=== PATIENT | male | born 1940 | race Caucasian/White ===

== ENCOUNTER 2017-05-29 11:58 | Emergency (ER) | payer MEDICARE, MEDICAID ==
[~2017-05-29] VITALS: Ht 177.8 cm; Wt 50.0 kg
[~2017-05-29 11:58] MED LIST: ACET325T15 PO; CHOL5000 PO; DOCU1CAP39 PO; FAMO20TA2 PO; FLUO5CRE TOPICAL; HYDRO2.5%T TOP; METH2.5 PO; METO25 PO; METO25TA3 PO; MIRTA15 PO; NORC5TAB PO; NYSTT TOPICAL; ONDA4TAB7 PO; POTA-243 PO
[2017-05-29 12:04] VITALS: BP 135/75; PULSE 103; RESP 18; TEMP 98.7; O2SAT 97
[2017-05-29 12:05] VITALS: BP 121/63; PULSE 106; RESP 16; O2SAT 98
--- NOTE | 2017-05-29 12:22 | PD ---
HPI Chief Complaint: Chest Pain Time Seen by Provider: 12:07 Travel History International Travel<30 days: No Contact w/Intl Traveler<30days: No Traveled to known affect area: No History of Present Illness HPI This patient complains of chest pain. Duration 3 days. Severity is moderate. Pain is present only when he tries to sit up or moves his chest wall. No injury. Pain promptly resolves once he is stationary. Shortness of breath. No pleuritic component. Feels like an aching sensation. Location is anterior sternum. He denies history of cardiac disease. Symptoms exacerbated by movement. Relieved by being stationary PFSH Past Medical History Arthritis: Yes Asthma: Yes Heart Rhythm Problems: No Cancer: Yes (PT NOT SURE WHERE, DIAGNOSED BACK IN MARCH) Cardiovascular Problems: Yes High Cholesterol: No Chemotherapy: No Chest Pain: No Congestive Heart Failure: No COPD: No Cerebrovascular Accident: No Diabetes: Yes Patient Takes Glucophage: No Diminished Hearing: No Endocrine: No Gastrointestinal Disorders: Yes (CONSTIPATION) GERD: No Genitourinary: Yes Hiatal Hernia: No Hypertension: Yes Immune Disorder: No Kidney Stones: No Musculoskeletal: Yes (INGUINAL HERNIA) Neurologic: Yes Psychiatric: No Reproductive: No Respiratory: Yes Migraines: No Radiation Therapy: No Renal Failure: No Seizures: No Sleep Apnea: No Ulcer: No Influenza Vaccination: No Past Surgical History Abdominal Surgery: No Cardiac Surgery: No Ear Surgery: No Endocrine Surgery: No Eye Surgery: Yes (cataracts removed) Genitourinary Surgery: No Gynecologic Surgery: No Oral Surgery: No Thoracic Surgery: No Other Surgery: Yes (right leg to help him walk x3) Social History Alcohol Use: No Tobacco Use: No Substance Use: No Allergies-Medications (Allergen,Severity, Reaction): Coded Allergies: penicillin G (Unverified Allergy, Unknown, 10/15/16) Reported Meds & Prescriptions Reported Meds & Active Scripts Active Ondansetron Odt 4 Mg Tab 4 Mg PO Q6H PRN Mirtazapine 15 Mg Tab 7.5 Mg PO HS 30 Days Metoprolol Tartrate 25 Mg Tab 12.5 Mg PO BID 30 Days Famotidine 20 Mg Tab 20 Mg PO BID 30 Days Eq Acetaminophen (Acetaminophen) 325 Mg Tab 650 Mg PO Q4H PRN Vitamin D3 (Cholecalciferol) 5,000 Unit Cap 5,000 Units PO DAILY 30 Days [place] (Hydrocodone-Acetaminophen) 5-325 mg Tab 1 Tab PO Q4H PRN Review of Systems General / Constitutional: No: Fever Eyes: No: Visual changes HENT: No: Headaches Cardiovascular: Positive: Chest Pain or Discomfort Respiratory: No: Shortness of Breath Gastrointestinal: No: Abdominal Pain Genitourinary: No: Dysuria Musculoskeletal: No: Pain Skin: No Rash Neurologic: No: Weakness Psychiatric: No: Depression Endocrine: No: Polydipsia Hematologic/Lymphatic: No: Easy Bruising Physical Exam Narrative GENERAL: Thin elderly well-developed patient in no apparent distress. SKIN: Focused skin assessment reveals no rash and nodules. Skin is Warm and dry. HEAD: Atraumatic. Normocephalic. EYES: Pupils equal and round. No scleral icterus. No injection or drainage. ENT: No nasal bleeding or discharge. Mucous membranes pink and moist. NECK: Trachea midline. No JVD. CARDIOVASCULAR: Regular rate and rhythm. No murmur appreciated. RESPIRATORY: No accessory muscle use. Clear to auscultation. Breath sounds equal bilaterally. GASTROINTESTINAL: Abdomen soft, non-tender, nondistended. Hepatic and splenic margins not palpable. MUSCULOSKELETAL: Has deformity of right upper extremity which is a defect. Also has deformity at the right knee. No clubbing. No cyanosis. No edema. NEUROLOGICAL: Awake and alert. No obvious cranial nerve deficits. Motor grossly within normal limits. Normal speech. PSYCHIATRIC: Appropriate mood and affect; insight and judgment normal. Data Data Last Documented VS Vital Signs Date Time Temp Pulse Resp B/P (MAP) Pulse Ox O2 Delivery O2 Flow Rate FiO2 05/29/17 13:05 100 18 105/75 (85) 99 Room Air 05/29/17 12:04 98.7 Orders Orders Chest, Single Ap (05/29/17 ) Electrocardiogram (05/29/17 12:00) [facility] Medical Decision Making Medical Screen Exam Complete: Yes Emergency Medical Condition: Yes Medical Record Reviewed: Yes Differential Diagnosis ACS, cardiac arrhythmia, musculoskeletal chest pain Narrative Course I have reviewed the patient's electronic medical record. I reviewed his EKG which shows sinus rhythm and no acute ST elevation I reviewed his chest x-ray which shows no pneumothorax or consolidation. Scattered nodules noted Patient should follow-up with primary care He has clear-cut musculoskeletal readily reproducible chest pain and will not require inpatient evaluation of this Diagnosis Primary Impression: Musculoskeletal chest pain Additional Impression: Cerebral palsy, infantile hemiplegia Additional Instructions: The patient was advised to follow up with their physician and return if they worsen. Med/Other Pt SpecificInfo: Other Disposition: 01 DISCHARGE HOME Condition: Stable Jd Lewis MD May 29, 2017 12:22
[2017-05-29 12:25] VITALS: BP 119/68; PULSE 104; RESP 17; O2SAT 99
[2017-05-29 12:45] VITALS: BP 113/74; PULSE 102; RESP 17; O2SAT 99
--- NOTE | 2017-05-29 12:47 | RADRPT ---
EXAM DATE/TIME: 05/29/2017 12:32 [place] COMPARISON: CHEST SINGLE AP, October 08, 2014, 17:28. INDICATIONS : Short of breath MEDICAL HISTORY : Diabetes mellitus type 2. Scrotal hernia. SURGICAL HISTORY : None. ENCOUNTER: Initial ACUITY: 1 day PAIN SCORE: 0/10 LOCATION: Bilateral chest FINDINGS: A single view of the chest demonstrates no focal consolidation. Parenchymal scarring in the lungs. Ap ical pleural thickening. Tortuous aorta. CONCLUSION: 1. No acute findings. Scattered scarring in the lungs. Apical pleural thickening. Jonathan Zuniga MD on May 29, 2017 at 12:44 Board Certified Radiologist. This report was verified electronically.
[2017-05-29 13:05] VITALS: BP 105/75; PULSE 100; RESP 18; O2SAT 99
[2017-05-29 15:43] VITALS: BP 124/73; PULSE 68; RESP 18; O2SAT 98
--- NOTE | 2017-05-30 14:39 | EKG ---
Date Performed: 05/29/2017 Time Performed: 12:00:06 PTAGE: 76 years EKG: SINUS TACHYCARDIA NONSPECIFIC T-WAVE ABNORMALITY ABNORMAL RHYTHM ECG Since PREVIOUS TRACING , no significant change noted PREVIOUS TRACIN07/30/2016 20.05 DOCTOR: Jefe Grissom Interpretating Date/Time 05/30/2017 14:38:08
== END 2017-05-29 15:49 | disposition home or self-care (01) ==
LOC: PHED 11:58
DX: R07.89 Other chest pain (principal); R06.02 Shortness of breath; R00.0 Tachycardia, unspecified; R94.31 Abnormal electrocardiogram [ECG] [EKG]; G80.8 Other cerebral palsy; M19.90 Unspecified osteoarthritis, unspecified site; J45.909 Unspecified asthma, uncomplicated; E11.9 Type 2 diabetes mellitus without complications; I10 Essential (primary) hypertension
CPT/HCPCS: 71045; 93005; 99284

== ENCOUNTER 2017-07-24 10:26 | Emergency (ER) | payer MEDICARE, MEDICAID ==
[~2017-07-24] VITALS: Ht 177.8 cm; Wt 58.0 kg
[~2017-07-24 10:26] MED LIST changes: -DOCU1CAP39 PO; -FLUO5CRE TOPICAL; -HYDRO2.5%T TOP; -METH2.5 PO; -METO25 PO; -NYSTT TOPICAL; -POTA-243 PO
[2017-07-24 10:28] VITALS: BP 105/44; PULSE 86; RESP 18; TEMP 97.4; O2SAT 100
--- NOTE | 2017-07-24 10:50 | PD ---
HPI Chief Complaint: Abnormal Results Time Seen by Provider: 10:33 Travel History International Travel<30 days: No Contact w/Intl Traveler<30days: No Traveled to known affect area: No History of Present Illness HPI This 76-year-old male was [facility] because of a low blood count. The patient denies any knowledge of this or previous knowledge of this. He has not had any dark stools that he is aware of. There has not been any vomiting. He does not complain of feeling weak or dizzy. He has not been short of breath. 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 He has seen Dr. Arroyo in the past. He has been diagnosed with LGL T-cell leukemia. He has had pancytopenia in the past he apparently has rheumatoid arthritis also and has been on methotrexate which apparently also treats his leukemia. He does not recall blood transfusions though his knowledge of medical illness appears somewhat limited. PFSH Past Medical History Arthritis: Yes Asthma: Yes Heart Rhythm Problems: No Cancer: Yes (PT NOT SURE WHERE) Cardiovascular Problems: Yes High Cholesterol: No Chemotherapy: No Chest Pain: No Congestive Heart Failure: No COPD: No Cerebrovascular Accident: No Diabetes: Yes Patient Takes Glucophage: No Diminished Hearing: No Endocrine: No Gastrointestinal Disorders: Yes (CONSTIPATION) GERD: No Genitourinary: Yes Hiatal Hernia: No Hypertension: Yes Immune Disorder: No Kidney Stones: No Neurologic: Yes Psychiatric: No Reproductive: No Respiratory: Yes Migraines: No Radiation Therapy: No Renal Failure: No Seizures: No Sleep Apnea: No Ulcer: No Past Surgical History Abdominal Surgery: No Cardiac Surgery: No Ear Surgery: No Endocrine Surgery: No Eye Surgery: Yes (cataracts removed) Genitourinary Surgery: No Gynecologic Surgery: No Oral Surgery: No Thoracic Surgery: No Other Surgery: Yes (right leg to help him walk x3) Social History Alcohol Use: No Tobacco Use: No Substance Use: No Allergies-Medications (Allergen,Severity, Reaction): Coded Allergies: penicillin G (Unverified Allergy, Unknown, 10/15/16) Reported Meds & Prescriptions Reported Meds & Active Scripts Active Ondansetron Odt 4 Mg Tab 4 Mg PO Q6H PRN Mirtazapine 15 Mg Tab 7.5 Mg PO HS 30 Days Metoprolol Tartrate 25 Mg Tab 12.5 Mg PO BID 30 Days Famotidine 20 Mg Tab 20 Mg PO BID 30 Days Eq Acetaminophen (Acetaminophen) 325 Mg Tab 650 Mg PO Q4H PRN Vitamin D3 (Cholecalciferol) 5,000 Unit Cap 5,000 Units PO DAILY 30 Days [place] (Hydrocodone-Acetaminophen) 5-325 mg Tab 1 Tab PO Q4H PRN Review of Systems General / Constitutional: No: Fever, Chills Eyes: No: Diploplia, Blurred Vision HENT: No: Headaches, Vertigo Cardiovascular: No: Chest Pain or Discomfort, Palpitations Respiratory: No: Cough, Shortness of Breath Gastrointestinal: No: Nausea, Vomiting Musculoskeletal: No: Myalgias, Arthralgias Skin: No Rash, No Itching Neurologic: Positive: Weakness Endocrine: No: Heat Intolerance, Cold Intolerance Hematologic/Lymphatic: No: Easy Bruising Physical Exam Narrative GENERAL: Well-developed male SKIN: Focused skin assessment warm/dry. HEAD: Atraumatic. Normocephalic. EYES: Pupils equal and round. No scleral icterus. No injection or drainage. ENT: No nasal bleeding or discharge. Mucous membranes pink and moist. NECK: Trachea midline. No JVD. CARDIOVASCULAR: Regular rate and rhythm. No murmur appreciated. RESPIRATORY: No accessory muscle use. Clear to auscultation. Breath sounds equal bilaterally. GASTROINTESTINAL: Abdomen soft, non-tender, nondistended. Hepatic and splenic margins not palpable. Stool is brown and guaiac negative MUSCULOSKELETAL: No obvious deformities. No clubbing. No cyanosis. No edema. NEUROLOGICAL: Awake and alert. No obvious cranial nerve deficits. There is a right-sided hemiparesis. Normal speech. PSYCHIATRIC: Appropriate mood and affect; insight and judgment normal. Data Data Last Documented VS Vital Signs Date Time Temp Pulse Resp B/P (MAP) Pulse Ox O2 Delivery O2 Flow Rate FiO2 07/24/17 10:39 100 Room Air 07/24/17 10:28 97.4 86 18 105/44 (64) Orders Orders Electrocardiogram (07/24/17 10:37) Complete Blood Count With Diff (07/24/17 10:37) Comprehensive Metabolic Panel (07/24/17 10:37) Chest, Single Ap (07/24/17 10:37) Type And Screen (07/24/17 10:37) Vitamin B12 (07/24/17 10:37) Folate, Serum (07/24/17 10:37) Iron/Tibc Profile (07/24/17 10:37) Labs Laboratory Tests Test 07/24/17 11:45 White Blood Count 3.6 TH/MM3 Red Blood Count 2.76 MIL/MM3 Hemoglobin 8.0 GM/DL Hematocrit 25.1 % Mean Corpuscular Volume 90.9 FL Mean Corpuscular Hemoglobin 29.0 PG Mean Corpuscular Hemoglobin Concent 31.9 % Red Cell Distribution Width 18.0 % Platelet Count 151 TH/MM3 Mean Platelet Volume 6.7 FL Neutrophils (%) (Auto) 62.0 % Lymphocytes (%) (Auto) 28.7 % Monocytes (%) (Auto) 8.0 % Eosinophils (%) (Auto) 0.5 % Basophils (%) (Auto) 0.8 % Neutrophils # (Auto) 2.3 TH/MM3 Lymphocytes # (Auto) 1.0 TH/MM3 Monocytes # (Auto) 0.3 TH/MM3 Eosinophils # (Auto) 0.0 TH/MM3 Basophils # (Auto) 0.0 TH/MM3 CBC Comment DIFF FINAL Differential Comment Blood Urea Nitrogen 21 MG/DL Creatinine 0.88 MG/DL Random Glucose 84 MG/DL Total Protein 7.0 GM/DL Albumin 2.6 GM/DL Calcium Level 9.1 MG/DL Alkaline Phosphatase 83 U/L Aspartate Amino Transf (AST/SGOT) 29 U/L Alanine Aminotransferase (ALT/SGPT) 9 U/L Total Bilirubin 0.5 MG/DL Sodium Level 138 MEQ/L Potassium Level 4.3 MEQ/L Chloride Level 107 MEQ/L Carbon Dioxide Level 25.3 MEQ/L Anion Gap 6 MEQ/L Estimat Glomerular Filtration Rate 84 ML/MIN [facility] Medical Decision Making Medical Screen Exam Complete: Yes Emergency Medical Condition: Yes Medical Record Reviewed: Yes Differential Diagnosis Differential includes iron deficiency anemia, chronic anemia, Narrative Course Most recent hemoglobin levels have been around 10 or 11. The value today is 8. The patient is not ambulatory he has no complaint of dyspnea. His stool is guaiac positive he is not losing blood. He has had chronic anemia in the past and has seen Dr. Montoya. I have tried to call Dr. Montoya but he is not available. The patient is stable and is not in need of transfusion at this time. He will be returned to [facility] Diagnosis Primary Impression: Anemia Additional Instructions: Follow-up with Dr. Montoya and Dr. Early Disposition: 03 DISCHARGE TO SNF Condition: Stable Tone Dunbar MD July 24, 2017 10:50
--- NOTE | 2017-07-24 11:24 | RADRPT ---
EXAM DATE: 07/24/2017 11:17 AM EDT AGE/SEX: 76 years / Male INDICATIONS: Short of breath CLINICAL DATA: This is the patient's initial encounter. Patient reports that signs and symptoms have been present for 1 day and indicates a pain score of 0/10. MEDICAL/SURGICAL HISTORY: Hypertension. Asthma. Leukemia. None. COMPARISON: PO, CHEST SINGLE AP, 05/29/2017. . FINDINGS: Lungs are hyperinflated but focally clear. No pleural effusion is identified. Biapical pleural thicke douglas is noted. Cardiac contours are grossly stable accounting for differences in technique and projec tion. CONCLUSION: Stable chest. No acute disease. Electronically signed by: Les Hebert MD 07/24/2017 11:22 AM EDT
[2017-07-24 11:59] LABS: AUTOMATED NEUTROPHIL # 2.3 TH/MM3 (1.8-7.7); BASOPHIL % 0.8 % (0.0-2.0); EOSINOPHIL % 0.5 % (0.0-4.0); HEMATOCRIT 25.1 % (39.0-51.0); LYMPH % 28.7 % (9.0-44.0); MEAN CELL VOLUME 90.9 FL (80.0-100.0); MEAN CORPUSCULAR HGB CONC 31.9 % (32.0-36.0); MEAN PLATELET VOLUME 6.7 FL (7.0-11.0); MONOCYTE # 0.3 TH/MM3 (0-0.9); PLATELET COUNT 151 TH/MM3 (150-450); RED BLOOD COUNT 2.76 MIL/MM3 (4.50-5.90); WHITE BLOOD COUNT 3.6 TH/MM3 (4.0-11.0)
[2017-07-24 12:06] LABS: CHLORIDE 107 MEQ/L (98-107); SODIUM (NA) 138 MEQ/L (136-145)
[2017-07-24 12:09] LABS: ALBUMIN 2.6 GM/DL (3.4-5.0); BICARBONATE 25.3 MEQ/L (21.0-32.0); BLOOD UREA NITROGEN 21 MG/DL (7-18); CALCIUM 9.1 MG/DL (8.5-10.1); GLUCOSE,RANDOM 84 MG/DL (74-106)
[2017-07-24 12:12] LABS: ALT (GPT) 9 U/L (12-78)
[2017-07-24 12:13] LABS: AST (GOT) 29 U/L (15-37); CREATININE 0.88 MG/DL (0.60-1.30); GLOMERULAR FILTRATION RATE 84 ML/MIN (>89)
[2017-07-24 12:14] LABS: TOTAL BILIRUBIN ADULT 0.5 MG/DL (0.2-1.0)
[2017-07-24 12:15] LABS: ALKALINE PHOSPHATASE 83 U/L (45-117)
[2017-07-24 12:30] VITALS: BP 105/44; PULSE 76; RESP 16; O2SAT 98
[2017-07-24 13:31] VITALS: BP 119/51; PULSE 78; RESP 16; O2SAT 98
[2017-07-24 14:03] LABS: % SATURATION IRON PROFILE 65.9 % (20-50); IRON (FE) 155 MCG/DL (65-175); TOTAL IRON BINDING CAPACITY 235 MCG/DL (250-450)
[2017-07-24 14:28] LABS: FOLATE 4.2 NG/ML (3.1-17.5)
--- NOTE | 2017-07-24 19:39 | EKG ---
Date Performed: 07/24/2017 Time Performed: 10:52:45 PTAGE: 76 years EKG: Sinus rhythm NORMAL ECG Compared to PREVIOUS TRACING , the patient is no longer tachycardic. PREVIOUS TRACIN05/29/2017 12. 00 DOCTOR: Nae Torres Interpretating Date/Time 07/24/2017 19:38:22
== END 2017-07-24 15:09 | disposition home or self-care (01) ==
LOC: PHED 10:26
DX: D64.9 Anemia, unspecified (principal); G80.9 Cerebral palsy, unspecified; I10 Essential (primary) hypertension; E11.9 Type 2 diabetes mellitus without complications; J45.909 Unspecified asthma, uncomplicated; C91.Z0 Other lymphoid leukemia not having achieved remission; M06.9 Rheumatoid arthritis, unspecified
CPT/HCPCS: 71045; 80053; 82607; 82746; 83540; 83550; 85025; 86850; 86900; 86901; 93005

== ENCOUNTER 2018-01-13 12:40 | Inpatient (IN) ==
[2018-01-13] MEDS ORDERED: Pantoprazole Inj 40 MG Vial IV.PUSH ONE (13:36)
--- NOTE | 2018-01-13 13:36 | ED ---
HPI General Chief complaint: Weakness Stated complaint: Gen med Time Seen by Provider: 01/13/18 13:01 History of Present Illness HPI narrative: This is a 77-year-old male who presents from [facility] for evaluation. I spoke to a staff member at [facility] in order to obtain most of the patient's information. Over the past few months the patient has been having a decline in his health and his activities of daily living. Typically the patient ambulates in a wheelchair but he has been mostly spending time in bed, not eating, defecating in the bed. Today a physician made a house visit and decided to send the patient here for further evaluation. The patient reports that he has been feeling generally tired and weak for the past several weeks. He denies any chest pain, shortness of breath, headache, dizziness, nausea, vomiting, fevers. He reports that his primary care physician is Dr. Foster. He has no other complaints at this time. Related Data Home Medications Medication Instructions Recorded Confirmed Lactobacillus acidoph-pectin 2 tab PO DAILY 01/13/18 01/13/18 [Acidophilus-Pectin] diphenoxylate-atropine 2 tab PO Q6-8H PRN 01/13/18 01/13/18 hydroxyzine HCl 25 mg PO TID-QID 01/13/18 01/13/18 metoprolol tartrate 25 mg PO BID 01/13/18 01/13/18 Allergies Allergy/AdvReac Type Severity Reaction Status Date / Time penicillin G Allergy Unknown Hives Verified 01/13/18 13:16 Review of Systems ROS: all other systems reviewed are negative [facility] Social History Social History Substance History: No History of Abuse Smoking Status: Former smoker Tobacco Type: Cigarettes How Often Do You Have a Drink Containing Alcohol: Never Immunization History Tetanus Immunization: Unsure Exam Narrative Exam Narrative: GENERAL: This is a thin disheveled elderly male who appears chronically ill. SKIN: Warm and dry. There is some skin breakdown noted on the buttocks bilaterally. HEAD: Atraumatic. Normocephalic. EYES: Pupils equal and round. No scleral icterus. No injection or drainage. ENT: No nasal bleeding or discharge. Mucous membranes pink and moist. NECK: Trachea midline. No JVD. CARDIOVASCULAR: Regular rate and rhythm. No murmur appreciated. RESPIRATORY: No accessory muscle use. Clear to auscultation. Breath sounds equal bilaterally. GASTROINTESTINAL: Abdomen soft, non-tender, nondistended. Hepatic and splenic margins not palpable. The scrotum itself is enlarged and appears to have a right-sided inguinal hernia. Stool is dark brown, slightly maroon colored, Hemoccult positive. MUSCULOSKELETAL: No obvious deformities. No clubbing. No cyanosis. No edema. NEUROLOGICAL: Awake and alert. No obvious cranial nerve deficits. Motor grossly within normal limits. Normal speech. Procedures Hemaprompt Stool Procedural Steps Taken: specimen placed in appropriate test area, developer placed on specimen and control areas and controls appropriately positive and negative Hemaprompt Stool Result: positive Course Initial Documented Vital Signs Pulse Oximetry 100 01/13/18 13:15 Last Documented Vital Signs Temperature 97.8 F 01/13/18 13:17 Pulse Rate 95 H 01/13/18 15:20 Respiratory Rate 18 01/13/18 15:20 Blood Pressure 105/57 L 01/13/18 15:20 Pulse Oximetry 100 01/13/18 15:20 Medical Decision Making SHARON Attestation SHARON supervised visit: Yes Attestation: I, Dr. Klein, have reviewed the advance practice practitioner's documentation and am in agreement, met with the patient face to face, made the diagnosis, and the medical decision making was done by me. *My assessment and Findings: Patient is a 77 year old male who presents to the ER with complaints of generalized weakness. Patient with neutropenia with bandemia, he will be pancultured and will be given a dose of cefepime 2grams and will be admitted to the hospital. MDM Narrative Medical decision making narrative: The patient was placed on ECG monitoring pulse oximetry. Twelve-lead EKG obtained. Lab work, chest x-ray, urinalysis ordered. 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 Montoya. The patient is neutropenic as well as pandemic with 9% band neutrophils. IV cefepime, vancomycin initiated. Blood cultures are currently pending. UA is consistent with UTI. The patient will be admitted for further treatment. Medical Screen Exam Complete: Yes Emergency Medical Condition: Yes Lab Data Result diagrams: 01/13/18 13:36 01/13/18 13:36 Lab Results 01/13/18 01/13/18 01/13/18 Range/Units 13:25 13:25 13:36 WBC (4.0-11.0) th/mm3 RBC (4.50-5.90) mil/mm3 Hgb (13.0-17.0) gm/dL Hct (39.0-51.0) % MCV (80.0-100.0) fL MCH (27.0-34.0) pg MCHC (32.0-36.0) % RDW (11.6-17.2) % Plt Count (150-450) th/mm3 MPV (7.0-11.0) fL Prelim Diff (Auto) WBC Differential Seg Neuts % (Manual) (16-70) % Band Neuts % (Manual) (0-6) % Lymphocytes % (Manual) (9-44) % Monocytes % (Manual) (0-8) % Eosinophils % (Manual) (0-4) % Basophils % (Manual) (0-2) % Metamyelocytes % (Man) (0-1) % Abs Neuts (Manual) (1.8-7.7) th/mm3 Differential Comment Platelet Estimate (Normal) Platelet Morphology (Normal) PT 10.5 (9.8-11.6) sec INR 1.0 Ratio APTT 26.2 (23.4-31.7) sec Sodium (136-145) meq/L Potassium (3.5-5.1) meq/L Chloride (98-107) meq/L Carbon Dioxide (21.0-32.0) meq/L Anion Gap (5-15) meq/L BUN (7-18) mg/dL Creatinine (0.60-1.30) mg/dL Estimated GFR (>89) mL/min Random Glucose (74-106) mg/dL Lactic Acid 1.5 (0.4-2.0) mmol/L Calcium (8.5-10.1) mg/dL Magnesium (1.5-2.5) mg/dL Total Bilirubin (0.2-1.0) mg/dL AST (15-37) U/L ALT (12-78) U/L Alkaline Phosphatase (45-117) U/L Ammonia 27 (11-32) mcmol/L Total Creatine Kinase (39-308) U/L Troponin I (0.02-0.05) ng/mL Total Protein (6.4-8.2) g/dL Albumin (3.4-5.0) g/dL Urine Color (Yellw/Straw) Urine Clarity (Clear) Urine pH (5.0-8.5) Ur Specific Stafford (1.002-1.035) Urine Protein (Neg-Trace) mg/dL Urine Glucose (UA) (Negative) mg/dL Urine Ketones (Negative) mg/dL Urine Occult Blood (Negative) Urine Nitrate (Negative) Urine Bilirubin (Negative) Urine Urobilinogen (Less than 2) mg/dL Ur Leukocyte Esterase (Negative) Urine RBC (0-3) /hpf Urine WBC (0-5) /hpf Urine WBC Clumps (None) Urine Bacteria (None) /hpf Urine Mucus (Occasional) /lpf Micro UA Comment Ur Microscopic Review Urine Culture Comments Blood Type Antibody Screen 01/13/18 01/13/18 01/13/18 Range/Units 13:36 13:36 13:36 WBC 1.2 L (4.0-11.0) th/mm3 RBC 3.29 L (4.50-5.90) mil/mm3 Hgb 9.7 L (13.0-17.0) gm/dL Hct 29.6 L (39.0-51.0) % MCV 90.1 (80.0-100.0) fL MCH 29.6 (27.0-34.0) pg MCHC 32.8 (32.0-36.0) % RDW 16.9 (11.6-17.2) % Plt Count 125 L (150-450) th/mm3 MPV 7.4 (7.0-11.0) fL Prelim Diff (Auto) Manual diff required WBC Differential Manual diff final Seg Neuts % (Manual) 17 (16-70) % Band Neuts % (Manual) 9 H (0-6) % Lymphocytes % (Manual) 47 H (9-44) % Monocytes % (Manual) 21 H (0-8) % Eosinophils % (Manual) 2 (0-4) % Basophils % (Manual) 2 (0-2) % Metamyelocytes % (Man) 2 H (0-1) % Abs Neuts (Manual) 0.3 L* (1.8-7.7) th/mm3 Differential Comment . Platelet Estimate Low L (Normal) Platelet Morphology Normal (Normal) PT (9.8-11.6) sec INR Ratio APTT (23.4-31.7) sec Sodium 139 (136-145) meq/L Potassium 4.2 (3.5-5.1) meq/L Chloride 105 (98-107) meq/L Carbon Dioxide 25.1 (21.0-32.0) meq/L Anion Gap 9 (5-15) meq/L BUN 45 H (7-18) mg/dL Creatinine 1.05 (0.60-1.30) mg/dL Estimated GFR 68 L (>89) mL/min Random Glucose 86 (74-106) mg/dL Lactic Acid (0.4-2.0) mmol/L Calcium 8.5 (8.5-10.1) mg/dL Magnesium 2.4 (1.5-2.5) mg/dL Total Bilirubin 0.8 (0.2-1.0) mg/dL AST 17 (15-37) U/L ALT 13 (12-78) U/L Alkaline Phosphatase 73 (45-117) U/L Ammonia (11-32) mcmol/L Total Creatine Kinase 18 L (39-308) U/L Troponin I Less than 0.02 L (0.02-0.05) ng/mL Total Protein 7.1 (6.4-8.2) g/dL Albumin 2.3 L (3.4-5.0) g/dL Urine Color (Yellw/Straw) Urine Clarity (Clear) Urine pH (5.0-8.5) Ur Specific Stafford (1.002-1.035) Urine Protein (Neg-Trace) mg/dL Urine Glucose (UA) (Negative) mg/dL Urine Ketones (Negative) mg/dL Urine Occult Blood (Negative) Urine Nitrate (Negative) Urine Bilirubin (Negative) Urine Urobilinogen (Less than 2) mg/dL Ur Leukocyte Esterase (Negative) Urine RBC (0-3) /hpf Urine WBC (0-5) /hpf Urine WBC Clumps (None) Urine Bacteria (None) /hpf Urine Mucus (Occasional) /lpf Micro UA Comment Ur Microscopic Review Urine Culture Comments Blood Type A Positive Antibody Screen Negative 01/13/18 Range/Units 13:36 WBC (4.0-11.0) th/mm3 RBC (4.50-5.90) mil/mm3 Hgb (13.0-17.0) gm/dL Hct (39.0-51.0) % MCV (80.0-100.0) fL MCH (27.0-34.0) pg MCHC (32.0-36.0) % RDW (11.6-17.2) % Plt Count (150-450) th/mm3 MPV (7.0-11.0) fL Prelim Diff (Auto) WBC Differential Seg Neuts % (Manual) (16-70) % Band Neuts % (Manual) (0-6) % Lymphocytes % (Manual) (9-44) % Monocytes % (Manual) (0-8) % Eosinophils % (Manual) (0-4) % Basophils % (Manual) (0-2) % Metamyelocytes % (Man) (0-1) % Abs Neuts (Manual) (1.8-7.7) th/mm3 Differential Comment Platelet Estimate (Normal) Platelet Morphology (Normal) PT (9.8-11.6) sec INR Ratio APTT (23.4-31.7) sec Sodium (136-145) meq/L Potassium (3.5-5.1) meq/L Chloride (98-107) meq/L Carbon Dioxide (21.0-32.0) meq/L Anion Gap (5-15) meq/L BUN (7-18) mg/dL Creatinine (0.60-1.30) mg/dL Estimated GFR (>89) mL/min Random Glucose (74-106) mg/dL Lactic Acid (0.4-2.0) mmol/L Calcium (8.5-10.1) mg/dL Magnesium (1.5-2.5) mg/dL Total Bilirubin (0.2-1.0) mg/dL AST (15-37) U/L ALT (12-78) U/L Alkaline Phosphatase (45-117) U/L Ammonia (11-32) mcmol/L Total Creatine Kinase (39-308) U/L Troponin I (0.02-0.05) ng/mL Total Protein (6.4-8.2) g/dL Albumin (3.4-5.0) g/dL Urine Color Ariane (Yellw/Straw) Urine Clarity Turbid H (Clear) Urine pH 5.0 (5.0-8.5) Ur Specific Stafford 1.015 (1.002-1.035) Urine Protein 100 H (Neg-Trace) mg/dL Urine Glucose (UA) Negative (Negative) mg/dL Urine Ketones Trace H (Negative) mg/dL Urine Occult Blood Large H (Negative) Urine Nitrate Negative (Negative) Urine Bilirubin Negative (Negative) Urine Urobilinogen 4 or greater (Less than 2) mg/dL Ur Leukocyte Esterase Moderate H (Negative) Urine RBC (0-3) /hpf Urine WBC (0-5) /hpf Urine WBC Clumps Many H (None) Urine Bacteria Many H (None) /hpf Urine Mucus Many H (Occasional) /lpf Micro UA Comment Cath-culture ind Ur Microscopic Review Not Reportable Urine Culture Comments Cath-cult indicated Blood Type Antibody Screen Imaging Data Radiologist's impression: Chest X-Ray 01/13/18 13:14 CONCLUSION: No acute cardiopulmonary process. There is chronic change described above. Head CT 01/13/18 13:14 CONCLUSION: 1. No acute abnormality is seen. 2. Chronic cerebral atrophy. 3. Areas of encephalomalacia in the left periventricular region extending to the posterior left basal ganglia. . Scrotum Ultrasound 01/13/18 13:17 CONCLUSION: 1. Bilateral inguinal hernias. 2. The testicles appear normal. 3. Bilateral mild hydroceles. ECG Data EKG Prior to Arrival: No Attestation: I personally reviewed and interpreted this ECG as follows: Interpretation: EKG at 1447: NSR at 92bpm, qt/qtc: 351/401, no acute st or t wave changes Discharge Plan Discharge Disposition Patient Disposition: 30 Still Patient Discharge Condition Condition: Stable Discharge Details Diagnosis: Neutropenia, Acute UTI, GI bleed, Adult failure to thrive Physicians Team ED Provider: Liya Klein ED Midlevel Provider: Julien Pan Primary Care Provider: UNKNOWN, Rxs /Orders / Referrals /Forms Prescriptions: No Action diphenoxylate-atropine 2.5-0.025 mg Tablet 2 tab PO Q6-8H PRN (Reason: Diarrhea) RF: 0 hydroxyzine HCl 25 mg Tablet 25 mg PO TID-QID RF: 0 Lactobacillus acidoph-pectin [Acidophilus-Pectin] Tablet,Chewable 2 tab PO DAILY RF: 0 metoprolol tartrate 25 mg Tablet 25 mg PO BID RF: 0 Status ED Status: With Doctor
--- NOTE | 2018-01-13 13:40 | XR ---
EXAM DATE: 01/13/2018 1:35 PM EST AGE/SEX: 77 years / Male INDICATIONS: Weakness, short of breath. CLINICAL DATA: This is the patient's initial encounter. Patient reports that signs and symptoms have been present for 1 day and indicates a pain score of 0/10. MEDICAL/SURGICAL HISTORY: None. None. COMPARISON: [facility], CHEST SINGLE AP, 07/24/2017. . FINDINGS: The patient is rotated towards the left. The heart size appears normal. The lungs are grossly clear. There is some stable biapical pleural and parenchymal thickening. There is some compressive changes a t the mid thoracic spine. This was present previously. CONCLUSION: No acute cardiopulmonary process. There is chronic change described above. Electronically signed by: Les Velazquez MD 01/13/2018 1:38 PM EST
[2018-01-13 14:00] LABS: Hematocrit 29.6 % (39.0-51.0); Hemoglobin 9.7 gm/dL (13.0-17.0); Mean Corpuscular HGB Conc 32.8 % (32.0-36.0); Mean Corpuscular Hemoglobin 29.6 pg (27.0-34.0); Mean Corpuscular Volume 90.1 fL (80.0-100.0); Mean Platelet Volume 7.4 fL (7.0-11.0); Platelet Count 125 th/mm3 (150-450); Red Blood Count 3.29 mil/mm3 (4.50-5.90); Red Cell Distribution Width 16.9 % (11.6-17.2); White Blood Count 1.2 th/mm3 (4.0-11.0)
[2018-01-13 14:04] LABS: Bacteria,Urine Many /hpf; Bilirubin,Urine Negative (Negative); Clarity,Urine Turbid (Clear); Glucose,Urine (UA) Negative (Negative); Leukocyte Esterase,Urine Moderate (Negative); Mucus,Urine Many /lpf (Occasional); Nitrite,Urine Negative (Negative); Specific Gravity,Urine 1.015 (1.002-1.035); Urobilinogen,Urine 4 or Greater mg/dL (Less than 2)
[2018-01-13 14:05] LABS: Color,Urine Amber (Yellw/Straw)
[2018-01-13 14:07] LABS: Activated Partial Thrombo Time 26.2 sec (23.4-31.7); Prothrombin Time 10.5 sec (9.8-11.6)
[2018-01-13 14:24] LABS: Alanine Aminotransferase 13 U/L (12-78); Albumin 2.3 g/dL (3.4-5.0); Anion Gap 9 meq/L (5-15); Aspartate Aminotransferase 17 U/L (15-37); Blood Urea Nitrogen 45 mg/dL (7-18); Calcium 8.5 mg/dL (8.5-10.1); Carbon Dioxide 25.1 meq/L (21.0-32.0); Chloride 105 meq/L (98-107); Glomerular Filtration Rate 68 mL/min (>89); Glucose,Random 86 mg/dL (74-106); Magnesium 2.4 mg/dL (1.5-2.5); Potassium 4.2 meq/L (3.5-5.1); Sodium 139 meq/L (136-145)
[2018-01-13 14:27] LABS: Alkaline Phosphatase 73 U/L (45-117); Total Protein 7.1 g/dL (6.4-8.2)
[2018-01-13 14:40] LABS: Creatine Kinase 18 U/L (39-308)
[2018-01-13 14:44] LABS: Eosinophils 2 % (0-4); Lymphocytes 47 % (9-44); Metamyelocytes 2 % (0-1); Monocytes 21 % (0-8)
[2018-01-13 14:46] LABS: Platelet Morphology Normal (Normal)
--- NOTE | 2018-01-13 15:09 | US ---
EXAM DATE: 01/13/2018 2:56 PM EST AGE/SEX: 77 years / Male INDICATIONS: Right testicular enlargement. Possible inguinal hernia. CLINICAL DATA: This is the patient's initial encounter. Patient reports that signs and symptoms have been present for 1 day and indicates a pain score of 0/10. MEDICAL/SURGICAL HISTORY: . Diarrhea. Nausea. None. COMPARISON: . MEASUREMENTS: Right Testicle:__2.9 x 2.5 x 2.3 cm Left Testicle:__3.4 x 2.2 x 2.3 cm FINDINGS: Bowel seen within the inguinal regions bilaterally. RIGHT: Testicle: Homogeneous echotexture without intra or extratesticular mass. Blood flow is symmetric and within normal limits. Epididymis: Within normal limits. Hydrocele: Small hydrocele present. Varicocele: No evidence of varicocele. LEFT: Testicle: Homogeneous echotexture without intra or extratesticular mass. Blood flow is symmetric and within normal limits. Epididymis: Within normal limits. Hydrocele: Small hydrocele present. Varicocele: No evidence of varicocele. CONCLUSION: 1. Bilateral inguinal hernias. 2. The testicles appear normal. 3. Bilateral mild hydroceles. Electronically signed by: Les Velazquez MD 01/13/2018 3:07 PM EST
--- NOTE | 2018-01-13 15:25 | CT ---
EXAM DATE: 01/13/2018 3:17 PM EST AGE/SEX: 77 years / Male INDICATIONS: Altered mental status generalize weakness CLINICAL DATA: This is the patient's initial encounter. Patient reports that signs and symptoms have been present for 1 day and indicates a pain score of 0/10. MEDICAL/SURGICAL HISTORY: Arthritis. Leukemia. Myelodysplastic syndrome, inguinal hernia None. RADIATION DOSE: 56.35 CTDI (mGy) COMPARISON: [facility] [place], CT BRAIN W/O CONTRAST, 07/30/2016. . TECHNIQUE: CT of the head without contrast. Using automated exposure control and adjustment of the mA and/or kV according to patient size, radiation dose was kept as low as reasonably achievable to ob tain optimal diagnostic quality images. DICOM format image data is available electronically for revi ew and comparison. FINDINGS: Cerebrum: The ventricles and cortical sulci are widened. There is encephalomalacia seen in the left paraventricular region extending down towards the posterior aspect of the basal ganglia. No evidenc e of midline shift, mass lesion, hemorrhage or acute infarction. No extraaxial fluid collections are seen. Posterior Fossa: The cerebellum and brainstem are intact. The 4th ventricle is midline. The cerebe llopontine angle is unremarkable. There are some expansion of the extra-axial spaces over the left ce rebellar hemisphere. This appears chronic, it was present previously. This could be from a prior subd ural hemorrhage. No acute abnormality seen in the posterior fossa. Extracranial: The visualized portion of the orbits is intact. Skull: The calvaria is intact. No evidence of skull fracture. CONCLUSION: 1. No acute abnormality is seen. 2. Chronic cerebral atrophy. 3. Areas of encephalomalacia in the left periventricular region extending to the posterior left basa l ganglia. . Electronically signed by: Les Velazquez MD 01/13/2018 3:24 PM EST
[2018-01-13] MEDS ORDERED: Vancomycin Inj 1,000 MG in Sodium Chlor 0.9% Inj 250 ML IV.SIG ONE (15:55)
[2018-01-13] MEDS ORDERED: Acetaminophen 325 MG Tablet PO PRN (16:27)
[2018-01-13] MEDS: Sod Chloride 0.9% Inj 1,000 ML IV.CONT SCH (16:49)
--- NOTE | 2018-01-13 16:59 | P.HP ---
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 Patient is a resident at local nursing facility. Apparently over the past several days patient has had decreased appetite and has been defecating on himself. He was seen by a general administrator doctor today who suggested patient be sent to the ED for evaluation. Patient is alert and oriented x3 during my exam and report appropriately to all my questions. Abnormal lab include severe pancytopenia, neutropenia and abnormal UA. Patient had a normal head CT. Inpatient Certification: I certify that the inpatient services were ordered in accordance with Medicare regulations governing the order. This includes certification that hospital inpatient services are reasonable and necessary and in the case of services not specified as inpatient-only under 42 CFR 419.22(n), that they are appropriately provided as inpatient services in accordance to with the 2-midnight benchmark under 43 CFR 412.3(e) Estimated Total Length of Stay (Days): 2 Plans for Post Hospital Care: SNF Review of Systems All other systems reviewed negative except as stated in HPI PMFSH - Medical History Medical History: Medical History (Last Reviewed 01/13/18 @ 13:19 by Kamryn Ornelas) Diarrhea Hernia of abdominal wall Nausea - Family History Family History: Family History (Last Updated 01/13/18 @ 16:44 by Anthony Lui MD) Other Cancer - Tobacco History Smoking Status: Former smoker Tobacco Type: Cigarettes - Alcohol History How Often Do You Have a Drink Containing Alcohol: Never - Substance Use History Substance History: No History of Abuse - Immunization History Tetanus Immunization: Unsure Medications and Allergies Active Medications: Active Medications Acetaminophen (Tylenol) 650 mg PO Q4H PRN PRN Reason: Temp > 100.4 Al Hydroxide/Mg Hydroxide (Milk Of Magnesia Liq) 30 ml PO Q12H PRN PRN Reason: Mild Constipation Vancomycin HCl 1,000 mg/ (Sodium Chloride) 250 mls @ 250 mls/hr IV.SIG ONCE ONE Stop: 01/13/18 16:54 Cefepime HCl 2,000 mg/ Sodium (Chloride) 100 mls @ 200 mls/hr IV.SIG Q12H JOSÉ Sodium Chloride (Ns Inj) 1,000 mls @ 70 mls/hr IV.CONT .[id number] JOSÉ Vancomycin HCl 1,000 mg/ (Sodium Chloride) 250 mls @ 250 mls/hr IV.SIG Q24H JOSÉ Lactobacillus Acidophilus (Lactinex) 1 tab PO TID JOSÉ Metoprolol Tartrate (Lopressor) 25 mg PO BID JOSÉ Ondansetron HCl (Zofran Inj) 4 mg IV.PUSH Q6H PRN PRN Reason: NAUSEA OR VOMITING Sodium Chloride (Ns Flush) 2 ml IV.FLUSH PRN PRN PRN Reason: FLUSH AFTER USING IV ACCESS Allergies Allergy/AdvReac Type Severity Reaction Status Date / Time penicillin G Allergy Unknown Hives Verified 01/13/18 13:16 Home Medications Medication Instructions Recorded Confirmed Type Lactobacillus acidoph-pectin 2 tab PO DAILY 01/13/18 01/13/18 History [Acidophilus-Pectin] diphenoxylate-atropine 2 tab PO Q6-8H PRN 01/13/18 01/13/18 History hydroxyzine HCl 25 mg PO TID-QID 01/13/18 01/13/18 History metoprolol tartrate 25 mg PO BID 01/13/18 01/13/18 History Exam Vital signs: Vital Signs 01/13/18 13:15 01/13/18 13:17 01/13/18 15:20 Temperature 97.8 F Pulse Rate 99 H 95 H Respiratory Rate 20 18 Blood Pressure 117/64 105/57 L Pulse Oximetry 100 99 100 Intake & Output 01/12/18 01/13/18 01/13/18 18:59 06:59 18:59 Intake Total 100 / 100 Balance 100 / 100 Intake: IV 100 / 100 Rocephin Inj 1,000 MG In NS Inj 100 / 100 100 ML @ 200 mls/hr IV.SIG ONCE ONE Rx#:[id number] Narrative: GENERAL: NAD SKIN: Warm and dry. HEAD: Atraumatic. Normocephalic. EYES: Pupils equal and round. No scleral icterus. No injection or drainage. ENT: No nasal bleeding or discharge. Mucous membranes pink and moist. NECK: Trachea midline. No JVD. CARDIOVASCULAR: Regular rate and rhythm. RESPIRATORY: No accessory muscle use. Clear to auscultation. Breath sounds equal bilaterally. GASTROINTESTINAL: Abdomen soft, non-tender, nondistended. Hepatic and splenic margins not palpable. MUSCULOSKELETAL: Extremities without clubbing, cyanosis, or edema. deformity of both upper and lower right extremities : enlarged scrotum NEUROLOGICAL: Awake and alert. No obvious cranial nerve deficits. Motor grossly within normal limits. Five out of 5 muscle strength in the arms and legs. Normal speech. PSYCHIATRIC: Appropriate mood and affect; insight and judgment normal. Results - Labs CBC & Chem 7: 01/13/18 13:36 01/13/18 13:36 Labs: Laboratory Results - last 24 hr 01/13/18 01/13/18 01/13/18 13:25 13:25 13:36 WBC RBC Hgb Hct MCV MCH MCHC RDW Plt Count MPV Prelim Diff (Auto) WBC Differential Seg Neuts % (Manual) Band Neuts % (Manual) Lymphocytes % (Manual) Monocytes % (Manual) Eosinophils % (Manual) Basophils % (Manual) Metamyelocytes % (Man) Abs Neuts (Manual) Differential Comment Platelet Estimate Platelet Morphology PT 10.5 INR 1.0 APTT 26.2 Sodium Potassium Chloride Carbon Dioxide Anion Gap BUN Creatinine Estimated GFR Random Glucose Lactic Acid 1.5 Calcium Magnesium Total Bilirubin AST ALT Alkaline Phosphatase Ammonia 27 Total Creatine Kinase Troponin I Total Protein Albumin Urine Color Urine Clarity Urine pH Ur Specific [place] Urine Protein Urine Glucose (UA) Urine Ketones Urine Occult Blood Urine Nitrate Urine Bilirubin Urine Urobilinogen Ur Leukocyte Esterase Urine RBC Urine WBC Urine WBC Clumps Urine Bacteria Urine Mucus Micro UA Comment Ur Microscopic Review Urine Culture Comments Blood Type Antibody Screen 01/13/18 01/13/18 01/13/18 13:36 13:36 13:36 WBC 1.2 L RBC 3.29 L Hgb 9.7 L Hct 29.6 L MCV 90.1 MCH 29.6 MCHC 32.8 RDW 16.9 Plt Count 125 L MPV 7.4 Prelim Diff (Auto) Manual diff required WBC Differential Manual diff final Seg Neuts % (Manual) 17 Band Neuts % (Manual) 9 H Lymphocytes % (Manual) 47 H Monocytes % (Manual) 21 H Eosinophils % (Manual) 2 Basophils % (Manual) 2 Metamyelocytes % (Man) 2 H Abs Neuts (Manual) 0.3 L* Differential Comment . Platelet Estimate Low L Platelet Morphology Normal PT INR APTT Sodium 139 Potassium 4.2 Chloride 105 Carbon Dioxide 25.1 Anion Gap 9 BUN 45 H Creatinine 1.05 Estimated GFR 68 L Random Glucose 86 Lactic Acid Calcium 8.5 Magnesium 2.4 Total Bilirubin 0.8 AST 17 ALT 13 Alkaline Phosphatase 73 Ammonia Total Creatine Kinase 18 L Troponin I Less than 0.02 L Total Protein 7.1 Albumin 2.3 L Urine Color Urine Clarity Urine pH Ur Specific [place] Urine Protein Urine Glucose (UA) Urine Ketones Urine Occult Blood Urine Nitrate Urine Bilirubin Urine Urobilinogen Ur Leukocyte Esterase Urine RBC Urine WBC Urine WBC Clumps Urine Bacteria Urine Mucus Micro UA Comment Ur Microscopic Review Urine Culture Comments Blood Type A Positive Antibody Screen Negative 01/13/18 13:36 WBC RBC Hgb Hct MCV MCH MCHC RDW Plt Count MPV Prelim Diff (Auto) WBC Differential Seg Neuts % (Manual) Band Neuts % (Manual) Lymphocytes % (Manual) Monocytes % (Manual) Eosinophils % (Manual) Basophils % (Manual) Metamyelocytes % (Man) Abs Neuts (Manual) Differential Comment Platelet Estimate Platelet Morphology PT INR APTT Sodium Potassium Chloride Carbon Dioxide Anion Gap BUN Creatinine Estimated GFR Random Glucose Lactic Acid Calcium Magnesium Total Bilirubin AST ALT Alkaline Phosphatase Ammonia Total Creatine Kinase Troponin I Total Protein Albumin Urine Color Ariane Urine Clarity Turbid H Urine pH 5.0 Ur Specific [place] 1.015 Urine Protein 100 H Urine Glucose (UA) Negative Urine Ketones Trace H Urine Occult Blood Large H Urine Nitrate Negative Urine Bilirubin Negative Urine Urobilinogen 4 or greater Ur Leukocyte Esterase Moderate H Urine RBC Urine WBC Urine WBC Clumps Many H Urine Bacteria Many H Urine Mucus Many H Micro UA Comment Cath-culture ind Ur Microscopic Review Not Reportable Urine Culture Comments Cath-cult indicated Blood Type Antibody Screen - Imaging Impressions Chest X-Ray 01/13/18 13:14 CONCLUSION: No acute cardiopulmonary process. There is chronic change described above. Head CT 01/13/18 13:14 CONCLUSION: 1. No acute abnormality is seen. 2. Chronic cerebral atrophy. 3. Areas of encephalomalacia in the left periventricular region extending to the posterior left basal ganglia. . Scrotum Ultrasound 01/13/18 13:17 CONCLUSION: 1. Bilateral inguinal hernias. 2. The testicles appear normal. 3. Bilateral mild hydroceles. Caprini VTE Risk Assessment Caprini VTE Risk Assessment: Moderate/High Risk (score >= 2) VTE Pharmacological Exception Reason: Thrombocytopenia (<50) Caprini Risk Assessment Model: Point Value = 1 Point Value = 2 Point Value = 3 Point Value = 5 Age 41-60 Minor surgery BMI > 25 kg/m2 Swollen legs Varicose veins or History of unexplained or recurrent spontaneous Oral contraceptives or hormone replacement Sepsis (< 1 month) Serious lung disease, including pneumonia (< 1 month) Abnormal pulmonary function Acute myocardial infarction Congestive heart failure (< 1 month) History of inflammatory bowel disease Medical patient at bed rest Age 61-74 Arthroscopic surgery Major open surgery (> 45 min) Laparoscopic surgery (> 45 min) Malignancy Confined to bed (> 72 hours) Immobilizing plaster cast Central venous access Age >= 75 History of VTE Family history of VTE Factor V Leiden Prothrombin [id number] Lupus anticoagulant Anticardiolipin antibodies Elevated serum homocysteine Heparin-induced thrombocytopenia Other congenital or acquired thrombophilia Stroke (< 1 month) Elective arthroplasty Hip, pelvis, or leg fracture Acute spinal cord injury (< 1 month) Prophylaxis Regimen: Total Risk Factor Score Risk Level Prophylaxis Regimen 0-1 Low Early ambulation 2 Moderate Order ONE of the following: *Sequential Compression Device (SCD) *Heparin 5000 units SQ BID 3-4 Higher Order ONE of the following medications: *Heparin 5000 units SQ TID *Enoxaparin/Lovenox 40 mg SQ daily (WT < 150 kg, CrCl > 30 mL/min) *Enoxaparin/Lovenox 30 mg SQ daily (WT < 150 kg, CrCl > 10-29 mL/min) *Enoxaparin/Lovenox 30 mg SQ BID (WT < 150 kg, CrCl > 30 mL/min) AND/OR *Sequential Compression Device (SCD) 5 or more Highest Order ONE of the following medications: *Heparin 5000 units SQ TID (Preferred with Epidurals) *Enoxaparin/Lovenox 40 mg SQ daily (WT < 150 kg, CrCl > 30 mL/min) *Enoxaparin/Lovenox 30 mg SQ daily (WT < 150 kg, CrCl > 10-29 mL/min) *Enoxaparin/Lovenox 30 mg SQ BID (WT < 150 kg, CrCl > 30 mL/min) AND *Sequential Compression Device (SCD) Assessment and Plan - Plan 77-year-old man with Neutropenic sepsis: WBC <4000, HR>90; source UTI. 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
--- NOTE | 2018-01-13 17:36 | CT ---
EXAM DATE: 01/13/2018 5:19 PM EST AGE/SEX: 77 years / Male INDICATIONS: Weight loss. Weakness. CLINICAL DATA: This is the patient's initial encounter. Patient reports that signs and symptoms have been present for 1 month and indicates a pain score of 0/10. MEDICAL/SURGICAL HISTORY: Leukemia. Hernia. None. RADIATION DOSE: 9.52 CTDI (mGy) COMPARISON: [facility] [place]/O [place], 07/30/2016. . TECHNIQUE: Multiple contiguous axial images were obtained through the abdomen. Images were obtained using multiple row detector helical technique. Using automated exposure control and adjustment of the mA and/or kV according to patient size, radiation dose was kept as low as reasonably achievable to o btain optimal diagnostic quality images. DICOM format image data is available electronically for rev iew and comparison. FINDINGS: Lung bases demonstrate minimal dependent atelectasis. Mild elevation left hemidiaphragm. No acute findings in the liver, spleen, adrenals, kidneys or pancreas. There is no free fluid. No bowel obstruction. No adenopathy. There is a large right-sided bowel conta ining inguinal hernia without evidence for incarceration or obstruction. Hernia was present on prior CT from 2017. There is severe rectal constipation with rectum distended to almost 10 cm. Mild compression deformities of T12 and L1 which appear to be old. Previous screw fixation of proxima l right femur. CONCLUSION: 1. No acute findings within the abdomen and pelvis. Severe rectal constipation with distention to al most 10 cm. 2. Very large right-sided inguinal hernia containing bowel but without evidence for obstruction. 3. Mild compression deformities at the thoracolumbar junction which appear old. Electronically signed by: Jonathan Zuniga MD 01/13/2018 5:35 PM EST
[2018-01-13] MEDS: Lactobacillus Acidophilus/L. Spores Tablet PO SCH (18:41)
[2018-01-13] MEDS ORDERED: Filgrastim Inj 300 MCG/ML Vial SQ ONE (18:56)
--- NOTE | 2018-01-13 20:47 | MB ---
cc: Luis Vivar MD DATE: 01/13/2018 REQUESTING PHYSICIAN: Anthony Lui MD REASON FOR CONSULTATION: Pancytopenia and neutropenia. HISTORY OF PRESENT ILLNESS: A 77-year-old unfortunate gentleman with history of cerebral palsy and a resident of a [facility], was brought in when he was noted to have failure to thrive, decreased appetite, generalized weakness and has not been eating well, according to him and according to the admitting records. He was also defecating on himself while at the nursing facility. The patient was brought in and was found to have pancytopenia with granulocytes of 300 and hematology consultation was requested as he was reportedly diagnosed with LGL, but no documentation of that is available at this time. In addition, the patient and his daughter over at the bedside have never heard of this diagnosis according to them and has never been seen by group exercise manager and/or treated by any specialist for this problem. He also did not have bone marrow biopsy. It is unclear to me how the diagnosis of LGL was made plus I do not have a flow cytometry results on him at this time. Currently, he is quite weak and fatigued and complains that he has not eaten anything since he came to the emergency room. Other than that, he is relatively asymptomatic. REVIEW OF SYSTEMS: He denies any headaches, sore throat or dysphagia. No cough, chest pain or shortness of breath. No abdominal pain, distention, nausea or vomiting. He was noted to have black stools, which was positive for occult blood and was also noted to have urinary tract infection in the hospital. PAST MEDICAL HISTORY: As above. FAMILY HISTORY: Noncontributory. SOCIAL HISTORY: The patient is only 1 daughter who takes care of him in the nursing facility. Ex-smoker. Non-alcohol abuser. 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 MEDICATIONS: He is on 1. Tylenol. 2. Cefepime. 3. Lactinex 4. Lopressor. 5. Zofran. 6. Protonix. 7. Vancomycin 1 dose. PHYSICAL EXAMINATION: GENERAL: Elderly gentleman, chronically ill-appearing, appearing much older than stated age and appearing cachectic. Pleasantly confused. VITAL SIGNS: Stable. He is afebrile. Pallor present. No icterus. No palpable adenopathy in the neck or axilla. HEENT: With very poor oral dental hygiene. Partially edentulous. SKIN: Dry and wrinkled. Mucous membrane dry. NEUROLOGIC: Alert, oriented x2. Spastic hemiplegia noted. CARDIOVASCULAR: S1, S2, regular rate and rhythm. No murmurs or gallops. LUNGS: Clear, without crackles or wheeze. ABDOMEN: Scaphoid, soft and nontender without palpable splenomegaly. EXTREMITIES: Revealed right upper and lower extremity with no evidence of DVTs. LABORATORY DATA: Significant for white count of 1.2, hemoglobin 9.7, hematocrit 29.6, MCV 90.1, platelets 125,000 with ANC of 300 and lymphocytes of 47%. PT/INR is 1.0, PTT is 26.2. Chemistry is significant for BUN of 45, creatinine 1.05, GFR 68 and normal liver enzymes, except albumin of 2.3. Chest x-ray from this morning was negative except for chronic changes of pain. Biapical pleural and parenchymal thickening. Head CT was negative. Ultrasound of the scrotum showed bilateral inguinal hernias and normal-appearing testicles, bilateral mild hydroceles. Blood cultures pending. Urine culture pending. ASSESSMENT AND PLAN: A 77-year-old gentleman with cerebral palsy, resident of a nursing facility, admitted with failure to thrive. 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 He is not a candidate for any aggressive therapy and diagnostic evaluation including bone marrow, etc. at this time. I will order Neupogen for increasing his white count to prevent sepsis and order a flow cytometry to see if he has a diagnosis compatible with what was reported as large granular lymphocytic leukemia and the patient's daughter was very surprised that he had a diagnosis of leukemia/lymphoma and I advised her that we will confirm that and we will let her know. I will see him in followup in the hospital. MD GARRISON Payne/duy , 07:08 PM , 07:21 PM
[2018-01-13] MEDS: Metoprolol Tartrate 25 MG Tablet PO SCH (21:01)
[2018-01-13 21:05] LABS: Hematocrit 25.8 % (39.0-51.0); Hemoglobin 8.4 gm/dL (13.0-17.0); Mean Corpuscular HGB Conc 32.4 % (32.0-36.0); Mean Corpuscular Hemoglobin 28.7 pg (27.0-34.0); Mean Corpuscular Volume 88.4 fL (80.0-100.0); Mean Platelet Volume 7.4 fL (7.0-11.0); Platelet Count 114 th/mm3 (150-450); Red Blood Count 2.92 mil/mm3 (4.50-5.90); Red Cell Distribution Width 16.3 % (11.6-17.2); White Blood Count 1.4 th/mm3 (4.0-11.0)
[2018-01-14 01:23] LABS: Eosinophils 5 % (0-4); Lymphocytes 51 % (9-44); Monocytes 21 % (0-8)
[2018-01-14 01:29] LABS: Platelet Morphology Normal (Normal)
[2018-01-14 01:30] LABS: Dohle Bodies Present; Toxic Granulation 1+
[2018-01-14] MEDS: Sod Chloride 0.9% Inj 1,000 ML IV.CONT SCH ×3 (04:42→21:25)
[2018-01-14 06:11] LABS: Eos % (Auto) 2.6 % (0.0-4.0); Hematocrit 27.4 % (39.0-51.0); Hemoglobin 8.8 gm/dL (13.0-17.0); Lymph # (Auto) 0.4 th/mm3 (1.0-4.8); Lymph % (Auto) 25.1 % (9.0-44.0); Mean Corpuscular HGB Conc 32.1 % (32.0-36.0); Mean Corpuscular Hemoglobin 28.9 pg (27.0-34.0); Mean Corpuscular Volume 89.9 fL (80.0-100.0); Mean Platelet Volume 7.6 fL (7.0-11.0); Mono # (Auto) 0.4 th/mm3 (0.0-0.9); Mono % (Auto) 25.4 % (0.0-8.0); Neut # (Auto) 0.8 th/mm3 (1.8-7.7); Neut % (Auto) 45.9 % (16.0-70.0); Platelet Count 108 th/mm3 (150-450); Red Blood Count 3.05 mil/mm3 (4.50-5.90); Red Cell Distribution Width 16.6 % (11.6-17.2); White Blood Count 1.7 th/mm3 (4.0-11.0)
[2018-01-14 06:37] LABS: Alanine Aminotransferase 9 U/L (12-78); Anion Gap 9 meq/L (5-15); Aspartate Aminotransferase 19 U/L (15-37); Blood Urea Nitrogen 40 mg/dL (7-18); Calcium 8.3 mg/dL (8.5-10.1); Carbon Dioxide 22.7 meq/L (21.0-32.0); Chloride 105 meq/L (98-107); Glomerular Filtration Rate 84 mL/min (>89); Glucose,Random 77 mg/dL (74-106); Potassium 3.9 meq/L (3.5-5.1); Sodium 137 meq/L (136-145)
[2018-01-14 06:39] LABS: Alkaline Phosphatase 64 U/L (45-117); Total Protein 6.3 g/dL (6.4-8.2)
--- NOTE | 2018-01-14 08:58 | P.PN ---
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 Patient is a resident at local nursing facility. Apparently over the past several days patient has had decreased appetite and has been defecating on himself. He was seen by a freight manager doctor today who suggested patient be sent to the ED for evaluation. Patient is alert and oriented x3 during my exam and report appropriately to all my questions. Abnormal lab include severe pancytopenia, neutropenia and abnormal UA. Patient had a normal head CT. 01/14: Seen in his bedroom, stable asked for Nutrition evaluation, the patient has Cachexia, continue antibiotics for UTI, No nausea, vomit or diarrhea, discussed with nurse Miss Cruz. Physical Exam Vital signs: Vital Signs 01/13/18 13:15 01/13/18 13:17 01/13/18 15:20 Temperature 97.8 F Pulse Rate 99 H 95 H Respiratory Rate 20 18 Blood Pressure 117/64 105/57 L Pulse Oximetry 100 99 100 01/13/18 18:28 01/13/18 20:00 01/14/18 00:00 Temperature 97.4 F L 97.9 F Pulse Rate 92 H 98 H 87 Respiratory Rate 18 18 18 Blood Pressure 107/62 122/58 L 107/55 L Pulse Oximetry 100 99 01/14/18 08:00 Temperature 98 F Pulse Rate 97 H Respiratory Rate 18 Blood Pressure 92/54 L Pulse Oximetry 98 Intake & Output 01/13/18 01/14/18 01/14/18 18:59 06:59 18:59 Intake Total 450 / 450 1580 / 1580 Output Total 325 / 325 Balance 450 / 450 1255 / 1255 Weight 45 kg 45 kg Intake: IV 450 / 450 1100 / 1100 NS Inj 1,000 ML @ 70 mls/hr IV. 1000 / 1000 CONT .[id number] [facility] Rx#:[id number] Maxipime Inj 2,000 MG In NS Inj 100 / 100 100 / 100 100 ML @ 200 mls/hr IV.SIG Q12H [facility] Rx#:[id number] Vancomycin Inj 1,000 MG In NS 250 / 250 Inj 250 ML @ 250 mls/hr IV.SIG ONCE ONE Rx#:[id number] Rocephin Inj 1,000 MG In NS Inj 100 / 100 100 ML @ 200 mls/hr IV.SIG ONCE ONE Rx#:[id number] Oral 480 / 480 Output: Urine 325 / 325 Other: Date of Last Bowel Movement 01/13/18 Weight On Admission 45 kg Narrative: GENERAL: NAD SKIN: Warm and dry. HEAD: Atraumatic. Normocephalic. EYES: Pupils equal and round. No scleral icterus. No injection or drainage. ENT: No nasal bleeding or discharge. Mucous membranes pink and moist. NECK: Trachea midline. No JVD. CARDIOVASCULAR: Regular rate and rhythm. RESPIRATORY: No accessory muscle use. Clear to auscultation. Breath sounds equal bilaterally. GASTROINTESTINAL: Abdomen soft, non-tender, nondistended. Hepatic and splenic margins not palpable. MUSCULOSKELETAL: Extremities without clubbing, cyanosis, or edema. deformity of both upper and lower right extremities NEUROLOGICAL: Awake and alert. Right sided Hemiparesis. PSYCHIATRIC: Appropriate mood and affect; insight and judgment normal. Results - Labs CBC & Chem 7: 01/14/18 05:09 01/14/18 05:09 Laboratory Results - last 24 hr 01/13/18 01/13/18 01/13/18 13:25 13:25 13:36 WBC RBC Hgb Hct MCV MCH MCHC RDW Plt Count MPV Prelim Diff (Auto) Neut % (Auto) Lymph % (Auto) Reagan % (Auto) Eos % (Auto) Baso % (Auto) Neut # (Auto) Lymph # (Auto) Reagan # (Auto) Eos # (Auto) Baso # (Auto) WBC Differential Seg Neuts % (Manual) Band Neuts % (Manual) Lymphocytes % (Manual) Monocytes % (Manual) Eosinophils % (Manual) Basophils % (Manual) Metamyelocytes % (Man) Abs Neuts (Manual) Differential Comment Toxic Granulation Dohle Bodies Platelet Estimate Platelet Morphology Basophilic Stippling PT 10.5 INR 1.0 APTT 26.2 Sodium Potassium Chloride Carbon Dioxide Anion Gap BUN Creatinine Estimated GFR Random Glucose Lactic Acid 1.5 Calcium Magnesium Total Bilirubin AST ALT Alkaline Phosphatase Ammonia 27 Total Creatine Kinase Troponin I Total Protein Albumin Urine Color Urine Clarity Urine pH Ur Specific [place] Urine Protein Urine Glucose (UA) Urine Ketones Urine Occult Blood Urine Nitrate Urine Bilirubin Urine Urobilinogen Ur Leukocyte Esterase Urine RBC Urine WBC Urine WBC Clumps Urine Bacteria Urine Mucus Micro UA Comment Ur Microscopic Review Urine Culture Comments Blood Type Antibody Screen 01/13/18 01/13/18 01/13/18 13:36 13:36 13:36 WBC 1.2 L RBC 3.29 L Hgb 9.7 L Hct 29.6 L MCV 90.1 MCH 29.6 MCHC 32.8 RDW 16.9 Plt Count 125 L MPV 7.4 Prelim Diff (Auto) Manual diff required Neut % (Auto) Lymph % (Auto) Reagan % (Auto) Eos % (Auto) Baso % (Auto) Neut # (Auto) Lymph # (Auto) Reagan # (Auto) Eos # (Auto) Baso # (Auto) WBC Differential Manual diff final Seg Neuts % (Manual) 17 Band Neuts % (Manual) 9 H Lymphocytes % (Manual) 47 H Monocytes % (Manual) 21 H Eosinophils % (Manual) 2 Basophils % (Manual) 2 Metamyelocytes % (Man) 2 H Abs Neuts (Manual) 0.3 L* Differential Comment . Toxic Granulation Dohle Bodies Platelet Estimate Low L Platelet Morphology Normal Basophilic Stippling PT INR APTT Sodium 139 Potassium 4.2 Chloride 105 Carbon Dioxide 25.1 Anion Gap 9 BUN 45 H Creatinine 1.05 Estimated GFR 68 L Random Glucose 86 Lactic Acid Calcium 8.5 Magnesium 2.4 Total Bilirubin 0.8 AST 17 ALT 13 Alkaline Phosphatase 73 Ammonia Total Creatine Kinase 18 L Troponin I Less than 0.02 L Total Protein 7.1 Albumin 2.3 L Urine Color Urine Clarity Urine pH Ur Specific [place] Urine Protein Urine Glucose (UA) Urine Ketones Urine Occult Blood Urine Nitrate Urine Bilirubin Urine Urobilinogen Ur Leukocyte Esterase Urine RBC Urine WBC Urine WBC Clumps Urine Bacteria Urine Mucus Micro UA Comment Ur Microscopic Review Urine Culture Comments Blood Type A Positive Antibody Screen Negative 01/13/18 01/13/18 01/14/18 13:36 20:38 05:09 WBC 1.4 L 1.7 L RBC 2.92 L 3.05 L Hgb 8.4 L 8.8 L Hct 25.8 L 27.4 L MCV 88.4 89.9 MCH 28.7 28.9 MCHC 32.4 32.1 RDW 16.3 16.6 Plt Count 114 L 108 L MPV 7.4 7.6 Prelim Diff (Auto) Manual diff required Slide review pending Neut % (Auto) 45.9 Lymph % (Auto) 25.1 Reagan % (Auto) 25.4 H Eos % (Auto) 2.6 Baso % (Auto) 1.0 Neut # (Auto) 0.8 L Lymph # (Auto) 0.4 L Reagan # (Auto) 0.4 Eos # (Auto) 0.0 Baso # (Auto) 0.0 WBC Differential Manual diff final Seg Neuts % (Manual) 15 L Band Neuts % (Manual) 8 H Lymphocytes % (Manual) 51 H Monocytes % (Manual) 21 H Eosinophils % (Manual) 5 H Basophils % (Manual) Metamyelocytes % (Man) Abs Neuts (Manual) 0.3 L* Differential Comment . . Toxic Granulation 1+ H Dohle Bodies Present H Platelet Estimate Low L Platelet Morphology Normal Basophilic Stippling Faint H PT INR APTT Sodium Potassium Chloride Carbon Dioxide Anion Gap BUN Creatinine Estimated GFR Random Glucose Lactic Acid Calcium Magnesium Total Bilirubin AST ALT Alkaline Phosphatase Ammonia Total Creatine Kinase Troponin I Total Protein Albumin Urine Color Ariane Urine Clarity Turbid H Urine pH 5.0 Ur Specific [place] 1.015 Urine Protein 100 H Urine Glucose (UA) Negative Urine Ketones Trace H Urine Occult Blood Large H Urine Nitrate Negative Urine Bilirubin Negative Urine Urobilinogen 4 or greater Ur Leukocyte Esterase Moderate H Urine RBC Urine WBC Urine WBC Clumps Many H Urine Bacteria Many H Urine Mucus Many H Micro UA Comment Cath-culture ind Ur Microscopic Review Not Reportable Urine Culture Comments Cath-cult indicated Blood Type Antibody Screen 01/14/18 05:09 WBC RBC Hgb Hct MCV MCH MCHC RDW Plt Count MPV Prelim Diff (Auto) Neut % (Auto) Lymph % (Auto) Reagan % (Auto) Eos % (Auto) Baso % (Auto) Neut # (Auto) Lymph # (Auto) Reagan # (Auto) Eos # (Auto) Baso # (Auto) WBC Differential Seg Neuts % (Manual) Band Neuts % (Manual) Lymphocytes % (Manual) Monocytes % (Manual) Eosinophils % (Manual) Basophils % (Manual) Metamyelocytes % (Man) Abs Neuts (Manual) Differential Comment Toxic Granulation Dohle Bodies Platelet Estimate Platelet Morphology Basophilic Stippling PT INR APTT Sodium 137 Potassium 3.9 Chloride 105 Carbon Dioxide 22.7 Anion Gap 9 BUN 40 H Creatinine 0.88 Estimated GFR 84 L Random Glucose 77 Lactic Acid Calcium 8.3 L Magnesium Total Bilirubin 0.9 AST 19 ALT 9 L Alkaline Phosphatase 64 Ammonia Total Creatine Kinase Troponin I Total Protein 6.3 L D Albumin 2.0 L Urine Color Urine Clarity Urine pH Ur Specific [place] Urine Protein Urine Glucose (UA) Urine Ketones Urine Occult Blood Urine Nitrate Urine Bilirubin Urine Urobilinogen Ur Leukocyte Esterase Urine RBC Urine WBC Urine WBC Clumps Urine Bacteria Urine Mucus Micro UA Comment Ur Microscopic Review Urine Culture Comments Blood Type Antibody Screen - Imaging Impressions Abdomen/Pelvis CT 01/13/18 00:00 CONCLUSION: 1. No acute findings within the abdomen and pelvis. Severe rectal constipation with distention to almost 10 cm. 2. Very large right-sided inguinal hernia containing bowel but without evidence for obstruction. 3. Mild compression deformities at the thoracolumbar junction which appear old. Chest X-Ray 01/13/18 13:14 CONCLUSION: No acute cardiopulmonary process. There is chronic change described above. Head CT 01/13/18 13:14 CONCLUSION: 1. No acute abnormality is seen. 2. Chronic cerebral atrophy. 3. Areas of encephalomalacia in the left periventricular region extending to the posterior left basal ganglia. . Scrotum Ultrasound 01/13/18 13:17 CONCLUSION: 1. Bilateral inguinal hernias. 2. The testicles appear normal. 3. Bilateral mild hydroceles. - Procedures None Assessment and Plan - Plan 77-year-old man with Neutropenic sepsis: WBC <4000, HR>90; source UTI. Normal lactic acid Status post cefepime and vancomycin in ED, continue antibiotics pending culture report UTI Continue with above antibiotics including cefepime and vancomycin pending culture report Neutropenia Patient with a history of LGL leukemia Awaiting for Oncology evaluation. Check CT abdomen/pelvics and consider CT chest Neutropenic precaution History of pancytopenia Heme-Onc consultation pending Head CT negative CT abdomen/pelvis pending and consider Chest CT Monitor CBC History of large T-cell leukemia Oncology consultation pending Enlarged scrotum Testicular ultrasound noted and reviewed with finding of bilateral inguinal hernia Failure to thrive Speech therapist consult for swallow eval Dietitian substance abuse counselor Start gentle IV fluid hydration PT consult to treat and eval History of cerebral palsy History of congenital right lower extremity and right upper extremity deformity PT to treat and eval OT consultation Hypertension Resume oral antihypertensive medication with holding parameter DVT prophylaxis: Chemical anti-prophylaxis is contraindicated, bilateral SCDs Code Status: Full code. Discussed Condition With: Patient and Nurse Miss Cruz. Discharge Planning: Once cleared by paralegal specialist.
[2018-01-14 09:30] LABS: Eosinophils 1 % (0-4); Lymphocytes 25 % (9-44); Metamyelocytes 1 % (0-1); Monocytes 18 % (0-8)
[2018-01-14] MEDS: Vancomycin Inj 1,000 MG in Sodium Chlor 0.9% Inj 250 ML IV.SIG SCH (09:30)
[2018-01-14] MEDS: Lactobacillus Acidophilus/L. Spores Tablet PO SCH ×3 (09:30→17:37)
[2018-01-14 09:31] LABS: Toxic Granulation 2+; Toxic Vacuolation Present
[2018-01-14 09:32] LABS: Platelet Morphology Normal (Normal)
[2018-01-14] MEDS: Metoprolol Tartrate 25 MG Tablet PO SCH ×3 (09:32→21:32)
--- NOTE | 2018-01-14 13:59 | P.CONID ---
History of Present Illness Service: Infectious Disease Consult date: 01/14/18 Requesting Physician: Anthony Lui Reason for Consult: Evaluation and Mment of Neutropenic sepsis Chief Complaint: Failure to thrive, generalized weakness History of Present Illness: Mr. Avalos is a 77-year-old male with past medical history significant for LGL leukemia seen by Dr. Montoya in the past. Patient had a bone marrow biopsy in the past which confirmed this diagnosis. It was determined at that time the patient did not require treatment for the same. Pancytopenia has been chronic and unsure if he has been followed up as outpatient with hematology at this point. 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 For the last several years patient has been having generalized weakness and due to inability to take care of himself independently he was placed in an assisted living facility. Patient has a cousin who lives locally and checks on him. Patient also has a daughter who visits him off and on but does not seem to be very involved in the care of the patient. With this background patient was brought into the emergency room for evaluation of failure to thrive, decreased appetite and generalized weakness. Patient was also apparently defecating on himself because he was unable to get out of bed. He was seen by counselors who suggested patient be sent to the emergency department for evaluation. Due to severe pancytopenia, neutropenia patient was admitted to rule out sepsis. Due to abnormal behavior of defecating on himself a CT of the head was done which was normal. Infectious diseases consulted for evaluation and management of possible neutropenic sepsis. Review of Systems All other systems reviewed negative except as stated in HPI, other (Poor historian) PMFSH - History History Provided By: Patient - Medical History Medical History: Medical History (Last Reviewed 01/14/18 @ 08:07 by Arturo Parra) Diarrhea Hernia of abdominal wall Nausea - Family History Family History: Family History (Last Reviewed 01/14/18 @ 08:20 by Shama Oliveira) Other Cancer - Tobacco History Smoking Status: Former smoker Tobacco Type: Cigarettes - Alcohol History How Often Do You Have a Drink Containing Alcohol: Never - Substance Use History Substance History: No History of Abuse - Immunization History Tetanus Immunization: Unsure Hx Influenza Vaccine This Season: No Medications and Allergies Active Medications: Active Medications Acetaminophen (Tylenol) 650 mg PO Q4H PRN PRN Reason: Temp > 100.4 Al Hydroxide/Mg Hydroxide (Milk Of Mel Alvarez) 30 ml PO Q12H PRN PRN Reason: Mild Constipation Cefepime HCl 2,000 mg/ Sodium (Chloride) 100 mls @ 200 mls/hr IV.SIG Q12H [facility] [place] Last Infusion: 01/14/18 05:19 Dose: Infused Sodium Chloride (Ns Inj) 1,000 mls @ 70 mls/hr IV.CONT .[id number] [facility] [place] Last Admin: 01/14/18 04:42 Dose: 70 mls/hr Vancomycin HCl 1,000 mg/ (Sodium Chloride) 250 mls @ 250 mls/hr IV.SIG Q24H [facility] [place] Last Infusion: 01/14/18 11:32 Dose: Infused Lactobacillus Acidophilus (Lactinex) 1 tab PO TID [facility] [place] Last Admin: 01/14/18 12:51 Dose: 1 tab Metoprolol Tartrate (Lopressor) 25 mg PO BID [facility] [place] Last Admin: 01/14/18 09:32 Dose: Not Given Ondansetron HCl (Zofran Inj) 4 mg IV.PUSH Q6H PRN PRN Reason: NAUSEA OR VOMITING Sodium Chloride (Ns Flush) 2 ml IV.FLUSH PRN PRN PRN Reason: FLUSH AFTER USING IV ACCESS Allergies Allergy/AdvReac Type Severity Reaction Status Date / Time penicillin G Allergy Unknown Hives Verified 01/13/18 13:16 Home Medications Medication Instructions Recorded Confirmed Type Lactobacillus acidoph-pectin 2 tab PO DAILY 01/13/18 01/13/18 History [Acidophilus-Pectin] diphenoxylate-atropine 2 tab PO Q6-8H PRN 01/13/18 01/13/18 History hydroxyzine HCl 25 mg PO TID-QID 01/13/18 01/13/18 History metoprolol tartrate 25 mg PO BID 01/13/18 01/13/18 History Exam Vital signs: Vital Signs 01/13/18 15:20 01/13/18 18:28 01/13/18 20:00 Temperature 97.4 F L Pulse Rate 95 H 92 H 98 H Respiratory Rate 18 18 Blood Pressure 105/57 L 107/62 122/58 L Pulse Oximetry 100 100 01/14/18 00:00 01/14/18 08:00 01/14/18 12:00 Temperature 97.9 F 98 F Pulse Rate 87 97 H 100 H Respiratory Rate 18 18 20 Blood Pressure 107/55 L 92/54 L 100/51 L Pulse Oximetry 99 98 Intake & Output 01/13/18 01/14/18 01/14/18 18:59 06:59 18:59 Intake Total 450 / 450 1580 / 1580 250 / 250 Output Total 325 / 325 Balance 450 / 450 1255 / 1255 250 / 250 Weight 45 kg 45 kg Intake: IV 450 / 450 1100 / 1100 250 / 250 NS Inj 1,000 ML @ 70 mls/hr IV. 1000 / 1000 CONT .[id number] [facility] [place] Rx#:[id number] Maxipime Inj 2,000 MG In NS Inj 100 / 100 100 / 100 100 ML @ 200 mls/hr IV.SIG Q12H [facility] [place] Rx#:[id number] Vancomycin Inj 1,000 MG In NS 250 / 250 250 / 250 Inj 250 ML @ 250 mls/hr IV.SIG Q24H [facility] [place] Rx#:[id number] Rocephin Inj 1,000 MG In NS Inj 100 / 100 100 ML @ 200 mls/hr IV.SIG ONCE ONE Rx#:[id number] Oral 480 / 480 Output: Urine 325 / 325 Other: Date of Last Bowel Movement 01/13/18 Weight On Admission 45 kg Narrative: GENERAL: Poorly nourished, thin built, not in acute distress SKIN: Cool and dry, no generalized rash HEAD: Atraumatic. Normocephalic. No temporal or scalp tenderness. EYES: Pupils equal round and reactive. Scleral icterus. No injection or drainage. No petechia ENT: Nothing abnormal detected NECK: Trachea midline. Supple, nontender, no meningeal signs. CARDIOVASCULAR: HS audible. RESPIRATORY: Clear to auscultation bilaterally. GASTROINTESTINAL: Abdomen soft nontender. MUSCULOSKELETAL: Right upper extremity with bony deformities and atrophy of the muscles. NEUROLOGICAL: Alert oriented 3. Nonfocal. Psych cooperative IV line sites ok. Results - Labs CBC & Chem 7: 01/14/18 05:09 01/14/18 05:09 Labs: Laboratory Results - last 24 hr 01/13/18 01/13/18 01/13/18 13:25 13:25 13:36 WBC RBC Hgb Hct MCV MCH MCHC RDW Plt Count MPV Prelim Diff (Auto) Neut % (Auto) Lymph % (Auto) Brooks % (Auto) Eos % (Auto) Baso % (Auto) Neut # (Auto) Lymph # (Auto) Brooks # (Auto) Eos # (Auto) Baso # (Auto) WBC Differential Seg Neuts % (Manual) Band Neuts % (Manual) Lymphocytes % (Manual) Monocytes % (Manual) Eosinophils % (Manual) Basophils % (Manual) Metamyelocytes % (Man) Abs Neuts (Manual) Differential Comment Toxic Granulation Toxic Vacuolation Dohle Bodies Platelet Estimate Platelet Morphology Basophilic Stippling PT 10.5 INR 1.0 APTT 26.2 Sodium Potassium Chloride Carbon Dioxide Anion Gap BUN Creatinine Estimated GFR Random Glucose Lactic Acid 1.5 Calcium Magnesium Total Bilirubin AST ALT Alkaline Phosphatase Ammonia 27 Total Creatine Kinase Troponin I Total Protein Albumin Urine Color Urine Clarity Urine pH Ur Specific [place] Urine Protein Urine Glucose (UA) Urine Ketones Urine Occult Blood Urine Nitrate Urine Bilirubin Urine Urobilinogen Ur Leukocyte Esterase Urine RBC Urine WBC Urine WBC Clumps Urine Bacteria Urine Mucus Micro UA Comment Ur Microscopic Review Urine Culture Comments Blood Type Antibody Screen 01/13/18 01/13/18 01/13/18 13:36 13:36 13:36 WBC 1.2 L RBC 3.29 L Hgb 9.7 L Hct 29.6 L MCV 90.1 MCH 29.6 MCHC 32.8 RDW 16.9 Plt Count 125 L MPV 7.4 Prelim Diff (Auto) Manual diff required Neut % (Auto) Lymph % (Auto) Brooks % (Auto) Eos % (Auto) Baso % (Auto) Neut # (Auto) Lymph # (Auto) Brooks # (Auto) Eos # (Auto) Baso # (Auto) WBC Differential Manual diff final Seg Neuts % (Manual) 17 Band Neuts % (Manual) 9 H Lymphocytes % (Manual) 47 H Monocytes % (Manual) 21 H Eosinophils % (Manual) 2 Basophils % (Manual) 2 Metamyelocytes % (Man) 2 H Abs Neuts (Manual) 0.3 L* Differential Comment . Toxic Granulation Toxic Vacuolation Dohle Bodies Platelet Estimate Low L Platelet Morphology Normal Basophilic Stippling PT INR APTT Sodium 139 Potassium 4.2 Chloride 105 Carbon Dioxide 25.1 Anion Gap 9 BUN 45 H Creatinine 1.05 Estimated GFR 68 L Random Glucose 86 Lactic Acid Calcium 8.5 Magnesium 2.4 Total Bilirubin 0.8 AST 17 ALT 13 Alkaline Phosphatase 73 Ammonia Total Creatine Kinase 18 L Troponin I Less than 0.02 L Total Protein 7.1 Albumin 2.3 L Urine Color Urine Clarity Urine pH Ur Specific [place] Urine Protein Urine Glucose (UA) Urine Ketones Urine Occult Blood Urine Nitrate Urine Bilirubin Urine Urobilinogen Ur Leukocyte Esterase Urine RBC Urine WBC Urine WBC Clumps Urine Bacteria Urine Mucus Micro UA Comment Ur Microscopic Review Urine Culture Comments Blood Type A Positive Antibody Screen Negative 01/13/18 01/13/18 01/14/18 13:36 20:38 05:09 WBC 1.4 L 1.7 L RBC 2.92 L 3.05 L Hgb 8.4 L 8.8 L Hct 25.8 L 27.4 L MCV 88.4 89.9 MCH 28.7 28.9 MCHC 32.4 32.1 RDW 16.3 16.6 Plt Count 114 L 108 L MPV 7.4 7.6 Prelim Diff (Auto) Manual diff required Slide review pending Neut % (Auto) 45.9 Lymph % (Auto) 25.1 Brooks % (Auto) 25.4 H Eos % (Auto) 2.6 Baso % (Auto) 1.0 Neut # (Auto) 0.8 L Lymph # (Auto) 0.4 L Brooks # (Auto) 0.4 Eos # (Auto) 0.0 Baso # (Auto) 0.0 WBC Differential Manual diff final Manual diff final Seg Neuts % (Manual) 15 L 21 Band Neuts % (Manual) 8 H 34 H Lymphocytes % (Manual) 51 H 25 Monocytes % (Manual) 21 H 18 H Eosinophils % (Manual) 5 H 1 Basophils % (Manual) Metamyelocytes % (Man) 1 Abs Neuts (Manual) 0.3 L* 1.0 L Differential Comment . . Toxic Granulation 1+ H 2+ H Toxic Vacuolation Present H Dohle Bodies Present H Platelet Estimate Low L Low L Platelet Morphology Normal Normal Basophilic Stippling Faint H PT INR APTT Sodium Potassium Chloride Carbon Dioxide Anion Gap BUN Creatinine Estimated GFR Random Glucose Lactic Acid Calcium Magnesium Total Bilirubin AST ALT Alkaline Phosphatase Ammonia Total Creatine Kinase Troponin I Total Protein Albumin Urine Color Ariane Urine Clarity Turbid H Urine pH 5.0 Ur Specific [place] 1.015 Urine Protein 100 H Urine Glucose (UA) Negative Urine Ketones Trace H Urine Occult Blood Large H Urine Nitrate Negative Urine Bilirubin Negative Urine Urobilinogen 4 or greater Ur Leukocyte Esterase Moderate H Urine RBC Urine WBC Urine WBC Clumps Many H Urine Bacteria Many H Urine Mucus Many H Micro UA Comment Cath-culture ind Ur Microscopic Review Not Reportable Urine Culture Comments Cath-cult indicated Blood Type Antibody Screen 01/14/18 05:09 WBC RBC Hgb Hct MCV MCH MCHC RDW Plt Count MPV Prelim Diff (Auto) Neut % (Auto) Lymph % (Auto) Brooks % (Auto) Eos % (Auto) Baso % (Auto) Neut # (Auto) Lymph # (Auto) Brooks # (Auto) Eos # (Auto) Baso # (Auto) WBC Differential Seg Neuts % (Manual) Band Neuts % (Manual) Lymphocytes % (Manual) Monocytes % (Manual) Eosinophils % (Manual) Basophils % (Manual) Metamyelocytes % (Man) Abs Neuts (Manual) Differential Comment Toxic Granulation Toxic Vacuolation Dohle Bodies Platelet Estimate Platelet Morphology Basophilic Stippling PT INR APTT Sodium 137 Potassium 3.9 Chloride 105 Carbon Dioxide 22.7 Anion Gap 9 BUN 40 H Creatinine 0.88 Estimated GFR 84 L Random Glucose 77 Lactic Acid Calcium 8.3 L Magnesium Total Bilirubin 0.9 AST 19 ALT 9 L Alkaline Phosphatase 64 Ammonia Total Creatine Kinase Troponin I Total Protein 6.3 L D Albumin 2.0 L Urine Color Urine Clarity Urine pH Ur Specific [place] Urine Protein Urine Glucose (UA) Urine Ketones Urine Occult Blood Urine Nitrate Urine Bilirubin Urine Urobilinogen Ur Leukocyte Esterase Urine RBC Urine WBC Urine WBC Clumps Urine Bacteria Urine Mucus Micro UA Comment Ur Microscopic Review Urine Culture Comments Blood Type Antibody Screen - Imaging Impressions Abdomen/Pelvis CT 01/13/18 00:00 CONCLUSION: 1. No acute findings within the abdomen and pelvis. Severe rectal constipation with distention to almost 10 cm. 2. Very large right-sided inguinal hernia containing bowel but without evidence for obstruction. 3. Mild compression deformities at the thoracolumbar junction which appear old. Head CT 01/13/18 13:14 CONCLUSION: 1. No acute abnormality is seen. 2. Chronic cerebral atrophy. 3. Areas of encephalomalacia in the left periventricular region extending to the posterior left basal ganglia. . Scrotum Ultrasound 01/13/18 13:17 CONCLUSION: 1. Bilateral inguinal hernias. 2. The testicles appear normal. 3. Bilateral mild hydroceles. Assessment and Plan - Plan Neutropenic rule out sepsis Failure to thrive Hypotension: infection vs prerenal Leukemia not candidate for treatment Recs Continue Antibiotics. Recommend GI consult for severe constipation and rectal distention Recommend palliative care consult dw .
--- NOTE | 2018-01-14 14:55 | P.PNONC ---
Subjective Interval history: Afebrile. Patient awake, lying in bed, no acute distress. He is a poor historian and cannot contribute to his medical history. Review of medical record at this facility does show a history of T-cell LGL leukemia associated with RA, which at that time did not require any treatment. 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 Objective Vital Signs/Intake & Output: Vital Signs 01/13/18 15:20 01/13/18 18:28 01/13/18 20:00 Temperature 97.4 F L Pulse Rate 95 H 92 H 98 H Respiratory Rate 18 18 18 Blood Pressure 105/57 L 107/62 122/58 L Pulse Oximetry 100 100 01/14/18 00:00 01/14/18 08:00 01/14/18 12:00 Temperature 97.9 F 98 F Pulse Rate 87 97 H 100 H Respiratory Rate 18 18 20 Blood Pressure 107/55 L 92/54 L 100/51 L Pulse Oximetry 99 98 Intake & Output 01/13/18 01/14/18 01/14/18 18:59 06:59 18:59 Intake Total 450 / 450 1580 / 1580 250 / 250 Output Total 325 / 325 Balance 450 / 450 1255 / 1255 250 / 250 Weight 45 kg 45 kg Intake: IV 450 / 450 1100 / 1100 250 / 250 NS Inj 1,000 ML @ 70 mls/hr IV. 1000 / 1000 CONT .[id number] [facility] Rx#:[id number] Maxipime Inj 2,000 MG In NS Inj 100 / 100 100 / 100 100 ML @ 200 mls/hr IV.SIG Q12H [facility] Rx#:[id number] Vancomycin Inj 1,000 MG In NS 250 / 250 250 / 250 Inj 250 ML @ 250 mls/hr IV.SIG Q24H [facility] Rx#:[id number] Rocephin Inj 1,000 MG In NS Inj 100 / 100 100 ML @ 200 mls/hr IV.SIG ONCE ONE Rx#:[id number] Oral 480 / 480 Output: Urine 325 / 325 Other: Date of Last Bowel Movement 01/13/18 Weight On Admission 45 kg Result Diagrams: 01/14/18 05:09 01/14/18 05:09 Laboratory Results: Laboratory Results - last 24 hr 01/13/18 01/14/18 01/14/18 20:38 05:09 05:09 WBC 1.4 L 1.7 L RBC 2.92 L 3.05 L Hgb 8.4 L 8.8 L Hct 25.8 L 27.4 L MCV 88.4 89.9 MCH 28.7 28.9 MCHC 32.4 32.1 RDW 16.3 16.6 Plt Count 114 L 108 L MPV 7.4 7.6 Prelim Diff (Auto) Manual diff required Slide review pending Neut % (Auto) 45.9 Lymph % (Auto) 25.1 Hardin % (Auto) 25.4 H Eos % (Auto) 2.6 Baso % (Auto) 1.0 Neut # (Auto) 0.8 L Lymph # (Auto) 0.4 L Hardin # (Auto) 0.4 Eos # (Auto) 0.0 Baso # (Auto) 0.0 WBC Differential Manual diff final Manual diff final Seg Neuts % (Manual) 15 L 21 Band Neuts % (Manual) 8 H 34 H Lymphocytes % (Manual) 51 H 25 Monocytes % (Manual) 21 H 18 H Eosinophils % (Manual) 5 H 1 Metamyelocytes % (Man) 1 Abs Neuts (Manual) 0.3 L* 1.0 L Differential Comment . . Toxic Granulation 1+ H 2+ H Toxic Vacuolation Present H Dohle Bodies Present H Platelet Estimate Low L Low L Platelet Morphology Normal Normal Basophilic Stippling Faint H Sodium 137 Potassium 3.9 Chloride 105 Carbon Dioxide 22.7 Anion Gap 9 BUN 40 H Creatinine 0.88 Estimated GFR 84 L Random Glucose 77 Calcium 8.3 L Total Bilirubin 0.9 AST 19 ALT 9 L Alkaline Phosphatase 64 Total Protein 6.3 L D Albumin 2.0 L Culture Results: Microbiology 01/13/18 13:36 Urine Culture - Preliminary Catheterized Urine Immature growth - reincubate 01/13/18 13:36 Aerobic Blood Culture - Preliminary Blood - Peripheral No growth in 1 day Anaerobic Blood Culture - Preliminary No growth in 1 day Imaging Studies: Impressions Abdomen/Pelvis CT 01/13/18 00:00 CONCLUSION: 1. No acute findings within the abdomen and pelvis. Severe rectal constipation with distention to almost 10 cm. 2. Very large right-sided inguinal hernia containing bowel but without evidence for obstruction. 3. Mild compression deformities at the thoracolumbar junction which appear old. Head CT 01/13/18 13:14 CONCLUSION: 1. No acute abnormality is seen. 2. Chronic cerebral atrophy. 3. Areas of encephalomalacia in the left periventricular region extending to the posterior left basal ganglia. . Scrotum Ultrasound 01/13/18 13:17 CONCLUSION: 1. Bilateral inguinal hernias. 2. The testicles appear normal. 3. Bilateral mild hydroceles. Medications: Active Medications Generic Name Dose Route Start Last Admin Trade Name Freq PRN Reason Stop Dose Admin Cefepime HCl 2,000 mg/ Sodium 100 mls @ 200 mls/hr 01/14/18 04:00 01/14/18 05 :19 Chloride IV.SIG Infused Q12H [facility] Infusion Sodium Chloride 1,000 mls @ 70 mls/hr 01/13/18 16:30 01/14/18 04:42 Ns Inj IV.CONT 70 mls/hr .[id number] [facility]OS[facility] Administration Vancomycin HCl 1,000 mg/ 250 mls @ 250 mls/hr 01/14/18 09:00 01/14/18 11:32 Sodium Chloride IV.SIG Infused Q24H [facility] Infusion Lactobacillus Acidophilus 1 tab 01/13/18 18:00 01/14/18 12:51 Lactinex PO 1 tab TID JOS[facility] Administration Objective Remarks: GENERAL: Cachectic elderly appearing male patient, no acute distress. SKIN: Pale, warm and dry. HEAD: Normocephalic. EYES: No scleral icterus. No injection or drainage. NECK: Supple, trachea midline. CARDIOVASCULAR: Regular rate and rhythm without murmurs. RESPIRATORY: Breath sounds equal bilaterally. No accessory muscle use. GASTROINTESTINAL: Abdomen soft, non-tender, nondistended. EXTREMITIES: No cyanosis, or edema. MUSCULOSKELETAL: Adequate muscle tone. NEUROLOGICAL: No obvious focal deficit. Awake, alert. Poor historian. PSYCHIATRIC: Appropriate mood and affect. Assessment/Plan - Plan Mr. Deal is a 77-year-old gentleman with a history of cerebral palsy, who was currently admitted for pancytopenia and neutropenia. 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 Patient was seen on April 06, 2013 in regards to his LGL leukemia and at that time the T-cell LGL leukemia was on observation and he was on methotrexate for his rheumatoid arthritis. He was to continue observation every 3 months. I am unable to verify if he was lost to follow-up at this time. Plan: 1. Neutropenia, status post Neupogen injection yesterday. Will continue times 3 days. 2. LGL leukemia, patient is not a candidate for any aggressive therapy, therefore a repeat bone marrow biopsy is not warranted at this time. Flow cytometry is pending. 3. Antibiotics per infectious disease. 4. Continue supportive care. - Attending Statement Pt seen in morning rounds. Asymptomatic. Looks better. White count seems to be improving. Will obtain records of his prior hematologic eval, continue neupogen and supportive care for now and see him in follow up in the hospital. Case d/w BRIGID.
--- NOTE | 2018-01-14 16:25 | P.CONGI ---
History of Present Illness Consult date: 01/14/18 Consult reason: Obstipation Chief complaint: uti,neutropenia, failure to thrive, gi bleed History of Present Illness: Mr. 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 Patient is a poor historian and able to contribute very little to history of present illness. According to documentation. Patient was brought into the emergency room at [facility] for evaluation of failure to thrive, decreased appetite and generalized weakness. Patient is currently a resident at a local rehab facility. Upon consultation, patient denies abdominal pain nausea or vomiting. Patient denies ever having had endoscopy procedures. Patient denies ever being told of any rectal bleeding. States that his appetite has been fair. It is unclear as to how much weight loss the patient has sustained. Our service has been consulted to evaluate patient for obstipation. Bedside nurse Nancy PIERCE reports no noted bowel movements since admission. CT abdomen and pelvis reveals severe rectal constipation with distention-10 cm. <Swati Hamm - Last Filed: 01/14/18 16:33> Review of Systems All other systems reviewed negative except as stated in HPI <Swati Hamm - Last Filed: 01/14/18 16:33> PMFSH - History History Provided By: Patient - Medical History Medical History: Medical History (Last Reviewed 01/14/18 @ 08:07 by Arturo Parra) Diarrhea Hernia of abdominal wall Nausea - Family History Family History: Family History (Last Reviewed 01/14/18 @ 08:20 by Shama Oliveira) Other Cancer - Tobacco History Smoking Status: Former smoker Tobacco Type: Cigarettes - Alcohol History How Often Do You Have a Drink Containing Alcohol: Never - Substance Use History Substance History: No History of Abuse - Immunization History Tetanus Immunization: Unsure Hx Influenza Vaccine This Season: No <Swati Hamm - Last Filed: 01/14/18 16:33> - Medical History Medical History: Medical History (Last Reviewed 01/14/18 @ 08:07 by Arturo Parra) Diarrhea Hernia of abdominal wall Nausea - Family History Family History: Family History (Last Reviewed 01/14/18 @ 08:20 by Shama Oliveira) Other Cancer <Palmira Conde - Last Filed: 01/14/18 19:58> Medications and Allergies Active Medications: Active Medications Acetaminophen (Tylenol) 650 mg PO Q4H PRN PRN Reason: Temp > 100.4 Al Hydroxide/Mg Hydroxide (Milk Of Magnesia Liq) 30 ml PO Q12H PRN PRN Reason: Mild Constipation Filgrastim (Neupogen Inj) 300 mcg SQ DAILY@1400 [facility] Stop: 01/15/18 14:01 Cefepime HCl 2,000 mg/ Sodium (Chloride) 100 mls @ 200 mls/hr IV.SIG Q12H [facility] Last Infusion: 01/14/18 05:19 Dose: Infused Sodium Chloride (Ns Inj) 1,000 mls @ 70 mls/hr IV.CONT .[id number] [facility] Last Admin: 01/14/18 04:42 Dose: 70 mls/hr Vancomycin HCl 1,000 mg/ (Sodium Chloride) 250 mls @ 250 mls/hr IV.SIG Q24H [facility] Last Infusion: 01/14/18 11:32 Dose: Infused Lactobacillus Acidophilus (Lactinex) 1 tab PO TID [facility] Last Admin: 01/14/18 12:51 Dose: 1 tab Metoprolol Tartrate (Lopressor) 12.5 mg PO BID [facility] Miscellaneous (Pill Splitter) 1 each OTHER UNSCH [facility] Ondansetron HCl (Zofran Inj) 4 mg IV.PUSH Q6H PRN PRN Reason: NAUSEA OR VOMITING Sodium Chloride (Ns Flush) 2 ml IV.FLUSH PRN PRN PRN Reason: FLUSH AFTER USING IV ACCESS <Swati Hamm - Last Filed: 01/14/18 16:33> Active Medications: Active Medications Acetaminophen (Tylenol) 650 mg PO Q4H PRN PRN Reason: Temp > 100.4 Al Hydroxide/Mg Hydroxide (Milk Of Magnesia Liq) 30 ml PO Q12H PRN PRN Reason: Mild Constipation Filgrastim (Neupogen Inj) 300 mcg SQ DAILY@1400 [facility] Stop: 01/15/18 14:01 Cefepime HCl 2,000 mg/ Sodium (Chloride) 100 mls @ 200 mls/hr IV.SIG Q12H [facility] Last Infusion: 01/14/18 18:13 Dose: Infused Sodium Chloride (Ns Inj) 1,000 mls @ 70 mls/hr IV.CONT .[id number] [facility] Last Admin: 01/14/18 06:35 Dose: Not Given Vancomycin HCl 1,000 mg/ (Sodium Chloride) 250 mls @ 250 mls/hr IV.SIG Q24H [facility] Last Infusion: 01/14/18 11:32 Dose: Infused Lactobacillus Acidophilus (Lactinex) 1 tab PO TID [facility] Last Admin: 01/14/18 17:37 Dose: 1 tab Metoprolol Tartrate (Lopressor) 12.5 mg PO BID [facility] Last Admin: 01/14/18 16:30 Dose: Not Given Miscellaneous (Pill Splitter) 1 each OTHER UNSCH [facility] Ondansetron HCl (Zofran Inj) 4 mg IV.PUSH Q6H PRN PRN Reason: NAUSEA OR VOMITING Sodium Chloride (Ns Flush) 2 ml IV.FLUSH PRN PRN PRN Reason: FLUSH AFTER USING IV ACCESS <HemaidjetAmmar - Last Filed: 01/14/18 19:58> Allergies Allergy/AdvReac Type Severity Reaction Status Date / Time penicillin G Allergy Unknown Hives Verified 01/13/18 13:16 Home Medications Medication Instructions Recorded Confirmed Type Lactobacillus acidoph-pectin 2 tab PO DAILY 01/13/18 01/13/18 History [Acidophilus-Pectin] diphenoxylate-atropine 2 tab PO Q6-8H PRN 01/13/18 01/13/18 History hydroxyzine HCl 25 mg PO TID-QID 01/13/18 01/13/18 History metoprolol tartrate 25 mg PO BID 01/13/18 01/13/18 History Exam Vital signs: Vital Signs 01/13/18 18:28 01/13/18 20:00 01/14/18 00:00 Temperature 97.4 F L 97.9 F Pulse Rate 92 H 98 H 87 Respiratory Rate 18 18 18 Blood Pressure 107/62 122/58 L 107/55 L Pulse Oximetry 100 99 01/14/18 08:00 01/14/18 12:00 Temperature 98 F Pulse Rate 97 H 100 H Respiratory Rate 18 20 Blood Pressure 92/54 L 100/51 L Pulse Oximetry 98 Intake & Output 01/13/18 01/14/18 01/14/18 18:59 06:59 18:59 Intake Total 450 / 450 1580 / 1580 250 / 250 Output Total 325 / 325 Balance 450 / 450 1255 / 1255 250 / 250 Weight 45 kg 45 kg Intake: IV 450 / 450 1100 / 1100 250 / 250 NS Inj 1,000 ML @ 70 mls/hr IV. 1000 / 1000 CONT .[id number] [facility] Rx#:[id number] Maxipime Inj 2,000 MG In NS Inj 100 / 100 100 / 100 100 ML @ 200 mls/hr IV.SIG Q12H [facility] Rx#:[id number] Vancomycin Inj 1,000 MG In NS 250 / 250 250 / 250 Inj 250 ML @ 250 mls/hr IV.SIG Q24H [facility] Rx#:[id number] Rocephin Inj 1,000 MG In NS Inj 100 / 100 100 ML @ 200 mls/hr IV.SIG ONCE ONE Rx#:[id number] Oral 480 / 480 Output: Urine 325 / 325 Other: Date of Last Bowel Movement 01/13/18 Weight On Admission 45 kg - Constitutional no acute distress - Routine HEENT Exam Head: Present: normocephalic - Routine Respiratory Exam Present: CTA bilaterally. Absent: accessory muscle use - Routine Cardiovascular Exam Present: S1, S2 - Routine Abdominal Exam Present: soft, normoactive bowel sounds. Absent: tenderness, distended, guarding, firm - Routine Extremities Exam Present: pulses intact. Absent: edema - Routine Skin Exam Present: dry, warm - Routine Neurological Exam Present: alert, altered mental status - Routine Psychiatric Exam Present: cooperative <HammSwati - Last Filed: 01/14/18 16:33> Vital signs: Vital Signs 01/13/18 20:00 01/14/18 00:00 01/14/18 08:00 Temperature 97.4 F L 97.9 F 98 F Pulse Rate 98 H 87 97 H Respiratory Rate 18 18 18 Blood Pressure 122/58 L 107/55 L 92/54 L Pulse Oximetry 100 99 98 01/14/18 12:00 01/14/18 16:00 Temperature 97.6 F Pulse Rate 100 H 103 H Respiratory Rate 20 19 Blood Pressure 100/51 L 93/54 L Pulse Oximetry 99 Intake & Output 01/14/18 01/14/18 01/15/18 06:59 18:59 06:59 Intake Total 1580 / 1580 800 / 800 Output Total 325 / 325 Balance 1255 / 1255 800 / 800 Weight 45 kg Intake: IV 1100 / 1100 350 / 350 NS Inj 1,000 ML @ 70 mls/hr IV. 1000 / 1000 CONT .[id number] [facility] Rx#:[id number] Maxipime Inj 2,000 MG In NS Inj 100 / 100 100 / 100 100 ML @ 200 mls/hr IV.SIG Q12H [facility] Rx#:[id number] Vancomycin Inj 1,000 MG In NS 250 / 250 Inj 250 ML @ 250 mls/hr IV.SIG Q24H [facility] Rx#:[id number] Oral 480 / 480 450 / 450 Output: Urine 325 / 325 Other: # Urine Diapers 4 Date of Last Bowel Movement 01/13/18 01/14/18 # Bowel Movements 3 <Hemaidjet,Ammar - Last Filed: 01/14/18 19:58> Results - Labs CBC & Chem 7: 01/14/18 05:09 01/14/18 05:09 Labs: Laboratory Results - last 24 hr 01/13/18 01/14/18 01/14/18 20:38 05:09 05:09 WBC 1.4 L 1.7 L RBC 2.92 L 3.05 L Hgb 8.4 L 8.8 L Hct 25.8 L 27.4 L MCV 88.4 89.9 MCH 28.7 28.9 MCHC 32.4 32.1 RDW 16.3 16.6 Plt Count 114 L 108 L MPV 7.4 7.6 Prelim Diff (Auto) Manual diff required Slide review pending Neut % (Auto) 45.9 Lymph % (Auto) 25.1 Scurry % (Auto) 25.4 H Eos % (Auto) 2.6 Baso % (Auto) 1.0 Neut # (Auto) 0.8 L Lymph # (Auto) 0.4 L [place]urry # (Auto) 0.4 Eos # (Auto) 0.0 Baso # (Auto) 0.0 WBC Differential Manual diff final Manual diff final Seg Neuts % (Manual) 15 L 21 Band Neuts % (Manual) 8 H 34 H Lymphocytes % (Manual) 51 H 25 Monocytes % (Manual) 21 H 18 H Eosinophils % (Manual) 5 H 1 Metamyelocytes % (Man) 1 Abs Neuts (Manual) 0.3 L* 1.0 L Differential Comment . . Toxic Granulation 1+ H 2+ H Toxic Vacuolation Present H Dohle Bodies Present H Platelet Estimate Low L Low L Platelet Morphology Normal Normal Basophilic Stippling Faint H Sodium 137 Potassium 3.9 Chloride 105 Carbon Dioxide 22.7 Anion Gap 9 BUN 40 H Creatinine 0.88 Estimated GFR 84 L Random Glucose 77 Calcium 8.3 L Total Bilirubin 0.9 AST 19 ALT 9 L Alkaline Phosphatase 64 Total Protein 6.3 L D Albumin 2.0 L - Imaging Impressions Abdomen/Pelvis CT 01/13/18 00:00 CONCLUSION: 1. No acute findings within the abdomen and pelvis. Severe rectal constipation with distention to almost 10 cm. 2. Very large right-sided inguinal hernia containing bowel but without evidence for obstruction. 3. Mild compression deformities at the thoracolumbar junction which appear old. <Swati Hamm - Last Filed: 01/14/18 16:33> - Labs CBC & Chem 7: 01/14/18 05:09 01/14/18 05:09 Labs: Laboratory Results - last 24 hr 01/13/18 01/14/18 01/14/18 20:38 05:09 05:09 WBC 1.4 L 1.7 L RBC 2.92 L 3.05 L Hgb 8.4 L 8.8 L Hct 25.8 L 27.4 L MCV 88.4 89.9 MCH 28.7 28.9 MCHC 32.4 32.1 RDW 16.3 16.6 Plt Count 114 L 108 L MPV 7.4 7.6 Prelim Diff (Auto) Manual diff required Slide review pending Neut % (Auto) 45.9 Lymph % (Auto) 25.1 Scurry % (Auto) 25.4 H Eos % (Auto) 2.6 Baso % (Auto) 1.0 Neut # (Auto) 0.8 L Lymph # (Auto) 0.4 L [place]urry # (Auto) 0.4 Eos # (Auto) 0.0 Baso # (Auto) 0.0 WBC Differential Manual diff final Manual diff final Seg Neuts % (Manual) 15 L 21 Band Neuts % (Manual) 8 H 34 H Lymphocytes % (Manual) 51 H 25 Monocytes % (Manual) 21 H 18 H Eosinophils % (Manual) 5 H 1 Metamyelocytes % (Man) 1 Abs Neuts (Manual) 0.3 L* 1.0 L Differential Comment . . Toxic Granulation 1+ H 2+ H Toxic Vacuolation Present H Dohle Bodies Present H Platelet Estimate Low L Low L Platelet Morphology Normal Normal Basophilic Stippling Faint H Sodium 137 Potassium 3.9 Chloride 105 Carbon Dioxide 22.7 Anion Gap 9 BUN 40 H Creatinine 0.88 Estimated GFR 84 L Random Glucose 77 Calcium 8.3 L Total Bilirubin 0.9 AST 19 ALT 9 L Alkaline Phosphatase 64 Total Protein 6.3 L D Albumin 2.0 L <Palmira Conde - Last Filed: 01/14/18 19:58> Assessment and Plan (1) Obstipation Status: Acute Code(s): K59.00 - Constipation, unspecified - Plan Mr. 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 Patient is a poor historian and able to contribute very little to history of present illness. According to documentation. Patient was brought into the emergency room at [facility] for evaluation of failure to thrive, decreased appetite and generalized weakness. Patient is currently a resident at a local rehab facility. Upon consultation, patient denies abdominal pain nausea or vomiting. Patient denies ever having had endoscopy procedures. Patient denies ever being told of any rectal bleeding. States that his appetite has been fair. It is unclear as to how much weight loss the patient has sustained. Our service has been consulted to evaluate patient for obstipation. Bedside nurse Nancy RN reports no noted bowel movements since admission. CT abdomen and pelvis reveals severe rectal constipation with distention-10 cm. Obstipation Patient unable to contribute to history of present illness. Bedside RN reports no noted bowel movement since patient's admission. 01/13/2018 CT abdomen and pelvis revealed the following findings: . No acute findings within the abdomen and pelvis. Severe rectal constipation with distention to almost 10 cm. Very large right-sided inguinal hernia containing bowel but without evidence for obstruction. Mild compression deformities at the thoracolumbar junction which appear old. Patient denies abdominal pain nausea or vomiting. Pancytopenia noted WBC 1.7 hemoglobin 8.8 hematocrit 27.4 platelet count 108 total bilirubin 0.9 AST 19 ALT 9 alk phos 64 01/13/2018 ammonia 27. Plan -Clear liquids -IV hydration -Continue Lactinex -Zofran as needed -Noted lactulose ordered and administered today -Monitor for stool output -Bowel regimen -2 soap suds enemas -Supportive care -Further recommendations to follow based on patient status This patient has been seen by myself and Dr. Conde and this note is written on his behalf - Attending Attestation Dr. Conde <Swati Hamm - Last Filed: 01/14/18 16:33> (1) Obstipation Status: Acute Code(s): K59.00 - Constipation, unspecified - Plan Patient was seen and examined, agree with above note, patient is not interested in any procedure, not a candidate for any procedure anyway and this is most likely possible constipation related, we will give patient bowel regimen and enema, monitor hemoglobin is anemia most likely related to his leukemia, we will follow-up as needed <Palmira Conde - Last Filed: 01/14/18 19:58>
--- NOTE | 2018-01-14 16:44 | P.PNPAL ---
Palliative care consulted to assist with goals of medical treatment and assistance with communication and symptom management. Spoke with patient's cousin, Polly Urbano. 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 Deal recently had stays in rehab after a fall. He was also supported in his [facility] apartment by home health care. Reports he was doing good but just recently went down hill. States Mr. Deal told her [facility] [place] wasn't showing up. Also states Mr. Deal was becoming more confused. Reports she visited him today and feels his cognition is much improved. Reportedly has a will, however in discussion with Polly this sounds more like a last will and testament rather than a living will. She does not believe he has ever done a health care surrogate or put in writing whom he would wish to make medical decisions on his behalf should he be unable to do so. In absence of written advance directives, health care proxy decision making would fall to his only daughter, Tena Sebastian. * possible phone numbers for daughter: [phone], Mr. Deal has an old living will/health care surrogate appointing the daughter scanned into a past record however, it is signed and witnessed by the daughter making it invalid. Palliative care full consultation to follow tomorrow, Sunday 01/14. Will assess patient's ability to make his own medical decisions and health care surrogate/ living will if desired and able. Palliative care will continue to follow throughout hospitalization.
--- NOTE | 2018-01-14 16:59 | P.CONGI ---
History of Present Illness Consult date: 01/14/18 Consult reason: Mr. Medina is a 77 year old male who comes to the ED for general weakness and decline in health by his nursing facility, but Patient states that he came to the ED because he did not want to get out of bed. He came in and labs were drawn revealing pancytopenia, neutropenia, anemia, with a Hgb of 9.7 and Hemoccult positive stool with diarrhea. CT scan was done revealing cerebral atrophy, bilateral hydroceles, and bilateral inguinal hernias and a 10 cm dilated rectum. GI was then consulted. Patient states that he occasionally has diarrhea but denies hematochezia or melena, he denies any nausea or vomiting, he denies abdominal pain. He denies dysphagia or odynophagia. Does state poor appetite and fatigue, but improving since being admitted. He states he has no dysuria or urinary incontinence or frequency. He passed two bowel movements today and has eaten a majority of his breakfast and dinner. He does ambulate with the use of assistance. He states he has never had a colonoscopy or EGD. ROS: Patient denies headaches or changes in vision, denies palpitations, denies SOB, denies cough, denies numbness or tingling in the extremities, denies paresthesias. Patient no energy, decrease in appetite, anhedonia, psychomotor retardation, but denies insomia/hypersomina, changes in concentration or suicidal ideation. PMH: Cerebral palsy, Abdominal Wall hernia, RA, LGL leukemia Medications: diphenxoylate, hydroxyzine, acidophilus, metoprolol tartate, methotrexate Allergies: penicillin(rash) Social Hx: former smoker PE: Mr. Cabello is a thin, pale man laying in bed. Vitals: BMI: 14.2, Ht 177.8 cm, HR: 100bpm, BP:100/51 HEENT: head reveals temporal wasting, deep set eyes, eyes PERRLA, non-icteric, mouth is pink and moist, no oral ulceration, missing teeth Skin: several tattoos, ecchymosis on extremities, thin skin Heart: 1/6 holosystolic murmur loudest at pulmonic valve, tachycardic, regular rhythm, peripheral pulses palpable, no peripheral edema Lungs: clear to auscultation, no crackles Abdominal exam: flat abdomen with no ecchymosis or skin changes, bowel sounds present in all four quadrants, dullness to percussion in all quadrants, no abdominal bruits heard, no pain to palpation, no hepatomegaly, possibly splenomegaly, MSK: extremities have various tattoos, are thin, cachetic, swan neck deformity of right hand digits, volar deviation of right hand at metacarpophalangeal joint with hyperflexion of right wrist, Assessment: Mr. Cabello is a thin, pale, 77 year old man that comes to GI as a consult for diarrhea, anemia, Hemoccult positive stool ,and 10 cm dilation of the rectum. Differential includes: 1. LGL leukemia induced diarrhea, Hemoccult positive stool, weight loss, and hematologic abnormalities 2. Cerebral Palsy induced obstipation/ diarrhea 3. Large Bowel obstruction due to bilateral inguinal hernia causing obstipation and anemia 4. Depression due to psychomotor retardation, fatigue, decreased energy, decreased appetite, anhedonia 5. Anorexia nervosa due to low body weight and decreased appetite Diagnosis: 1. 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 Cerebral Palsy 3. Unintentional Weight loss 4. Depression 5. Tachycardia 6. Hypotension His obstipation, diarrhea, anemia and Hemoccult positive stool is most likely attributed to his cerebral palsy and new diagnosis of LGL leukemia. No GI intervention needed at this time. I do not suggest a colonoscopy or EGD due to his other comorbidities and medical conditions. I suggest documenting bowel movements to evaluate the diarrhea/ obstipation. Red-check stool for blood. Monitor weight, suggest high caloric meals and weight boosting beverage like Ensure/Boost. Stop Metoprolol due to patient being hypotensive and thin. Psychiatry consult to confirm depression. PT consult for cerebral palsy. Talk with patient about living will, and DNR status. Chief complaint: uti,neutropenia, failure to thrive, gi bleed PMFSH - History History Provided By: Patient - Medical History Medical History: Medical History (Last Reviewed 01/14/18 @ 08:07 by Arturo Parra) Diarrhea Hernia of abdominal wall Nausea - Family History Family History: Family History (Last Reviewed 01/14/18 @ 08:20 by Shama Oliveira) Other Cancer - Tobacco History Smoking Status: Former smoker Tobacco Type: Cigarettes - Alcohol History How Often Do You Have a Drink Containing Alcohol: Never - Substance Use History Substance History: No History of Abuse - Immunization History Tetanus Immunization: Unsure Hx Influenza Vaccine This Season: No Medications and Allergies Active Medications: Active Medications Acetaminophen (Tylenol) 650 mg PO Q4H PRN PRN Reason: Temp > 100.4 Al Hydroxide/Mg Hydroxide (Milk Of Mel Alvarez) 30 ml PO Q12H PRN PRN Reason: Mild Constipation Filgrastim (Neupogen Inj) 300 mcg SQ DAILY@1400 [facility] Stop: 01/15/18 14:01 Cefepime HCl 2,000 mg/ Sodium (Chloride) 100 mls @ 200 mls/hr IV.SIG Q12H [facility] Last Infusion: 01/14/18 05:19 Dose: Infused Sodium Chloride (Ns Inj) 1,000 mls @ 70 mls/hr IV.CONT .[id number] [facility] Last Admin: 01/14/18 06:35 Dose: Not Given Vancomycin HCl 1,000 mg/ (Sodium Chloride) 250 mls @ 250 mls/hr IV.SIG Q24H [facility] Last Infusion: 01/14/18 11:32 Dose: Infused Lactobacillus Acidophilus (Lactinex) 1 tab PO TID [facility] Last Admin: 01/14/18 12:51 Dose: 1 tab Metoprolol Tartrate (Lopressor) 12.5 mg PO BID [facility] Last Admin: 01/14/18 16:30 Dose: Not Given Miscellaneous (Pill Splitter) 1 each [facility] Ondansetron HCl (Zofran Inj) 4 mg IV.PUSH Q6H PRN PRN Reason: NAUSEA OR VOMITING Sodium Chloride (Ns Flush) 2 ml IV.FLUSH PRN PRN PRN Reason: FLUSH AFTER USING IV ACCESS Allergies Allergy/AdvReac Type Severity Reaction Status Date / Time penicillin G Allergy Unknown Hives Verified 01/13/18 13:16 Home Medications Medication Instructions Recorded Confirmed Type Lactobacillus acidoph-pectin 2 tab PO DAILY 01/13/18 01/13/18 History [Acidophilus-Pectin] diphenoxylate-atropine 2 tab PO Q6-8H PRN 01/13/18 01/13/18 History hydroxyzine HCl 25 mg PO TID-QID 01/13/18 01/13/18 History metoprolol tartrate 25 mg PO BID 01/13/18 01/13/18 History Exam Vital signs: Vital Signs 01/13/18 18:28 01/13/18 20:00 01/14/18 00:00 Temperature 97.4 F L 97.9 F Pulse Rate 92 H 98 H 87 Respiratory Rate 18 18 18 Blood Pressure 107/62 122/58 L 107/55 L Pulse Oximetry 100 99 01/14/18 08:00 01/14/18 12:00 Temperature 98 F Pulse Rate 97 H 100 H Respiratory Rate 18 20 Blood Pressure 92/54 L 100/51 L Pulse Oximetry 98 Intake & Output 01/13/18 01/14/18 01/14/18 18:59 06:59 18:59 Intake Total 450 / 450 1580 / 1580 250 / 250 Output Total 325 / 325 Balance 450 / 450 1255 / 1255 250 / 250 Weight 45 kg 45 kg Intake: IV 450 / 450 1100 / 1100 250 / 250 NS Inj 1,000 ML @ 70 mls/hr IV. 1000 / 1000 CONT .[id number] [facility] Rx#:[id number] Maxipime Inj 2,000 MG In NS Inj 100 / 100 100 / 100 100 ML @ 200 mls/hr IV.SIG Q12H [facility] Rx#:[id number] Vancomycin Inj 1,000 MG In NS 250 / 250 250 / 250 Inj 250 ML @ 250 mls/hr IV.SIG Q24H [facility] Rx#:[id number] Rocephin Inj 1,000 MG In NS Inj 100 / 100 100 ML @ 200 mls/hr IV.SIG ONCE ONE Rx#:[id number] Oral 480 / 480 Output: Urine 325 / 325 Other: Date of Last Bowel Movement 01/13/18 01/13/18 Weight On Admission 45 kg Results - Labs CBC & Chem 7: 01/14/18 05:09 01/14/18 05:09 Labs: Laboratory Results - last 24 hr 01/13/18 01/14/18 01/14/18 20:38 05:09 05:09 WBC 1.4 L 1.7 L RBC 2.92 L 3.05 L Hgb 8.4 L 8.8 L Hct 25.8 L 27.4 L MCV 88.4 89.9 MCH 28.7 28.9 MCHC 32.4 32.1 RDW 16.3 16.6 Plt Count 114 L 108 L MPV 7.4 7.6 Prelim Diff (Auto) Manual diff required Slide review pending Neut % (Auto) 45.9 Lymph % (Auto) 25.1 [place] % (Auto) 25.4 H Eos % (Auto) 2.6 Baso % (Auto) 1.0 Neut # (Auto) 0.8 L Lymph # (Auto) 0.4 L [place] # (Auto) 0.4 Eos # (Auto) 0.0 Baso # (Auto) 0.0 WBC Differential Manual diff final Manual diff final Seg Neuts % (Manual) 15 L 21 Band Neuts % (Manual) 8 H 34 H Lymphocytes % (Manual) 51 H 25 Monocytes % (Manual) 21 H 18 H Eosinophils % (Manual) 5 H 1 Metamyelocytes % (Man) 1 Abs Neuts (Manual) 0.3 L* 1.0 L Differential Comment . . Toxic Granulation 1+ H 2+ H Toxic Vacuolation Present H Dohle Bodies Present H Platelet Estimate Low L Low L Platelet Morphology Normal Normal Basophilic Stippling Faint H Sodium 137 Potassium 3.9 Chloride 105 Carbon Dioxide 22.7 Anion Gap 9 BUN 40 H Creatinine 0.88 Estimated GFR 84 L Random Glucose 77 Calcium 8.3 L Total Bilirubin 0.9 AST 19 ALT 9 L Alkaline Phosphatase 64 Total Protein 6.3 L D Albumin 2.0 L - Imaging Impressions Abdomen/Pelvis CT 01/13/18 00:00 CONCLUSION: 1. No acute findings within the abdomen and pelvis. Severe rectal constipation with distention to almost 10 cm. 2. Very large right-sided inguinal hernia containing bowel but without evidence for obstruction. 3. Mild compression deformities at the thoracolumbar junction which appear old.
--- NOTE | 2018-01-14 18:04 | ECG ---
Date Performed: 01/13/2018 Time Performed: 14:47:42 PTAGE: 77 years EKG: Sinus rhythm NORMAL ECG PREVIOUS TRACING : 07/24/2017 10.52 Since the previous tracing, no significant change noted DOCTOR: Devin Jackson Interpretating Date/Time 01/14/2018 18:03:15
[2018-01-14] MEDS: Filgrastim Inj 300 MCG/ML Vial SQ SCH (21:24)
[2018-01-15] MEDS: Sod Chloride 0.9% Inj 1,000 ML IV.CONT SCH ×2 (03:06→17:24)
[2018-01-15] MEDS: Lactobacillus Acidophilus/L. Spores Tablet PO SCH ×3 (08:57→17:18)
[2018-01-15] MEDS: Vancomycin Inj 1,000 MG in Sodium Chlor 0.9% Inj 250 ML IV.SIG SCH (08:57)
[2018-01-15] MEDS: Metoprolol Tartrate 25 MG Tablet PO SCH ×2 (08:57→20:12)
--- NOTE | 2018-01-15 12:11 | P.PNID ---
Subjective Remarks: Mr. Avalos is a 77-year-old male with past medical history significant for LGL leukemia seen by Dr. Montoya in the past. Patient had a bone marrow biopsy in the past which confirmed this diagnosis. It was determined at that time the patient did not require treatment for the same. Pancytopenia has been chronic and unsure if he has been followed up as outpatient with hematology at this point. 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 For the last several years patient has been having generalized weakness and due to inability to take care of himself independently he was placed in an assisted living facility. Patient has a cousin who lives locally and checks on him. Patient also has a daughter who visits him off and on but does not seem to be very involved in the care of the patient. With this background patient was brought into the emergency room for evaluation of failure to thrive, decreased appetite and generalized weakness. Patient was also apparently defecating on himself because he was unable to get out of bed. He was seen by counselors who suggested patient be sent to the emergency department for evaluation. Due to severe pancytopenia, neutropenia patient was admitted to rule out sepsis. Due to abnormal behavior of defecating on himself a CT of the head was done which was normal. Infectious diseases consulted for evaluation and management of possible neutropenic sepsis. Overnight events reviewed No fevers No rash No diarrhea Reports he eats a regular meal but is on liquid diet here. dw to address this. Antibiotics: Cefepime IV Vanco IV Lines: Lines ok Past Medical History: reviewed Allergies/Adverse Reactions: Allergies penicillin G Allergy (Unknown, Verified 01/13/18 13:16) Hives Objective Vital Signs 01/14/18 16:00 01/14/18 20:00 01/14/18 23:46 Temperature 97.6 F 98.0 F Pulse Rate 103 H 116 H Respiratory Rate 19 20 Blood Pressure 93/54 L 111/58 L 92/48 L Pulse Oximetry 99 99 01/15/18 00:00 01/15/18 04:00 01/15/18 04:25 Temperature 97.9 F 97.7 F Pulse Rate 97 H 93 H Respiratory Rate 15 13 Blood Pressure 92/50 L 98/54 L Pulse Oximetry 98 97 01/15/18 07:50 01/15/18 08:00 01/15/18 11:46 Temperature 98 F 98.2 F Pulse Rate 100 H 91 H Respiratory Rate 18 17 Blood Pressure 98/56 L 96/54 L Pulse Oximetry 99 99 100 Intake & Output 01/14/18 01/15/18 01/15/18 18:59 06:59 18:59 Intake Total 800 / 800 580 / 580 Balance 800 / 800 580 / 580 Weight 47.3 kg Intake: IV 350 / 350 100 / 100 Maxipime Inj 2,000 MG In NS Inj 100 / 100 100 / 100 100 ML @ 200 mls/hr IV.SIG Q12H [facility] Rx#:[id number] Vancomycin Inj 1,000 MG In NS 250 / 250 Inj 250 ML @ 250 mls/hr IV.SIG Q24H [facility] Rx#:[id number] Oral 450 / 450 480 / 480 Other: # Voids 2 # Urine Diapers 4 Date of Last Bowel Movement 01/14/18 01/15/18 # Bowel Movements 3 1 01/14/18 00:28 Blood - Peripheral Aerobic Blood Culture - Preliminary No growth in 1 day 01/14/18 00:28 Blood - Peripheral Anaerobic Blood Culture - Preliminary No growth in 1 day 01/13/18 13:36 Blood - Peripheral Aerobic Blood Culture - Preliminary No growth in 2 days 01/13/18 13:36 Blood - Peripheral Anaerobic Blood Culture - Preliminary No growth in 2 days 01/13/18 13:36 Catheterized Urine Urine Culture - Final No growth in 48 hours Lab - Hematology Results 01/13/18 01/13/18 01/14/18 13:36 20:38 05:09 WBC 1.2 L 1.4 L 1.7 L RBC 3.29 L 2.92 L 3.05 L Hgb 9.7 L 8.4 L 8.8 L Hct 29.6 L 25.8 L 27.4 L MCV 90.1 88.4 89.9 MCH 29.6 28.7 28.9 MCHC 32.8 32.4 32.1 RDW 16.9 16.3 16.6 Plt Count 125 L 114 L 108 L MPV 7.4 7.4 7.6 Prelim Diff (Auto) Manual diff required Manual diff required Slide review pending Neut % (Auto) 45.9 Lymph % (Auto) 25.1 [place] % (Auto) 25.4 H Eos % (Auto) 2.6 Baso % (Auto) 1.0 Neut # (Auto) 0.8 L Lymph # (Auto) 0.4 L [place] # (Auto) 0.4 Eos # (Auto) 0.0 Baso # (Auto) 0.0 WBC Differential Manual diff final Manual diff final Manual diff final Seg Neuts % (Manual) 17 15 L 21 Band Neuts % (Manual) 9 H 8 H 34 H Lymphocytes % (Manual) 47 H 51 H 25 Monocytes % (Manual) 21 H 21 H 18 H Eosinophils % (Manual) 2 5 H 1 Basophils % (Manual) 2 Metamyelocytes % (Man) 2 H 1 Abs Neuts (Manual) 0.3 L* 0.3 L* 1.0 L Differential Comment . . . Toxic Granulation 1+ H 2+ H Toxic Vacuolation Present H Dohle Bodies Present H Platelet Estimate Low L Low L Low L Platelet Morphology Normal Normal Normal Basophilic Stippling Faint H Lab - Chemistry Results 01/13/18 01/13/18 01/13/18 13:25 13:25 13:36 Sodium 139 Potassium 4.2 Chloride 105 Carbon Dioxide 25.1 Anion Gap 9 BUN 45 H Creatinine 1.05 Estimated GFR 68 L Random Glucose 86 Lactic Acid 1.5 Calcium 8.5 Magnesium 2.4 Total Bilirubin 0.8 AST 17 ALT 13 Alkaline Phosphatase 73 Ammonia 27 Total Creatine Kinase 18 L Troponin I Less than 0.02 L Total Protein 7.1 Albumin 2.3 L 01/14/18 05:09 Sodium 137 Potassium 3.9 Chloride 105 Carbon Dioxide 22.7 Anion Gap 9 BUN 40 H Creatinine 0.88 Estimated GFR 84 L Random Glucose 77 Lactic Acid Calcium 8.3 L Magnesium Total Bilirubin 0.9 AST 19 ALT 9 L Alkaline Phosphatase 64 Ammonia Total Creatine Kinase Troponin I Total Protein 6.3 L D Albumin 2.0 L Imaging: ITS Impressions Abdomen/Pelvis CT 01/13/18 00:00 CONCLUSION: 1. No acute findings within the abdomen and pelvis. Severe rectal constipation with distention to almost 10 cm. 2. Very large right-sided inguinal hernia containing bowel but without evidence for obstruction. 3. Mild compression deformities at the thoracolumbar junction which appear old. Chest X-Ray 01/13/18 13:14 CONCLUSION: No acute cardiopulmonary process. There is chronic change described above. Head CT 01/13/18 13:14 CONCLUSION: 1. No acute abnormality is seen. 2. Chronic cerebral atrophy. 3. Areas of encephalomalacia in the left periventricular region extending to the posterior left basal ganglia. . Scrotum Ultrasound 01/13/18 13:17 CONCLUSION: 1. Bilateral inguinal hernias. 2. The testicles appear normal. 3. Bilateral mild hydroceles. Physical Exam: GENERAL: Poorly nourished, thin built, not in acute distress SKIN: Cool and dry, no generalized rash HEAD: Atraumatic. Normocephalic. No temporal or scalp tenderness. EYES: Pupils equal round and reactive. Scleral icterus. No injection or drainage. No petechia ENT: Nothing abnormal detected NECK: Trachea midline. Supple, nontender, no meningeal signs. CARDIOVASCULAR: HS audible. RESPIRATORY: Clear to auscultation bilaterally. GASTROINTESTINAL: Abdomen soft nontender. MUSCULOSKELETAL: Right upper extremity with bony deformities and atrophy of the muscles. NEUROLOGICAL: Alert oriented 3. Nonfocal. Psych cooperative IV line sites ok. Assessment and Plan - Plan Neutropenic rule out sepsis Failure to thrive Hypotension: infection vs prerenal Leukemia not candidate for treatment Recs Continue Cefepime IV (once ANC improved ok to stop Cefepime IV) DC Vanco IV Pancytopenia is chronic. Failure to thrive appears to ? depression or other cause related. Please consider a psych consult. Recommend GI consult for severe constipation and rectal distention Recommend palliative care consult dw : will sign off please call back if any change in clinical condition or questions. discussed to discontinue Cefepime once ANC improved and clinically stable. Bowel regimen: enema or lactulose per GI for obstipation. covering for me this weekend and available prn if any change in condition or Qs.
--- NOTE | 2018-01-15 12:30 | P.PN ---
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 Patient is a resident at local nursing facility. Apparently over the past several days patient has had decreased appetite and has been defecating on himself. He was seen by a chief engineer drilling and recovery doctor today who suggested patient be sent to the ED for evaluation. Patient is alert and oriented x3 during my exam and report appropriately to all my questions. Abnormal lab include severe pancytopenia, neutropenia and abnormal UA. Patient had a normal head CT. 01/14: Seen in his bedroom, nathanael asked for Nutrition evaluation, the patient has Cachexia, continue antibiotics for UTI, discussed with nurse Miss Cruz. 01/15: As per ID specialist recommended to continue antibiotics, consult GI for Obstipation and rectal distention, Recommended Palliative Care consult, as per document specialist he has Neutropenia status post Neupogen injection, LGL Leukemia patient not candidate for any aggressive management, flow cytometry pending, GI specialist recommended Clear liquids, IV Hydration, Lactinex the patient was not interested in any procedure. discussed with ID specialist Doctor Ely Arevalo she wants the patient to be evaluated by Psychiatry specialist, removed Vancomycin and will continue Cefepime if by tomorrow stable recommended to discontinue Cefepime tomorrow and she signed off the case. also recommended to start Regular diet, Calorie count. Physical Exam Vital signs: Vital Signs 01/14/18 16:00 01/14/18 20:00 01/14/18 23:46 Temperature 97.6 F 98.0 F Pulse Rate 103 H 116 H Respiratory Rate 19 20 Blood Pressure 93/54 L 111/58 L 92/48 L Pulse Oximetry 99 99 01/15/18 00:00 01/15/18 04:00 01/15/18 04:25 Temperature 97.9 F 97.7 F Pulse Rate 97 H 93 H Respiratory Rate 15 13 Blood Pressure 92/50 L 98/54 L Pulse Oximetry 98 97 01/15/18 07:50 01/15/18 08:00 01/15/18 11:46 Temperature 98 F 98.2 F Pulse Rate 100 H 91 H Respiratory Rate 18 17 Blood Pressure 98/56 L 96/54 L Pulse Oximetry 99 99 100 Intake & Output 01/14/18 01/15/18 01/15/18 18:59 06:59 18:59 Intake Total 800 / 800 580 / 580 Balance 800 / 800 580 / 580 Weight 47.3 kg Intake: IV 350 / 350 100 / 100 Maxipime Inj 2,000 MG In NS Inj 100 / 100 100 / 100 100 ML @ 200 mls/hr IV.SIG Q12H [facility] Rx#:[id number] Vancomycin Inj 1,000 MG In NS 250 / 250 Inj 250 ML @ 250 mls/hr IV.SIG Q24H [facility] Rx#:[id number] Oral 450 / 450 480 / 480 Other: # Voids 2 # Urine Diapers 4 Date of Last Bowel Movement 01/14/18 01/15/18 # Bowel Movements 3 1 Narrative: GENERAL: Poorly nourished, thin built, not in acute distress SKIN: Cool and dry, no generalized rash HEAD: Atraumatic. Normocephalic. No temporal or scalp tenderness. EYES: Pupils equal round and reactive. Scleral icterus. No injection or drainage. No petechia ENT: Nothing abnormal detected NECK: Trachea midline. Supple, nontender, no meningeal signs. CARDIOVASCULAR: HS audible. RESPIRATORY: Clear to auscultation bilaterally. GASTROINTESTINAL: Abdomen soft nontender. MUSCULOSKELETAL: Right upper extremity with bony deformities and atrophy of the muscles. NEUROLOGICAL: Alert oriented 3. Nonfocal. Psych cooperative Results - Labs CBC & Chem 7: 01/16/18 04:10 01/14/18 05:09 Laboratory Results - last 24 hr 01/13/18 20:38 Immunophenotypic Anal Microbiology 01/14/18 00:28 Blood - Peripheral Aerobic Blood Culture - Preliminary No growth in 1 day 01/14/18 00:28 Blood - Peripheral Anaerobic Blood Culture - Preliminary No growth in 1 day 01/13/18 13:36 Blood - Peripheral Aerobic Blood Culture - Preliminary No growth in 2 days 01/13/18 13:36 Blood - Peripheral Anaerobic Blood Culture - Preliminary No growth in 2 days 01/13/18 13:36 Catheterized Urine Urine Culture - Final No growth in 48 hours - Imaging Abdomen/Pelvis CT 01/13/18 00:00 CONCLUSION: 1. No acute findings within the abdomen and pelvis. Severe rectal constipation with distention to almost 10 cm. 2. Very large right-sided inguinal hernia containing bowel but without evidence for obstruction. 3. Mild compression deformities at the thoracolumbar junction which appear old. Chest X-Ray 01/13/18 13:14 CONCLUSION: No acute cardiopulmonary process. There is chronic change described above. Head CT 01/13/18 13:14 CONCLUSION: 1. No acute abnormality is seen. 2. Chronic cerebral atrophy. 3. Areas of encephalomalacia in the left periventricular region extending to the posterior left basal ganglia. . Scrotum Ultrasound 01/13/18 13:17 CONCLUSION: 1. Bilateral inguinal hernias. 2. The testicles appear normal. 3. Bilateral mild hydroceles. - Procedures None Assessment and Plan - Plan 77-year-old man with Neutropenic sepsis: WBC <4000, HR>90; source UTI. Normal lactic acid Status post cefepime and vancomycin in ED, continue antibiotics pending culture report 01/15: As per ID specialist recommended to continue antibiotics, consult GI for Obstipation and rectal distention, Recommended Palliative Care consult, as per document specialist he has Neutropenia status post Neupogen injection, LGL Leukemia patient not candidate for any aggressive management, flow cytometry pending, GI specialist recommended Clear liquids, IV Hydration, Lactinex the patient was not interested in any procedure. discussed with ID specialist Doctor Ely Arevalo she wants the patient to be evaluated by Psychiatry specialist, removed Vancomycin and will continue Cefepime if by tomorrow stable and ANC improve to remove Cefepime, she signed off the case. Calorie count. UTI Continue with above antibiotics cefepime Neutropenia Patient with a history of LGL leukemia, No evidence of secondary infection due to Neutropenia, to continue Neupogen, Discussed with Doctor Luis Vivar. Check CT abdomen/pelvics and consider CT chest Neutropenic precaution History of pancytopenia Heme-Onc consultation pending Head CT negative CT abdomen/pelvis pending and consider Chest CT Monitor CBC Enlarged scrotum Testicular ultrasound noted and reviewed with finding of bilateral inguinal hernia Failure to thrive Speech therapist consult for swallow eval Dietitian group therapy counselor PT consult to treat and eval History of cerebral palsy History of congenital right lower extremity and right upper extremity deformity PT to treat and eval OT consultation Hypertension Resume oral antihypertensive medication with holding parameter DVT prophylaxis: Chemical anti-prophylaxis is contraindicated, bilateral SCDs Code Status: DNR Discussed Condition With: Patient and Nurse ID specialist Doctor Ely Arevalo document specialist Doctor Luis Vivar Discharge Planning: Once cleared by document specialist.
[2018-01-15] MEDS: Filgrastim Inj 300 MCG/ML Vial SQ SCH (13:32)
--- NOTE | 2018-01-15 16:06 | P.DIET ---
Nutritional Evaluation Type of nutrition evaluation: initial [place] [facility] [place]: [place] [facility] [place] Subjective Subjective Comments: Pt receiving nursing are when visit attempted Objective - Diagnosis UTI, Neutrapenia, FTT, GI Bleed - Objective % IBW: 60 Body Weight Used for Calculations: Actual (45 kg-admission wt) Energy Needs - Lower Range (kCal/kg): 40 Energy Needs - Upper Range (kCal/kg): 45 Lower Limit kCal/kg (kCals): 1,800 Upper Limit kCal/kg (kCals): 2,025 Lower Limit Protein Factor (Grams per Kg): 1.2 Upper Limit Protein Factor (Grams per Kg): 1.5 Lower Protein Needs (Protein): 54 Upper Protein Needs (Protein): 68 Dietitian Reviewed in Medical Record: Current diet, Curent medications, Intake & Output, Labs, Medical history Diet Order: Full Liquid Oral Diet Intake Amount: Fair 50-75% Speech Therapy Recommendations: Yes (01/14/18 [facility] soft thin Liquids) Objective Comments: H inlcudes: Cerebral Palsy, Hernia abdominal wall, Lymphocytic Leukemia, Rheumatoid Arthritis, pancytopenia Albumin 2.0 Meds include: Lactinex, Lopressor +BM Assessment Assessment: Pt is at nutritional risk r/t diagnosis, decreased appetite and very low BMI 15.0. Pt is tolerating Full Liquid diet w/75% po intake for meals. Send Ensure Enlive TID(= 350 kcal and 20g protein per serving). Monitor diet advancement. Monitor supplement acceptance. Labs reviewed-low albumin noted. Dietitian following. Recommendations: 1. Send Ensure Enlive TID 2. Monitor diet advancement 3. Monitor supplement acceptance 4. Dietitian following Dietitian to Monitor: Lab values, Supplement acceptance, Intake & Output, Weight change, PO Intake, Diet advancement, Swallow recommendations, Medical course
--- NOTE | 2018-01-15 16:23 | MH ---
cc: Luis Vivar MD DATE OF ADMISSION: 01/13/2018 REASON FOR VISIT: Followup of pancytopenia. HISTORY OF PRESENT ILLNESS: Mr. Deal is doing better. He feels better and wants to go back to his nursing place. He has no fevers or chills. He received Neupogen yesterday and the day before with stabilization of white blood cell count. He has no sore throat or dysphagia. No chills or rigors. VITAL SIGNS: Stable. He is afebrile. Pallor present. No icterus. NECK: No palpable adenopathy in the neck or axilla. HEENT: Without oropharyngeal mucositis or infection. Poor dental hygiene noted. Dry mucous membranes noted. Alert, oriented x3. HEART AND LUNGS: Clear to auscultation. ABDOMEN: Soft, without palpable splenomegaly. EXTREMITIES: No edema or evidence of DVTs. LABORATORY DATA: Reviewed in chart. 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 No evidence of secondary infection due to neutropenia. 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 At this point, the best option is to continue his Neupogen today and repeat his blood count tomorrow and if he is discharged after that, he could follow up with hematology as outpatient. The patient's daughter was not at the bedside today. Case discussed with the hospitalist. Luis Vivar MD MVA/ct , 04:06 PM , 04:12 PM
[2018-01-15] MEDS ORDERED: Sod Phosphate/Sod Biphosphate (Adult) Enema 133 ML Bottle RECTAL ONE (16:46)
--- NOTE | 2018-01-15 17:20 | P.CONPAL ---
Consult Service: Palliative Care Requesting Physician: Kehinde Lee Reason for Consult: a. To assist with evaluation and management of symptoms including: Debility, poor appetite. b. To assist medical decision maker(s) with: better understanding of current medical conditions; weighing benefits/burdens of medical treatment options; making medical treatment decisions. Primary Care Provider: Dr. Foster History of Present Illness History of Present Illness: Mr. 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 Patient presented to ED on 01/13/18 for evaluation of generalized weakness and poor appetite. ED workup revealing WBC of 1.2, platelet count of 125, neutrophils of 0.3. BUN/creatinine 45/1.05 and albumin of 2.3. UA negative for nitrates, moderate leukocytes. Abdomen/pelvis CT negative for acute process , however, severe rectal constipation with distention to almost 10 cm. It also show very large right-sided inguinal hernia containing bowel but without evidence for obstruction. Chest x-ray and head CT negative for acute process. Patient was admitted for further monitoring and management. Hematology oncology Dr. Vivar consulted for evaluation of pancytopenia and neutropenia. Patient not a candidate for any aggressive therapy or diagnostic evaluation at this time given his clinical condition. 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 Patient was seen on 04/06/2013 in regards to his LGL leukemia and at that time the T-cell LGL leukemia was on observation and he was on methotrexate for his rheumatoid arthritis. He was to continue observation every 3 months but it is unclear if he followed up. Patient was started on Neupogen with recommendations to follow- up with hematology as outpatient. Infectious disease, Dr. Brittney Arevalo consulted on 01/14 for evaluation and management of neutropenic sepsis. Patient was continue on antibiotic management. Gastroenterology, Dr. Conde consulted on 01/15 for evaluation of obstipation. Patient was placed on clear liquids with bowel regimen and enemas. Patient reported multiple bowel movements today. Palliative care has been consulted for further clarifications of goals of care in the setting of cerebral palsy, failure to thrive, leukemia progressive physical decline. Dual visit with palliative care social work associate Jyoti Tillman. Patient seen in his room. He was resting in bed in no acute distress. In this first visit, reviewed the role of palliative care and advance illness in regards to symptom management as well as support surrounding goals of care and advanced care planning. Patient receptive to palliative care visit. Patient alert and oriented times self, place and situation. Verbal and able to communicate his needs. Patient has no complaints besides generalized itchiness and dry skin. Denies pain, shortness of breath, nausea or vomiting. Reviewed patient's past medical history and psychosocial history. Patient tells me that he has been a resident of an assisted living facility since 1991. History of cerebral palsy with deformities to right upper and lower extremities. He was able to ambulate without assistive device until about a year ago. Patient with progressive physical decline, on a wheelchair prior to this hospitalization. Patient requiring assistance with ADLs, able to transfer from bed to wheelchair about a month ago. Patient reports that he has been having very poor appetite and generalized weakness for the past couple of months. Patient was able to verbalize why he was at the hospital, reviewed current plan of care. Patient tells me that he is aware of his leukemia diagnosis and that no treatment is being planned. He tells me that he is aware that he is requiring a higher level of care given his progressive physical decline. Patient in agreement with transitioning to [facility] facility. Patient was assisted with completion of advance directives, designated his cousin Polly as healthcare surrogate decision maker. Reviewed risks, benefits and limitations of CPR, intubation and mechanical ventilation given patient's current clinical condition to include profound physical deconditioning. Patient electing DNR/DNI, community DNR signed and placed in chart. Copy sent to EMR. Hospice philosophy and benefits introduced given overall poor prognosis and symptom burden. Patient electing to transition to comfort-directed care with hospice once that his long- term facility. Palliative care spoke with patient's cousin Polly who is in agreement with plan of care. Discussed case with case hardener, patient likely to be discharged to [facility] for rehab with transition to long-term. Hospice referral sent. Case discussed with bedside RN. Function/Cognitive Trajectory: Patient with history of cerebral palsy and congenital deformities to right upper and lower extremities. Resident of [facility] since 1991. Walking without assistive device up until a year ago. Wheelchair-bound prior to this hospitalization. Patient with progressive physical decline, on a wheelchair prior to this hospitalization. Patient requiring assistance with ADLs, able to transfer from bed to wheelchair about a month ago. Patient reports that he has been having very poor appetite and generalized weakness for the past couple of months. Review of Systems Constitutional: Reports fatigue, Reports lack of energy, Reports weakness, Reports weight loss, Denies excessive sweating Eyes: Denies discharge, Denies dry eyes Ears, Nose, Mouth, and Throat: Reports abnormal hearing, Denies hearing loss, Denies hoarseness, Denies nasal congestion, Denies nasal discharge Cardiovascular: Denies chest pain, Denies fast heart rate, Denies leg swelling, Denies shortness of breath Respiratory: Denies chest congestion, Denies cough, Denies coughing up blood Gastrointestinal: Reports change in bowel habits, Reports incontinent of stools , Reports loose stools, Denies abdominal pain, Denies difficulty swallowing Genitourinary: Reports scrotal swelling Musculoskeletal: Reports deformity, Denies back pain Skin/Breast: Reports dry skin Neurologic: Reports abnormal speech, Denies seizure-like activity Psychiatric: Reports change in appetite, Denies anxiety Allergic/Immunologic: Denies seasonal runny nose PMFSH - History History Provided By: Patient - Medical History Medical History: Medical History (Last Updated 01/15/18 @ 16:57 by Margie Serna APRN) Cerebral palsy Congenital deformity Diarrhea Failure to thrive Hernia of abdominal wall Hypertension Inguinal hernia Large granular lymphocytic leukemia Nausea Rheumatoid arthritis - Surgical History Surgical History: Surgical History (Last Updated 01/15/18 @ 16:57 by Margie Serna APRN) History of cataract surgery Status post closed reduction of dislocated total hip prosthesis - Family History Family History: Family History (Last Updated 01/15/18 @ 16:58 by Margie Serna APRN) Father Alzheimer's dementia Cancer - Tobacco History Tobacco Use In Past 30 Days: No Smoking Status: Former smoker Tobacco Type: Cigarettes - Alcohol History How Often Do You Have a Drink Containing Alcohol: Never - Substance Use History Substance History: No History of Abuse - Immunization History Tetanus Immunization: Unsure Hx Influenza Vaccine This Season: No Medications and Allergies Active Medications: Active Medications Acetaminophen (Tylenol) 650 mg PO Q4H PRN PRN Reason: Temp > 100.4 Al Hydroxide/Mg Hydroxide (Milk Of Magnesia Liq) 30 ml PO Q12H PRN PRN Reason: Mild Constipation Cefepime HCl 2,000 mg/ Sodium (Chloride) 100 mls @ 200 mls/hr IV.SIG Q12H PENDING SALE TO [facility] Last Infusion: 01/15/18 05:41 Dose: Infused Sodium Chloride (Ns Inj) 1,000 mls @ 70 mls/hr IV.CONT .[id number] PENDING SALE TO [facility] Last Admin: 01/15/18 03:06 Dose: 70 mls/hr Lactobacillus Acidophilus (Lactinex) 1 tab PO TID PENDING SALE TO [facility] Last Admin: 01/15/18 13:33 Dose: 1 tab Metoprolol Tartrate (Lopressor) 12.5 mg PO BID PENDING SALE TO [facility] Last Admin: 01/15/18 08:57 Dose: Not Given Miscellaneous (Pill Splitter) 1 each OTHER [facility] Ondansetron HCl (Zofran Inj) 4 mg IV.PUSH Q6H PRN PRN Reason: NAUSEA OR VOMITING Sodium Chloride (Ns Flush) 2 ml IV.FLUSH PRN PRN PRN Reason: FLUSH AFTER USING IV ACCESS Allergies Allergy/AdvReac Type Severity Reaction Status Date / Time penicillin G Allergy Unknown Hives Verified 01/13/18 13:16 Home Medications Medication Instructions Recorded Confirmed Type Lactobacillus acidoph-pectin 2 tab PO DAILY 01/13/18 01/13/18 History [Acidophilus-Pectin] diphenoxylate-atropine 2 tab PO Q6-8H PRN 01/13/18 01/13/18 History hydroxyzine HCl 25 mg PO TID-QID 01/13/18 01/13/18 History metoprolol tartrate 25 mg PO BID 01/13/18 01/13/18 History Advance Directives Living Will: No Healthcare Surrogate: Yes Power of Ball Sorter: No Physical Exam Vital Signs: Vital Signs - 24 hr 01/14/18 20:00 01/14/18 23:46 01/15/18 00:00 Temperature 98.0 F 97.9 F Pulse Rate 116 H 97 H Respiratory Rate 20 15 Blood Pressure 111/58 L 92/48 L Pulse Oximetry 99 98 01/15/18 04:00 01/15/18 04:25 01/15/18 07:50 Temperature 97.7 F 98 F Pulse Rate 93 H 100 H Respiratory Rate 13 18 Blood Pressure 92/50 L 98/54 L 98/56 L Pulse Oximetry 97 99 01/15/18 08:00 01/15/18 11:46 Temperature 98.2 F Pulse Rate 91 H Respiratory Rate 17 Blood Pressure 96/54 L Pulse Oximetry 99 100 I&O: Intake & Output 01/13/18 01/14/18 01/15/18 01/16/18 06:59 06:59 06:59 06:59 Intake Total 2029 / 2029 1380 / 1380 Output Total 325 / 325 Balance 1705 / 1705 1380 / 1380 Weight 45 kg 47.3 kg Physical Exam: CONSTITUTIONAL/GENERAL: This is a cachectic elderly male in bed in no acute distress. TUBES/LINES/DRAINS: PIV. SKIN: No jaundice, rashes, or lesions. Ecchymoses on upper extremities. No wounds seen anteriorly. Skin temperature appropriate. Not diaphoretic. Dry skin. HEAD: Atraumatic. Normocephalic. EYES: Pupils equal and round and reactive. Extraocular motions intact. No scleral icterus. No injection or drainage. Fundi not examined. ENT: Hearing grossly normal. Nose without bleeding or purulent drainage. Moist oral mucosa. NECK: Trachea midline. Supple, nontender. CARDIOVASCULAR: Regular rate and rhythm without murmurs, gallops, or rubs. Peripheral pulses symmetric. RESPIRATORY/CHEST: Symmetric, unlabored respirations. Clear to auscultation. Breath sounds equal bilaterally. No wheezes, rales, or rhonchi. GASTROINTESTINAL: Abdomen soft, non-tender, nondistended. No guarding. Bowel sounds present. GENITOURINARY: Without palpable bladder distension. MUSCULOSKELETAL: Extremities without clubbing, cyanosis, or edema. Severe deformity to right arm/hand. Muscle wasting to all 4 extremities. LYMPHATICS: No palpable cervical or supraclavicular adenopathy. NEUROLOGICAL: Awake and alert. Motor and sensory grossly within normal limits. Follows commands. PSYCHIATRIC: Calm, pleasant. Diagnostic Tests Laboratory: Laboratory Results - last 72 hr 01/13/18 01/13/18 01/13/18 13:25 13:25 13:36 WBC RBC Hgb Hct MCV MCH MCHC RDW Plt Count MPV Prelim Diff (Auto) Neut % (Auto) Lymph % (Auto) [place] % (Auto) Eos % (Auto) Baso % (Auto) Neut # (Auto) Lymph # (Auto) [place] # (Auto) Eos # (Auto) Baso # (Auto) WBC Differential Seg Neuts % (Manual) Band Neuts % (Manual) Lymphocytes % (Manual) Monocytes % (Manual) Eosinophils % (Manual) Basophils % (Manual) Metamyelocytes % (Man) Abs Neuts (Manual) Differential Comment Toxic Granulation Toxic Vacuolation Dohle Bodies Platelet Estimate Platelet Morphology Basophilic Stippling PT 10.5 INR 1.0 APTT 26.2 Sodium Potassium Chloride Carbon Dioxide Anion Gap BUN Creatinine Estimated GFR Random Glucose Lactic Acid 1.5 Calcium Magnesium Total Bilirubin AST ALT Alkaline Phosphatase Ammonia 27 Total Creatine Kinase Troponin I Total Protein Albumin Urine Color Urine Clarity Urine pH Ur Specific [place] Urine Protein Urine Glucose (UA) Urine Ketones Urine Occult Blood Urine Nitrate Urine Bilirubin Urine Urobilinogen Ur Leukocyte Esterase Urine RBC Urine WBC Urine WBC Clumps Urine Bacteria Urine Mucus Micro UA Comment Ur Microscopic Review Urine Culture Comments Immunophenotypic Anal Blood Type Antibody Screen 01/13/18 01/13/18 01/13/18 13:36 13:36 13:36 WBC 1.2 L RBC 3.29 L Hgb 9.7 L Hct 29.6 L MCV 90.1 MCH 29.6 MCHC 32.8 RDW 16.9 Plt Count 125 L MPV 7.4 Prelim Diff (Auto) Manual diff required Neut % (Auto) Lymph % (Auto) [place] % (Auto) Eos % (Auto) Baso % (Auto) Neut # (Auto) Lymph # (Auto) [place] # (Auto) Eos # (Auto) Baso # (Auto) WBC Differential Manual diff final Seg Neuts % (Manual) 17 Band Neuts % (Manual) 9 H Lymphocytes % (Manual) 47 H Monocytes % (Manual) 21 H Eosinophils % (Manual) 2 Basophils % (Manual) 2 Metamyelocytes % (Man) 2 H Abs Neuts (Manual) 0.3 L* Differential Comment . Toxic Granulation Toxic Vacuolation Dohle Bodies Platelet Estimate Low L Platelet Morphology Normal Basophilic Stippling PT INR APTT Sodium 139 Potassium 4.2 Chloride 105 Carbon Dioxide 25.1 Anion Gap 9 BUN 45 H Creatinine 1.05 Estimated GFR 68 L Random Glucose 86 Lactic Acid Calcium 8.5 Magnesium 2.4 Total Bilirubin 0.8 AST 17 ALT 13 Alkaline Phosphatase 73 Ammonia Total Creatine Kinase 18 L Troponin I Less than 0.02 L Total Protein 7.1 Albumin 2.3 L Urine Color Urine Clarity Urine pH Ur Specific [place] Urine Protein Urine Glucose (UA) Urine Ketones Urine Occult Blood Urine Nitrate Urine Bilirubin Urine Urobilinogen Ur Leukocyte Esterase Urine RBC Urine WBC Urine WBC Clumps Urine Bacteria Urine Mucus Micro UA Comment Ur Microscopic Review Urine Culture Comments Immunophenotypic Anal Blood Type A Positive Antibody Screen Negative 01/13/18 01/13/18 01/13/18 13:36 20:38 20:38 WBC 1.4 L RBC 2.92 L Hgb 8.4 L Hct 25.8 L MCV 88.4 MCH 28.7 MCHC 32.4 RDW 16.3 Plt Count 114 L MPV 7.4 Prelim Diff (Auto) Manual diff required Neut % (Auto) Lymph % (Auto) [place] % (Auto) Eos % (Auto) Baso % (Auto) Neut # (Auto) Lymph # (Auto) [place] # (Auto) Eos # (Auto) Baso # (Auto) WBC Differential Manual diff final Seg Neuts % (Manual) 15 L Band Neuts % (Manual) 8 H Lymphocytes % (Manual) 51 H Monocytes % (Manual) 21 H Eosinophils % (Manual) 5 H Basophils % (Manual) Metamyelocytes % (Man) Abs Neuts (Manual) 0.3 L* Differential Comment . Toxic Granulation 1+ H Toxic Vacuolation Dohle Bodies Present H Platelet Estimate Low L Platelet Morphology Normal Basophilic Stippling Faint H PT INR APTT Sodium Potassium Chloride Carbon Dioxide Anion Gap BUN Creatinine Estimated GFR Random Glucose Lactic Acid Calcium Magnesium Total Bilirubin AST ALT Alkaline Phosphatase Ammonia Total Creatine Kinase Troponin I Total Protein Albumin Urine Color Ariane Urine Clarity Turbid H Urine pH 5.0 Ur Specific [place] 1.015 Urine Protein 100 H Urine Glucose (UA) Negative Urine Ketones Trace H Urine Occult Blood Large H Urine Nitrate Negative Urine Bilirubin Negative Urine Urobilinogen 4 or greater Ur Leukocyte Esterase Moderate H Urine RBC Urine WBC Urine WBC Clumps Many H Urine Bacteria Many H Urine Mucus Many H Micro UA Comment Cath-culture ind Ur Microscopic Review Not Reportable Urine Culture Comments Cath-cult indicated Immunophenotypic Anal Blood Type Antibody Screen 01/14/18 01/14/18 05:09 05:09 WBC 1.7 L RBC 3.05 L Hgb 8.8 L Hct 27.4 L MCV 89.9 MCH 28.9 MCHC 32.1 RDW 16.6 Plt Count 108 L MPV 7.6 Prelim Diff (Auto) Slide review pending Neut % (Auto) 45.9 Lymph % (Auto) 25.1 [place] % (Auto) 25.4 H Eos % (Auto) 2.6 Baso % (Auto) 1.0 Neut # (Auto) 0.8 L Lymph # (Auto) 0.4 L [place] # (Auto) 0.4 Eos # (Auto) 0.0 Baso # (Auto) 0.0 WBC Differential Manual diff final Seg Neuts % (Manual) 21 Band Neuts % (Manual) 34 H Lymphocytes % (Manual) 25 Monocytes % (Manual) 18 H Eosinophils % (Manual) 1 Basophils % (Manual) Metamyelocytes % (Man) 1 Abs Neuts (Manual) 1.0 L Differential Comment . Toxic Granulation 2+ H Toxic Vacuolation Present H Dohle Bodies Platelet Estimate Low L Platelet Morphology Normal Basophilic Stippling PT INR APTT Sodium 137 Potassium 3.9 Chloride 105 Carbon Dioxide 22.7 Anion Gap 9 BUN 40 H Creatinine 0.88 Estimated GFR 84 L Random Glucose 77 Lactic Acid Calcium 8.3 L Magnesium Total Bilirubin 0.9 AST 19 ALT 9 L Alkaline Phosphatase 64 Ammonia Total Creatine Kinase Troponin I Total Protein 6.3 L D Albumin 2.0 L Urine Color Urine Clarity Urine pH Ur Specific [place] Urine Protein Urine Glucose (UA) Urine Ketones Urine Occult Blood Urine Nitrate Urine Bilirubin Urine Urobilinogen Ur Leukocyte Esterase Urine RBC Urine WBC Urine WBC Clumps Urine Bacteria Urine Mucus Micro UA Comment Ur Microscopic Review Urine Culture Comments Immunophenotypic Anal Blood Type Antibody Screen Result Diagrams: 01/14/18 05:09 01/14/18 05:09 Microbiology: Microbiology 01/14/18 00:28 Aerobic Blood Culture - Preliminary Blood - Peripheral No growth in 1 day Anaerobic Blood Culture - Preliminary No growth in 1 day 01/13/18 13:36 Aerobic Blood Culture - Preliminary Blood - Peripheral No growth in 2 days Anaerobic Blood Culture - Preliminary No growth in 2 days 01/13/18 13:36 Urine Culture - Final Catheterized Urine No growth in 48 hours Patient/Family Conference Present at Family Conference: Patient and cousin/[facility] Family Conference Time: 43 Family Conference Location: Bedside, Telephone Issues Discussed: * Palliative care role, purpose, approach * Additional medical, psychosocial, and spiritual history * Patients general health, functional status, and cognitive changes in the months leading up to the current hospitalization * Patient/family understanding of the current medical problems * Patient/family understanding of prognosis * Patients goals of care as best understood from advance directives and/or conversations and/or values * Current medical treatment options and benefits/burdens of those options * Likely scenarios comparing ongoing aggressive care with a transition to comfort measures only * Questions answered to the best of my ability * Palliative care contact information provided * Hospice philosophy and benefits * Risks, benefits and limitations of CPR, intubation and mechanical ventilation Assessment and Plan - Disease Oriented Problem List (1) Physical deconditioning (2) Cachexia (3) Neutropenia (4) Acute UTI (5) Adult failure to thrive (6) Large granular lymphocytic leukemia (7) Rheumatoid arthritis - Symptom Scale (1) Poor appetite 0-10 Scale: Unable to quantify (2) Debility 0-10 Scale: Unable to quantify Pertinent Non-Medical Issues: Psychosocial: Patient originally from [place]. In [place] since the . He is , one biological daughter. 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 No service. Spiritual: No voodoo affiliation. Legal: Designation of healthcare surrogate in file. Ethical issues impacting care: No ethical issues identified. Important Contacts: Cousin/[facility] Polly Prognosis: Mr. 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 Patient presented to ED on 01/13/18 for evaluation of generalized weakness and poor appetite. Patient was found neutropenic and pancytopenic. Patient with progressive physical and clinical decline. Resident of [facility] since 1991, currently no longer able to care for himself. Mainly bedbound and incontinent of bowel for the past month. Patient is not a candidate for systemic therapy for his leukemia given his clinical condition. Overall prognosis is poor at the setting of profound physical deconditioning, failure to thrive, cachexia and multiple comorbidities. Patient appears hospice appropriate should he elects comfort directed care. He is a very high risk of further decompensation , continued decline and . Code Status: No Code DNR Plan: * CODE STATUS: DNR/DNI. Community DNR has been signed by patient, copy sent to EMR. * HEALTHCARE DECISION-MAKING: Patient participated in medical decision making. He appears to retain the ability to weight benefits versus burden of treatment options. Patient was assisted with completion of advance directives. Patient has designated his cousin Polly Harmon as healthcare surrogate decision maker. * GOALS OF CARE: Patient electing conservative management short of no code. Plan to discharge to long-term facility with hospice given overall poor prognosis for prolonged survival. Patient with progressive physical decline. Baseline cerebral palsy, LGL leukemia for which he is not a candidate for systemic treatment, failure to thrive with cachexia and multiple other comorbidities. Hospice referral has been sent. Cousin/[facility] Polly supportive of patient's wishes. * SYMPTOMS: =Poor appetite: Patient reports that his appetite has improved since being at the hospital. Dilatation following, patient at nutritional risk secondary to diagnosis and very low BMI of 15. Patient currently on a full liquid diet eating about 75% of his meals. Ensure 3 times daily recommended by chicken hanger. Patient may benefit from trial of Remeron 15mg PO at HS. =Debility : Progressive. Patient with profound physical deconditioning, cachexia. No longer able to care for himself, plan to discharge to long-term facility. Unlikely to improve in the setting of multiple comorbidities and progressive decline. * Case discussed with bedside RN, case hardener and hospice mine analyst. * Palliative care to continue to follow-up for further clarifications of goals of care, family support as patient's clinical course continues to evolve. Time Spent Total Floor Time (mins): 71 (Total time to include review and summarization of available medical records to include prior hospitalizations, physical exam, goals of care conversation with patient and cousin, case discussion with bedside RN, case hardener and hospice admissions nurse.) >50% Time in Counseling or Coordination of Care: Yes (Total visit time = 38 minutes; > 50% spent counseling/coordinating care) Appreciation Thank you for the opportunity to participate in the care of Faustino Cabello. Attestation Attestation: To help prompt me to consider important information that might be impacting today's encounter and assessment, information from prior notes written by myself or my colleagues may have been "brought forward" into today's note. My signature on this note, however, is an attestation that I personally performed the exam, history, and/or decision-making noted today, and, unless otherwise indicated, the interactions with patient, family, and staff as well as the review of records all occurred today. I also attest that the listed assessment and stated plan reflect my best clinical judgment today based on the combination of historical information, prior notes, and today's exam/ interactions. When time spent is documented, it refers only to time spent today by the signer, or if indicated, combined time spent today by collaborating physician/nurse practitioner.
[2018-01-16] MEDS: Sod Chloride 0.9% Inj 1,000 ML IV.CONT SCH ×2 (01:35→16:07)
[2018-01-16 04:38] LABS: Hematocrit 22.8 % (39.0-51.0); Hemoglobin 7.7 gm/dL (13.0-17.0); Mean Corpuscular HGB Conc 33.8 % (32.0-36.0); Mean Corpuscular Hemoglobin 29.8 pg (27.0-34.0); Mean Platelet Volume 7.6 fL (7.0-11.0); Platelet Count 74 th/mm3 (150-450); Red Blood Count 2.59 mil/mm3 (4.50-5.90); Red Cell Distribution Width 16.6 % (11.6-17.2); White Blood Count 1.3 th/mm3 (4.0-11.0)
[2018-01-16 05:59] LABS: Eosinophils 2 % (0-4); Lymphocytes 39 % (9-44); Monocytes 23 % (0-8); Myelocytes 1 % (0-0)
[2018-01-16 06:00] LABS: Dohle Bodies Present; Platelet Morphology Normal (Normal); Toxic Granulation 1+
[2018-01-16] MEDS: Lactobacillus Acidophilus/L. Spores Tablet PO SCH ×3 (09:25→18:03)
[2018-01-16] MEDS: Metoprolol Tartrate 25 MG Tablet PO SCH ×2 (09:25→20:57)
--- NOTE | 2018-01-16 10:02 | P.PN ---
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 Patient is a resident at local nursing facility. Apparently over the past several days patient has had decreased appetite and has been defecating on himself. He was seen by a durability engineer doctor today who suggested patient be sent to the ED for evaluation. Patient is alert and oriented x3 during my exam and report appropriately to all my questions. Abnormal lab include severe pancytopenia, neutropenia and abnormal UA. Patient had a normal head CT. 01/14: Seen in his bedroom, nathanael asked for Nutrition evaluation, the patient has Cachexia, continue antibiotics for UTI, discussed with nurse Miss Cruz. 01/15: As per ID specialist recommended to continue antibiotics, consult GI for Obstipation and rectal distention, Recommended Palliative Care consult, as per airways control specialist he has Neutropenia status post Neupogen injection, LGL Leukemia patient not candidate for any aggressive management, flow cytometry pending, GI specialist recommended Clear liquids, IV Hydration, Lactinex the patient was not interested in any procedure. discussed with ID specialist Doctor Ely Arevalo she wants the patient to be evaluated by Psychiatry specialist, removed Vancomycin and will continue Cefepime if by tomorrow stable recommended to discontinue Cefepime tomorrow and she signed off the case. also recommended to start Regular diet, Calorie count. 01/16: Stable in his bedroom, no nausea, vomit or diarrhea, giving Fleet enema, had BM will repeat Fleet enema today. Physical Exam Vital signs: Vital Signs 01/15/18 11:46 01/15/18 16:00 01/15/18 20:00 Temperature 98.2 F 97.9 F 98.2 F Pulse Rate 91 H 95 H 88 Respiratory Rate 17 16 20 Blood Pressure 96/54 L 92/54 L 95/53 L Pulse Oximetry 100 99 98 01/16/18 00:00 01/16/18 04:00 01/16/18 08:00 Temperature 97.6 F 97.3 F L 97.3 F L Pulse Rate 96 H 94 H 93 H Respiratory Rate 20 20 18 Blood Pressure 98/52 L 98/53 L 101/58 L Pulse Oximetry 98 98 100 Intake & Output 01/15/18 01/16/18 01/16/18 18:59 06:59 18:59 Intake Total 1000 / 1000 220 / 220 Balance 1000 / 1000 220 / 220 Weight 44.5 kg Intake: IV 350 / 350 100 / 100 Maxipime Inj 2,000 MG In NS Inj 100 / 100 100 / 100 100 ML @ 200 mls/hr IV.SIG Q12H JOSÉ Rx#:[id number] Vancomycin Inj 1,000 MG In NS 250 / 250 Inj 250 ML @ 250 mls/hr IV.SIG Q24H JOSÉ Rx#:[id number] Oral 650 / 650 120 / 120 Other: # Incontinent Voids 1 # Urine Diapers 5 Date of Last Bowel Movement 01/15/18 # Bowel Movements 5 # Incontinent Bowel Movements 1 Narrative: GENERAL: Poorly nourished, thin built, not in acute distress SKIN: Cool and dry, no generalized rash HEAD: Atraumatic. Normocephalic. No temporal or scalp tenderness. EYES: Pupils equal round and reactive. Scleral icterus. No injection or drainage. No petechia ENT: Nothing abnormal detected NECK: Trachea midline. Supple, nontender, no meningeal signs. CARDIOVASCULAR: HS audible. RESPIRATORY: Clear to auscultation bilaterally. GASTROINTESTINAL: Abdomen soft nontender. MUSCULOSKELETAL: Right upper extremity with bony deformities and atrophy of the muscles. NEUROLOGICAL: Alert oriented 3. Nonfocal. Psych cooperative Results - Labs CBC & Chem 7: 01/16/18 04:10 01/14/18 05:09 Laboratory Results - last 24 hr 01/16/18 04:10 WBC 1.3 L RBC 2.59 L Hgb 7.7 L Hct 22.8 L MCV 88.0 MCH 29.8 MCHC 33.8 RDW 16.6 Plt Count 74 L D MPV 7.6 Prelim Diff (Auto) Manual diff required WBC Differential Manual diff final Seg Neuts % (Manual) 17 Band Neuts % (Manual) 17 H Lymphocytes % (Manual) 39 Monocytes % (Manual) 23 H Eosinophils % (Manual) 2 Basophils % (Manual) 1 Myelocytes % (Man) 1 H Abs Neuts (Manual) 0.5 L* Differential Comment . Toxic Granulation 1+ H Dohle Bodies Present H Platelet Estimate Low L Platelet Morphology Normal Basophilic Stippling Faint H Microbiology 01/14/18 00:28 Blood - Peripheral Aerobic Blood Culture - Preliminary No growth in 1 day 01/14/18 00:28 Blood - Peripheral Anaerobic Blood Culture - Preliminary No growth in 1 day 01/13/18 13:36 Blood - Peripheral Aerobic Blood Culture - Preliminary No growth in 2 days 01/13/18 13:36 Blood - Peripheral Anaerobic Blood Culture - Preliminary No growth in 2 days 01/13/18 13:36 Catheterized Urine Urine Culture - Final No growth in 48 hours - Imaging Abdomen/Pelvis CT 01/13/18 00:00 CONCLUSION: 1. No acute findings within the abdomen and pelvis. Severe rectal constipation with distention to almost 10 cm. 2. Very large right-sided inguinal hernia containing bowel but without evidence for obstruction. 3. Mild compression deformities at the thoracolumbar junction which appear old. Chest X-Ray 01/13/18 13:14 CONCLUSION: No acute cardiopulmonary process. There is chronic change described above. Head CT 01/13/18 13:14 CONCLUSION: 1. No acute abnormality is seen. 2. Chronic cerebral atrophy. 3. Areas of encephalomalacia in the left periventricular region extending to the posterior left basal ganglia. . Scrotum Ultrasound 01/13/18 13:17 CONCLUSION: 1. Bilateral inguinal hernias. 2. The testicles appear normal. 3. Bilateral mild hydroceles. - Procedures None Assessment and Plan - Plan 77-year-old man with Neutropenic sepsis: WBC <4000, HR>90; source UTI. Normal lactic acid Status post cefepime and vancomycin in ED, continue antibiotics pending culture report 01/15: As per ID specialist recommended to continue antibiotics, consult GI for Obstipation and rectal distention, Recommended Palliative Care consult, as per airways control specialist he has Neutropenia status post Neupogen injection, LGL Leukemia patient not candidate for any aggressive management, flow cytometry pending, GI specialist recommended Clear liquids, IV Hydration, Lactinex the patient was not interested in any procedure. discussed with ID specialist Doctor Ely Arevalo she wants the patient to be evaluated by Psychiatry specialist, removed Vancomycin and will continue Cefepime if by tomorrow stable and ANC improve to remove Cefepime, she signed off the case. Calorie count. UTI Continue with above antibiotics cefepime Neutropenia Patient with a history of LGL leukemia, No evidence of secondary infection due to Neutropenia, to continue Neupogen, Discussed with Doctor Luis V. Andavolu. Check CT abdomen/pelvics and consider CT chest Neutropenic precaution History of pancytopenia Heme-Onc consultation pending Head CT negative CT abdomen/pelvis pending and consider Chest CT Monitor CBC Enlarged scrotum Testicular ultrasound noted and reviewed with finding of bilateral inguinal hernia Failure to thrive Speech therapist consult for swallow eval Dietitian chromosomal disorders counselor PT consult to treat and eval History of cerebral palsy History of congenital right lower extremity and right upper extremity deformity PT to treat and eval OT consultation Obstipation patient seen by GI and Palliative care he elected conservative management no procedures, giving fleet enema and Lactulose. had one BM yesterday. Hypertension Resume oral antihypertensive medication with holding parameter DVT prophylaxis: Chemical anti-prophylaxis is contraindicated, bilateral SCDs Code Status: DNR Discussed Condition With: Patient and nurse Miss Ambrosio. Discharge Planning: Once cleared by airways control specialist.
--- NOTE | 2018-01-16 12:00 | P.PNONC ---
Subjective Interval history: Afebrile "I feel like a pin cushion" Patient reports he is overall feeling somewhat better since being admitted into the hospital Desperately requesting that he not have any further injections into the skin Objective Vital Signs/Intake & Output: Vital Signs 01/15/18 16:00 01/15/18 20:00 01/16/18 00:00 Temperature 97.9 F 98.2 F 97.6 F Pulse Rate 95 H 88 96 H Respiratory Rate 16 20 20 Blood Pressure 92/54 L 95/53 L 98/52 L Pulse Oximetry 99 98 98 01/16/18 04:00 01/16/18 08:00 Temperature 97.3 F L 97.3 F L Pulse Rate 94 H 93 H Respiratory Rate 20 18 Blood Pressure 98/53 L 101/58 L Pulse Oximetry 98 100 Intake & Output 01/15/18 01/16/18 01/16/18 18:59 06:59 18:59 Intake Total 1000 / 1000 220 / 220 Balance 1000 / 1000 220 / 220 Weight 98 lb 1.691 oz Intake: IV 350 / 350 100 / 100 Maxipime Inj 2,000 MG In NS Inj 100 / 100 100 / 100 100 ML @ 200 mls/hr IV.SIG Q12H JOSÉ Rx#:[id number] Vancomycin Inj 1,000 MG In NS 250 / 250 Inj 250 ML @ 250 mls/hr IV.SIG Q24H JOSÉ Rx#:[id number] Oral 650 / 650 120 / 120 Other: # Incontinent Voids 1 # Urine Diapers 5 Date of Last Bowel Movement 01/15/18 # Bowel Movements 5 # Incontinent Bowel Movements 1 Result Diagrams: 01/16/18 04:10 01/14/18 05:09 Laboratory Results: Laboratory Results - last 24 hr 01/16/18 04:10 WBC 1.3 L RBC 2.59 L Hgb 7.7 L Hct 22.8 L MCV 88.0 MCH 29.8 MCHC 33.8 RDW 16.6 Plt Count 74 L D MPV 7.6 Prelim Diff (Auto) Manual diff required WBC Differential Manual diff final Seg Neuts % (Manual) 17 Band Neuts % (Manual) 17 H Lymphocytes % (Manual) 39 Monocytes % (Manual) 23 H Eosinophils % (Manual) 2 Basophils % (Manual) 1 Myelocytes % (Man) 1 H Abs Neuts (Manual) 0.5 L* Differential Comment . Toxic Granulation 1+ H Dohle Bodies Present H Platelet Estimate Low L Platelet Morphology Normal Basophilic Stippling Faint H Culture Results: Microbiology 01/14/18 00:28 Aerobic Blood Culture - Preliminary Blood - Peripheral No growth in 2 days Anaerobic Blood Culture - Preliminary No growth in 2 days 01/13/18 13:36 Aerobic Blood Culture - Preliminary Blood - Peripheral No growth in 3 days Anaerobic Blood Culture - Preliminary No growth in 3 days 01/13/18 13:36 Urine Culture - Final Catheterized Urine No growth in 48 hours Medications: Active Medications Generic Name Dose Route Start Last Admin Trade Name Freq PRN Reason Stop Dose Admin Cefepime HCl 2,000 mg/ Sodium 100 mls @ 200 mls/hr 01/14/18 04:00 01/16/18 04 :55 Chloride IV.SIG Infused Q12H JOSÉ Infusion Sodium Chloride 1,000 mls @ 70 mls/hr 01/13/18 16:30 01/16/18 01:35 Ns Inj IV.CONT 70 mls/hr .[id number] JOSÉ Administration Lactobacillus Acidophilus 1 tab 01/13/18 18:00 01/16/18 09:25 Lactinex PO 1 tab TID JOSÉ Administration Metoprolol Tartrate 12.5 mg 01/14/18 15:00 01/16/18 09:25 Lopressor PO Not Given BID JOSÉ Objective Remarks: GENERAL: Chronically ill-appearing cachectic older male resting in bed talking on the phone on approach. He does not appear to be in any acute distress. SKIN: Warm and dry. HEAD: Normocephalic. EYES: No scleral icterus. No injection or drainage. NECK: Supple, trachea midline. No JVD or lymphadenopathy. CARDIOVASCULAR: + S1/S2. RESPIRATORY: Breath sounds equal bilaterally. No accessory muscle use. GASTROINTESTINAL: Abdomen soft, non-tender, nondistended. EXTREMITIES: No cyanosis, or edema. MUSCULOSKELETAL: Significant muscle wasting to bilateral lower extremities, more so on the right NEUROLOGICAL: Awake and alert. Normal speech. Right extremity flaccid Assessment/Plan - Plan Mr. Deal is a 77-year-old gentleman with a history of cerebral palsy, who was currently admitted for pancytopenia and neutropenia. 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 Patient was seen on April 06, 2013 in regards to his LGL leukemia and at that time the T-cell LGL leukemia was on observation and he was on methotrexate for his rheumatoid arthritis. He was to continue observation every 3 months. Plan: 1. 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 He is not having any fevers. He is currently on antimicrobial therapy with cefepime. 2. LGL leukemia, patient is not a candidate for any aggressive therapy, therefore a repeat bone marrow biopsy is not warranted at this time. 3. Continue supportive care. - Attending Statement The exam, history, and the medical decision-making described in the above note were completed with the assistance of the mid-level provider. I reviewed and agree with the findings presented. I attest that I had a [id number] encounter with the patient on the same day, and personally performed and documented my assessment and findings in the medical record. Resting comfortably in bed. 77 yoM with T cell LGL admitted with infection on neupogen. Continue to monitor counts. Not a candidate for aggressive treatment.
--- NOTE | 2018-01-16 21:53 | P.CONPSY ---
Provisional Diagnosis Admission Date: January 13, 2018 15:56 [place].: Adjustment Disorder History of Present Illness Service: Psychiatry Consult date: 01/16/18 Reason for Consult: r/o depression Primary Care Provider: UNKNOWN Chief Complaint: Failure to thrive, generalized weakness History of Present Illness: Pt is a 77 YOWM admitted for failure to thrive and generalized weakness. [facility] and prior to admission, reports that appetite went away and he stopped eating due to GI upset. Pt has leukemia and is being followed by pallative care. He states that he is feeling better and appetite is returning since being in the hospital. He denies depression and anxiety symptoms. He denies SI/HI. He is pleasant and calm. senior staff specialized employment state that pt has been eating much better and has not had any agitation or behavioral concerns. [facility] - History History Provided By: Patient - Medical History Medical History: Medical History (Last Reviewed 01/16/18 @ 21:51 by Milvia Griffin MD) Cerebral palsy Congenital deformity Diarrhea Failure to thrive Hernia of abdominal wall Hypertension Inguinal hernia Large granular lymphocytic leukemia Nausea Rheumatoid arthritis - Surgical History Surgical History: Surgical History (Last Reviewed 01/16/18 @ 21:51 by Milvia Griffin MD) History of cataract surgery Status post closed reduction of dislocated total hip prosthesis - Family History Family History: Family History (Last Reviewed 01/16/18 @ 21:51 by Milvia Griffin MD) Father Alzheimer's dementia Cancer - Social History I have reviewed the patient's Social History: Yes - Tobacco History Tobacco Use In Past 30 Days: No Smoking Status: Former smoker Tobacco Type: Cigarettes - Alcohol History How Often Do You Have a Drink Containing Alcohol: Never - Substance Use History Substance History: No History of Abuse - Immunization History Tetanus Immunization: Unsure Hx Influenza Vaccine This Season: No Medications and Allergies Active Medications: Active Medications Acetaminophen (Tylenol) 650 mg PO Q4H PRN PRN Reason: Temp > 100.4 Al Hydroxide/Mg Hydroxide (Milk Of Magnesia Liq) 30 ml PO Q12H PRN PRN Reason: Mild Constipation Cefepime HCl 2,000 mg/ Sodium (Chloride) 100 mls @ 200 mls/hr IV.SIG Q12H JOSÉ Last Infusion: 01/16/18 16:35 Dose: Infused Sodium Chloride (Ns Inj) 1,000 mls @ 70 mls/hr IV.CONT .[id number] [facility] Last Admin: 01/16/18 16:07 Dose: 70 mls/hr Filgrastim 300 mcg/ Dextrose 26 mls @ 50 mls/hr IV.SIG DAILY@1400 [facility] Stop: 01/17/18 13:59 Last Infusion: 01/16/18 14:05 Dose: Infused Lactobacillus Acidophilus (Lactinex) 1 tab PO TID [facility] Last Admin: 01/16/18 18:03 Dose: 1 tab Metoprolol Tartrate (Lopressor) 12.5 mg PO BID [facility] Last Admin: 01/16/18 20:57 Dose: 12.5 mg Miscellaneous (Pill Splitter) 1 each OTHER [facility] Ondansetron HCl (Zofran Inj) 4 mg IV.PUSH Q6H PRN PRN Reason: NAUSEA OR VOMITING Sodium Chloride (Ns Flush) 2 ml IV.FLUSH PRN PRN PRN Reason: FLUSH AFTER USING IV ACCESS Allergies Allergy/AdvReac Type Severity Reaction Status Date / Time penicillin G Allergy Unknown Hives Verified 01/13/18 13:16 Home Medications Medication Instructions Recorded Confirmed Type Lactobacillus acidoph-pectin 2 tab PO DAILY 01/13/18 01/13/18 History [Acidophilus-Pectin] diphenoxylate-atropine 2 tab PO Q6-8H PRN 01/13/18 01/13/18 History hydroxyzine HCl 25 mg PO TID-QID 01/13/18 01/13/18 History metoprolol tartrate 25 mg PO BID 01/13/18 01/13/18 History Exam Vital signs: Vital Signs 01/16/18 00:00 01/16/18 04:00 01/16/18 08:00 Temperature 97.6 F 97.3 F L 97.3 F L Pulse Rate 96 H 94 H 93 H Respiratory Rate 20 20 18 Blood Pressure 98/52 L 98/53 L 101/58 L Pulse Oximetry 98 98 100 01/16/18 12:00 01/16/18 16:00 01/16/18 20:00 Temperature 97.7 F 98.1 F 97.3 F L Pulse Rate 106 H 97 H 119 H Respiratory Rate 18 18 19 Blood Pressure 97/54 L 113/61 107/55 L Pulse Oximetry 99 100 98 Intake & Output 11/17/18 11/17/18 11/18/18 06:59 18:59 06:59 Intake Total 220 / 220 1126 / 1126 Balance 220 / 220 1126 / 1126 Weight 44.5 kg Intake: IV 100 / 100 1126 / 1126 NS Inj 1,000 ML @ 70 mls/hr IV. 1000 / 1000 CONT .[id number] JOSÉ Rx#:[id number] Maxipime Inj 2,000 MG In NS Inj 100 / 100 100 / 100 100 ML @ 200 mls/hr IV.SIG Q12H JOS[facility] Rx#:[id number] Neupogen Inj 300 MCG In D5W Inj 26 / 26 25 ML @ 50 mls/hr IV.SIG DAILY @1400 JOS[facility] Rx#:[id number] Oral 120 / 120 Other: # Voids 3 # Incontinent Voids 1 Date of Last Bowel Movement 01/15/18 # Bowel Movements 3 # Incontinent Bowel Movements 1 Mental Status Examination Appearance: Appropriate Consciousness: Alert Orientation: x4 Motor Activity: Other (lying in hospital bed) Speech: Other (soft) Language: Adequate Fund of Knowledge: Adequate Attention and Concentration: Adequate Memory: Unremarkable Mood: Appropriate Affect: Appropriate Thought Process & Associations: Intact Thought Content: Appropriate Hallucination Type: None Delusion Type: None Suicidal Ideation: No Suicidal Plan: No Suicidal Intention: No Homicidal Ideation: No Homicidal Plan: No Homicidal Intention: No Insight: Adequate Judgment: Adequate Assessment and Plan - Assessment (1) Adjustment disorder Code(s): F43.20 - Adjustment disorder, unspecified Status: Acute - Plan Plan: Estimated LOS: [] days Pt reports improved mood and appetite. No depression or anxiety symptoms elicited. No psychiatric medications are indicated at this time. Justification for Continued Inpatient Stay: medical complications
[2018-01-17] MEDS: Sod Chloride 0.9% Inj 1,000 ML IV.CONT SCH ×2 (06:25→20:56)
[2018-01-17] MEDS: Metoprolol Tartrate 25 MG Tablet PO SCH ×2 (08:00→20:55)
[2018-01-17] MEDS: Lactobacillus Acidophilus/L. Spores Tablet PO SCH ×3 (08:00→17:00)
--- NOTE | 2018-01-17 08:45 | P.PN ---
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 Patient is a resident at local nursing facility. Apparently over the past several days patient has had decreased appetite and has been defecating on himself. He was seen by a generation manager doctor today who suggested patient be sent to the ED for evaluation. Patient is alert and oriented x3 during my exam and report appropriately to all my questions. Abnormal lab include severe pancytopenia, neutropenia and abnormal UA. Patient had a normal head CT. 01/14: Seen in his bedroom, nathanael asked for Nutrition evaluation, the patient has Cachexia, continue antibiotics for UTI, discussed with nurse Miss Cruz. 01/15: As per ID specialist recommended to continue antibiotics, consult GI for Obstipation and rectal distention, Recommended Palliative Care consult, as per environmental safety specialist he has Neutropenia status post Neupogen injection, LGL Leukemia patient not candidate for any aggressive management, flow cytometry pending, GI specialist recommended Clear liquids, IV Hydration, Lactinex the patient was not interested in any procedure. discussed with ID specialist Doctor Ely Arevalo she wants the patient to be evaluated by Psychiatry specialist, removed Vancomycin and will continue Cefepime if by tomorrow stable recommended to discontinue Cefepime tomorrow and she signed off the case. also recommended to start Regular diet, Calorie count. 01/16: Stable in his bedroom, giving Fleet enema, had BM will repeat Fleet enema today. 01/17: Seen in his bedroom No nausea, vomit or diarrhea, okay to discharge from medicine standpoint to Rehab once cleared by assurance specialist who recommended supportive Care. Physical Exam Vital signs: Vital Signs 01/16/18 12:00 01/16/18 16:00 01/16/18 20:00 Temperature 97.7 F 98.1 F 97.3 F L Pulse Rate 106 H 97 H 119 H Respiratory Rate 18 18 19 Blood Pressure 97/54 L 113/61 107/55 L Pulse Oximetry 99 100 98 01/17/18 00:00 01/17/18 08:00 01/17/18 08:37 Temperature 97.8 F 97.6 F Pulse Rate 93 H 92 H Respiratory Rate 19 16 Blood Pressure 103/55 L 111/55 L Pulse Oximetry 98 98 98 Intake & Output 01/16/18 01/17/18 01/17/18 18:59 06:59 18:59 Intake Total 1126 / 1126 1580 / 1580 Balance 1126 / 1126 1580 / 1580 Weight 44.5 kg Intake: IV 1126 / 1126 1100 / 1100 NS Inj 1,000 ML @ 70 mls/hr IV. 1000 / 1000 1000 / 1000 CONT .[id number] [facility] Rx#:[id number] Maxipime Inj 2,000 MG In NS Inj 100 / 100 100 / 100 100 ML @ 200 mls/hr IV.SIG Q12H [facility] Rx#:[id number] Neupogen Inj 300 MCG In D5W Inj 26 / 26 25 ML @ 50 mls/hr IV.SIG DAILY @1400 [facility] Rx#:[id number] Oral 480 / 480 Other: # Voids 3 2 Date of Last Bowel Movement 01/16/18 # Bowel Movements 3 Narrative: GENERAL: Poorly nourished, No acute distress. SKIN: Cool and dry, no generalized rash HEAD: Atraumatic. Normocephalic. No temporal or scalp tenderness. EYES: Pupils equal round and reactive. Scleral icterus. No injection or drainage. No petechia ENT: Nothing abnormal detected NECK: Trachea midline. Supple, nontender, no meningeal signs. CARDIOVASCULAR: HS audible. RESPIRATORY: Clear to auscultation bilaterally. GASTROINTESTINAL: Abdomen soft nontender. MUSCULOSKELETAL: Right upper extremity with bony deformities and atrophy of the muscles. NEUROLOGICAL: Alert oriented 3. Nonfocal. Results - Labs CBC & Chem 7: 01/16/18 04:10 01/14/18 05:09 Microbiology 01/14/18 00:28 Blood - Peripheral Aerobic Blood Culture - Preliminary No growth in 2 days 01/14/18 00:28 Blood - Peripheral Anaerobic Blood Culture - Preliminary No growth in 2 days 01/13/18 13:36 Blood - Peripheral Aerobic Blood Culture - Preliminary No growth in 3 days 01/13/18 13:36 Blood - Peripheral Anaerobic Blood Culture - Preliminary No growth in 3 days - Imaging Abdomen/Pelvis CT 01/13/18 00:00 CONCLUSION: 1. No acute findings within the abdomen and pelvis. Severe rectal constipation with distention to almost 10 cm. 2. Very large right-sided inguinal hernia containing bowel but without evidence for obstruction. 3. Mild compression deformities at the thoracolumbar junction which appear old. Chest X-Ray 01/13/18 13:14 CONCLUSION: No acute cardiopulmonary process. There is chronic change described above. Head CT 01/13/18 13:14 CONCLUSION: 1. No acute abnormality is seen. 2. Chronic cerebral atrophy. 3. Areas of encephalomalacia in the left periventricular region extending to the posterior left basal ganglia. . Scrotum Ultrasound 01/13/18 13:17 CONCLUSION: 1. Bilateral inguinal hernias. 2. The testicles appear normal. 3. Bilateral mild hydroceles. - Procedures None Assessment and Plan - Plan 77-year-old man with Neutropenic sepsis: WBC <4000, HR>90; source UTI. Normal lactic acid Status post cefepime and vancomycin in ED, continue antibiotics pending culture report 01/15: As per ID specialist recommended to continue antibiotics, consult GI for Obstipation and rectal distention, Recommended Palliative Care consult, as per environmental safety specialist he has Neutropenia status post Neupogen injection, LGL Leukemia patient not candidate for any aggressive management, flow cytometry pending, GI specialist recommended Clear liquids, IV Hydration, Lactinex the patient was not interested in any procedure. discussed with ID specialist Doctor Ely Arevalo she wants the patient to be evaluated by Psychiatry specialist, removed Vancomycin and will continue Cefepime if by tomorrow stable and ANC improve to remove Cefepime, she signed off the case. Calorie count. UTI Continue with above antibiotics cefepime Neutropenia Patient with a history of LGL leukemia, No evidence of secondary infection due to Neutropenia, to continue Neupogen, Discussed with Doctor Luis Vivar. Check CT abdomen/pelvics and consider CT chest Neutropenic precaution, as per Hematology to continue Supportive cre. History of pancytopenia Heme-Onc consultation pending Head CT negative CT abdomen/pelvis pending and consider Chest CT Monitor CBC Enlarged scrotum Testicular ultrasound noted and reviewed with finding of bilateral inguinal hernia Failure to thrive Speech therapist consult for swallow eval Dietitian child welfare counselor PT consult to treat and eval History of cerebral palsy History of congenital right lower extremity and right upper extremity deformity PT to treat and eval OT consultation Obstipation patient seen by GI and Palliative care he elected conservative management no procedures, giving fleet enema and Lactulose. had one BM yesterday. Hypertension Resume oral antihypertensive medication with holding parameter DVT prophylaxis: Chemical anti-prophylaxis is contraindicated, bilateral SCDs Code Status: DNR Discussed Condition With: Patient and Nurse Miss Ambrosio Discharge Planning: Expected in am tomorrow.
--- NOTE | 2018-01-17 13:02 | P.PNONC ---
Subjective Interval history: Resting in bed, eating lunch. Objective Vital Signs/Intake & Output: Vital Signs 01/16/18 16:00 01/16/18 20:00 01/17/18 00:00 Temperature 98.1 F 97.3 F L 97.8 F Pulse Rate 97 H 119 H 93 H Respiratory Rate 18 19 19 Blood Pressure 113/61 107/55 L 103/55 L Pulse Oximetry 100 98 98 01/17/18 08:00 01/17/18 08:37 01/17/18 12:00 Temperature 97.6 F 97.3 F L Pulse Rate 92 H 86 Respiratory Rate 16 14 Blood Pressure 111/55 L 110/55 L Pulse Oximetry 98 98 100 Intake & Output 01/16/18 01/17/18 01/17/18 18:59 06:59 18:59 Intake Total 1126 / 1126 1580 / 1580 Balance 1126 / 1126 1580 / 1580 Weight 44.5 kg Intake: IV 1126 / 1126 1100 / 1100 NS Inj 1,000 ML @ 70 mls/hr IV. 1000 / 1000 1000 / 1000 CONT .[id number] [facility] Rx#:[id number] Maxipime Inj 2,000 MG In NS Inj 100 / 100 100 / 100 100 ML @ 200 mls/hr IV.SIG Q12H [facility] Rx#:[id number] Neupogen Inj 300 MCG In D5W Inj 26 / 26 25 ML @ 50 mls/hr IV.SIG DAILY @1400 [facility] Rx#:[id number] Oral 480 / 480 Other: # Voids 3 2 Date of Last Bowel Movement 01/16/18 # Bowel Movements 3 Result Diagrams: 01/16/18 04:10 01/14/18 05:09 Culture Results: Microbiology 01/14/18 00:28 Aerobic Blood Culture - Preliminary Blood - Peripheral No growth in 3 days Anaerobic Blood Culture - Preliminary No growth in 3 days 01/13/18 13:36 Aerobic Blood Culture - Preliminary Blood - Peripheral No growth in 4 days Anaerobic Blood Culture - Preliminary No growth in 4 days 01/13/18 13:36 Urine Culture - Final Catheterized Urine No growth in 48 hours Medications: Active Medications Generic Name Dose Route Start Last Admin Trade Name Freq PRN Reason Stop Dose Admin Cefepime HCl 2,000 mg/ Sodium 100 mls @ 200 mls/hr 01/14/18 04:00 01/17/18 04 :50 Chloride IV.SIG Infused Q12H [facility] Infusion Sodium Chloride 1,000 mls @ 70 mls/hr 01/13/18 16:30 01/17/18 06:25 Ns Inj IV.CONT 70 mls/hr .[id number] [facility] Administration Filgrastim 300 mcg/ Dextrose 26 mls @ 50 mls/hr 01/16/18 14:00 01/16/18 14:05 IV.SIG 01/17/18 13:59 Infused DAILY@1400 [facility] Lactobacillus Acidophilus 1 tab 01/13/18 18:00 01/17/18 08:00 Lactinex PO 1 tab TID [facility] Administration Metoprolol Tartrate 12.5 mg 01/14/18 15:00 01/17/18 08:00 Lopressor PO 12.5 mg BID [facility] Administration Objective Remarks: GENERAL: thin, chronically ill appearing SKIN: Warm and dry. HEAD: Normocephalic. EYES: No scleral icterus. No injection or drainage. RESPIRATORY: No accessory muscle use. EXTREMITIES: No cyanosis, or edema. MUSCULOSKELETAL: decreased muscle tone on right side NEUROLOGICAL: Awake, alert, and oriented x3. Assessment/Plan - Plan Mr. Deal is a 77-year-old gentleman with a history of cerebral palsy, who was currently admitted for pancytopenia and neutropenia. 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 Patient was seen on April 06, 2013 in regards to his LGL leukemia and at that time the T-cell LGL leukemia was on observation and he was on methotrexate for his rheumatoid arthritis. He was to continue observation every 3 months. Plan: 1. 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 He is not having any fevers. He is currently on antimicrobial therapy with cefepime. 2. LGL leukemia, patient is not a candidate for any aggressive therapy, therefore a repeat bone marrow biopsy is not warranted at this time. 3. Continue supportive care.
[2018-01-18] MEDS: Sod Chloride 0.9% Inj 1,000 ML IV.CONT SCH (02:30)
[2018-01-18 05:21] LABS: Hemoglobin 7.5 gm/dL (13.0-17.0); Mean Corpuscular HGB Conc 32.7 % (32.0-36.0); Mean Corpuscular Hemoglobin 29.3 pg (27.0-34.0); Mean Corpuscular Volume 89.6 fL (80.0-100.0); Mean Platelet Volume 8.1 fL (7.0-11.0); Platelet Count 72 th/mm3 (150-450); Red Blood Count 2.56 mil/mm3 (4.50-5.90); Red Cell Distribution Width 16.4 % (11.6-17.2); White Blood Count 1.5 th/mm3 (4.0-11.0)
[2018-01-18 05:40] LABS: Anion Gap 8 meq/L (5-15); Blood Urea Nitrogen 23 mg/dL (7-18); Calcium 7.5 mg/dL (8.5-10.1); Carbon Dioxide 22.6 meq/L (21.0-32.0); Chloride 115 meq/L (98-107); Glomerular Filtration Rate Greater Than 89 mL/min (>89); Glucose,Random 82 mg/dL (74-106); Magnesium 1.7 mg/dL (1.5-2.5); Phosphorus 1.9 mg/dL (2.5-4.9); Potassium 3.7 meq/L (3.5-5.1); Sodium 146 meq/L (136-145)
[2018-01-18 08:18] VITALS: RESP 17
[2018-01-18 08:32] VITALS: TEMP 97.6
[2018-01-18] MEDS: Metoprolol Tartrate 25 MG Tablet PO SCH (08:54)
[2018-01-18] MEDS: Lactobacillus Acidophilus/L. Spores Tablet PO SCH ×2 (08:55→13:34)
--- NOTE | 2018-01-18 09:23 | P.PN ---
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 Patient is a resident at local nursing facility. Apparently over the past several days patient has had decreased appetite and has been defecating on himself. He was seen by a hand spring former doctor today who suggested patient be sent to the ED for evaluation. Patient is alert and oriented x3 during my exam and report appropriately to all my questions. Abnormal lab include severe pancytopenia, neutropenia and abnormal UA. Patient had a normal head CT. 01/14: Seen in his bedroom, nathanael asked for Nutrition evaluation, the patient has Cachexia, continue antibiotics for UTI, discussed with nurse Miss Cruz. 01/15: As per ID specialist recommended to continue antibiotics, consult GI for Obstipation and rectal distention, Recommended Palliative Care consult, as per review specialist he has Neutropenia status post Neupogen injection, LGL Leukemia patient not candidate for any aggressive management, flow cytometry pending, GI specialist recommended Clear liquids, IV Hydration, Lactinex the patient was not interested in any procedure. discussed with ID specialist Doctor Ely Arevalo she wants the patient to be evaluated by Psychiatry specialist, removed Vancomycin and will continue Cefepime if by tomorrow stable recommended to discontinue Cefepime tomorrow and she signed off the case. also recommended to start Regular diet, Calorie count. 01/16: Stable in his bedroom, giving Fleet enema, had BM will repeat Fleet enema today. 01/17: Seen in his bedroom, okay to discharge from medicine standpoint to Rehab once cleared by emergency room specialist who recommended supportive Care. 01/18: Stable in his bedroom, only on support management that may be done at Rehab, he was recommended by engineer specialist for discharge to SNF with Hospice, no nausea, vomit or diarrhea. Physical Exam Vital signs: Vital Signs 01/17/18 12:00 01/17/18 16:00 01/17/18 20:00 Temperature 97.3 F L 97.9 F 98.1 F Pulse Rate 86 91 H 95 H Respiratory Rate 14 16 18 Blood Pressure 110/55 L 99/57 L 105/54 L Pulse Oximetry 100 100 100 01/18/18 00:00 01/18/18 08:00 Temperature 97.4 F L 97.6 F Pulse Rate 88 90 Respiratory Rate 18 17 Blood Pressure 110/57 L 113/57 L Pulse Oximetry 98 98 Intake & Output 01/17/18 01/18/18 01/18/18 18:59 06:59 18:59 Intake Total 2200 / 2200 1680 / 1680 Balance 2200 / 2200 1680 / 1680 Weight 44.5 kg Intake: IV 1200 / 1200 NS Inj 1,000 ML @ 70 mls/hr IV. 1000 / 1000 CONT .[id number] [facility] Rx#:[id number] Maxipime Inj 2,000 MG In NS Inj 200 / 200 100 ML @ 200 mls/hr IV.SIG Q12H [facility] Rx#:[id number] Oral 2200 / 2200 480 / 480 Other: # Incontinent Voids 4 3 Date of Last Bowel Movement 01/17/18 # Incontinent Bowel Movements 4 3 Narrative: GENERAL: Poorly nourished, No acute distress. SKIN: Cool and dry, no generalized rash HEAD: Atraumatic. Normocephalic. No temporal or scalp tenderness. EYES: Pupils equal round and reactive. Scleral icterus. No injection or drainage. No petechia ENT: Nothing abnormal detected NECK: Trachea midline. Supple, nontender, no meningeal signs. CARDIOVASCULAR: HS audible. RESPIRATORY: Clear to auscultation bilaterally. GASTROINTESTINAL: Abdomen soft nontender. MUSCULOSKELETAL: Right upper extremity with bony deformities and atrophy of the muscles. NEUROLOGICAL: Alert oriented 3. Nonfocal. Results - Labs CBC & Chem 7: 01/18/18 04:12 01/18/18 04:12 Laboratory Results - last 24 hr 01/18/18 01/18/18 04:12 04:12 WBC 1.5 L RBC 2.56 L Hgb 7.5 L Hct 23.0 L MCV 89.6 MCH 29.3 MCHC 32.7 RDW 16.4 Plt Count 72 L MPV 8.1 Sodium 146 H Potassium 3.7 Chloride 115 H Carbon Dioxide 22.6 Anion Gap 8 BUN 23 H Creatinine 0.68 Estimated GFR Greater than 89 Random Glucose 82 Calcium 7.5 L Phosphorus 1.9 L Magnesium 1.7 Microbiology 01/14/18 00:28 Blood - Peripheral Aerobic Blood Culture - Preliminary No growth in 3 days 01/14/18 00:28 Blood - Peripheral Anaerobic Blood Culture - Preliminary No growth in 3 days 01/13/18 13:36 Blood - Peripheral Aerobic Blood Culture - Preliminary No growth in 4 days 01/13/18 13:36 Blood - Peripheral Anaerobic Blood Culture - Preliminary No growth in 4 days - Imaging Abdomen/Pelvis CT 01/13/18 00:00 CONCLUSION: 1. No acute findings within the abdomen and pelvis. Severe rectal constipation with distention to almost 10 cm. 2. Very large right-sided inguinal hernia containing bowel but without evidence for obstruction. 3. Mild compression deformities at the thoracolumbar junction which appear old. Chest X-Ray 01/13/18 13:14 CONCLUSION: No acute cardiopulmonary process. There is chronic change described above. Head CT 01/13/18 13:14 CONCLUSION: 1. No acute abnormality is seen. 2. Chronic cerebral atrophy. 3. Areas of encephalomalacia in the left periventricular region extending to the posterior left basal ganglia. . Scrotum Ultrasound 01/13/18 13:17 CONCLUSION: 1. Bilateral inguinal hernias. 2. The testicles appear normal. 3. Bilateral mild hydroceles. - Procedures None Assessment and Plan - Plan 77-year-old man with Neutropenic sepsis: WBC <4000, HR>90; source UTI. Normal lactic acid Status post cefepime and vancomycin in ED, continue antibiotics pending culture report 01/15: As per ID specialist recommended to continue antibiotics, consult GI for Obstipation and rectal distention, Recommended Palliative Care consult, as per review specialist he has Neutropenia status post Neupogen injection, LGL Leukemia patient not candidate for any aggressive management, flow cytometry pending, GI specialist recommended Clear liquids, IV Hydration, Lactinex the patient was not interested in any procedure. discussed with ID specialist Doctor Ely Arevalo she wants the patient to be evaluated by Psychiatry specialist, removed Vancomycin and will continue Cefepime if by tomorrow stable and ANC improve to remove Cefepime, she signed off the case. Calorie count. Removed antibiotics. okay to discharge from Medicine standpoint going to SNF with Hospice. UTI Treated with Cefepime Neutropenia Patient with a history of LGL leukemia, No evidence of secondary infection due to Neutropenia, to continue Neupogen, Discussed with Doctor Luis Vivar. Check CT abdomen/pelvics and consider CT chest Neutropenic precaution, as per Hematology to continue Supportive care. History of pancytopenia Heme-Onc consultation pending Head CT negative CT abdomen/pelvis pending and consider Chest CT Monitor CBC Enlarged scrotum Testicular ultrasound noted and reviewed with finding of bilateral inguinal hernia Failure to thrive Speech therapist consult for swallow eval Follow Dietitian recommendations at SNF. History of cerebral palsy History of congenital right lower extremity and right upper extremity deformity PT to treat and eval OT consultation Obstipation patient seen by GI and Palliative care he elected conservative management no procedures, giving fleet enema and Lactulose. had one BM yesterday. Hypertension Controlled. DVT prophylaxis: Chemical anti-prophylaxis is contraindicated, bilateral SCDs Code Status: DNR Discussed Condition With: Patient, Nurse Mr. Saldana and Program Services Assistant. Discharge Planning: Discharge to SNF with Hospice when bed available.
--- NOTE | 2018-01-18 11:18 | P.PNID ---
Infectious Disease Brief Note Reviewed Oncology notes. Cefepime IV stopped. Will sign off please call back if any change in clinical condition or questions. Vital Signs - 24 hr 01/17/18 12:00 01/17/18 16:00 01/17/18 20:00 Temperature 97.3 F L 97.9 F 98.1 F Pulse Rate 86 91 H 95 H Respiratory Rate 14 16 18 Blood Pressure 110/55 L 99/57 L 105/54 L Pulse Oximetry 100 100 100 01/18/18 00:00 01/18/18 08:00 Temperature 97.4 F L 97.6 F Pulse Rate 88 90 Respiratory Rate 18 17 Blood Pressure 110/57 L 113/57 L Pulse Oximetry 98 98 Laboratory Results - last 24 hr 01/18/18 01/18/18 04:12 04:12 WBC 1.5 L RBC 2.56 L Hgb 7.5 L Hct 23.0 L MCV 89.6 MCH 29.3 MCHC 32.7 RDW 16.4 Plt Count 72 L MPV 8.1 Sodium 146 H Potassium 3.7 Chloride 115 H Carbon Dioxide 22.6 Anion Gap 8 BUN 23 H Creatinine 0.68 Estimated GFR Greater than 89 Random Glucose 82 Calcium 7.5 L Phosphorus 1.9 L Magnesium 1.7
--- NOTE | 2018-01-18 12:06 | P.PNPAL ---
Reason for Visit Reason for visit: a. To assist with evaluation and management of symptoms including: Debility, poor appetite. b. To assist medical decision maker(s) with: better understanding of current medical conditions; weighing benefits/burdens of medical treatment options; making medical treatment decisions. Subjective Subjective/Interval History: Palliative care follow-up for assistance with symptom management, goals of care. Patient seen in his room, resting in bed in no acute distress. Verbal, alert x self, place and situation. Denies pain, shortness of breath, nausea vomiting or abdominal discomfort. Endorsing generalized pruritus secondary to dry skin. Febrile, hemodynamically stable. Blood and urine cultures negative thus far. Remains neutrophilic with count of 0.5. Met with patient and cousin Polly who is healthcare surrogate decision-maker. Hospice admissions nurse Monserrat at bedside. Patient confirmed goal of treatment, electing to discharge to long-term facility with hospice services. Polly's asking questions regarding hospice philosophy and benefits, all questions answered in great detail. Patient and family appreciated of visit. Advance Directives Health Care Surrogate: Copy in medical record Health Care Surrogate Name and Number: Cousin Polly Harmon Objective Vital Signs: Vital Signs 01/17/18 12:00 01/17/18 16:00 01/17/18 20:00 Temperature 97.3 F L 97.9 F 98.1 F Pulse Rate 86 91 H 95 H Respiratory Rate 14 16 18 Blood Pressure 110/55 L 99/57 L 105/54 L Pulse Oximetry 100 100 100 01/18/18 00:00 01/18/18 08:00 Temperature 97.4 F L 97.6 F Pulse Rate 88 90 Respiratory Rate 18 17 Blood Pressure 110/57 L 113/57 L Pulse Oximetry 98 98 Intake & Output 01/17/18 01/18/18 01/18/18 18:59 06:59 18:59 Intake Total 2200 / 2200 1680 / 1680 Balance 2200 / 2200 1680 / 1680 Weight 44.5 kg Intake: IV 1200 / 1200 NS Inj 1,000 ML @ 70 mls/hr IV. 1000 / 1000 CONT .[id number] JOSÉ Rx#:[id number] Maxipime Inj 2,000 MG In NS Inj 200 / 200 100 ML @ 200 mls/hr IV.SIG Q12H JOSÉ Rx#:[id number] Oral 2200 / 2200 480 / 480 Other: # Incontinent Voids 4 3 Date of Last Bowel Movement 01/17/18 # Incontinent Bowel Movements 4 3 Physical Exam: CONSTITUTIONAL/GENERAL: This is a cachectic elderly male in bed in no acute distress. TUBES/LINES/DRAINS: PIV. SKIN: No jaundice, rashes, or lesions. Ecchymoses on upper extremities. No wounds seen anteriorly. Skin temperature appropriate. Not diaphoretic. Dry skin. HEAD: Atraumatic. Normocephalic. EYES: Pupils equal and round and reactive. Extraocular motions intact. No scleral icterus. No injection or drainage. Fundi not examined. ENT: Hearing grossly normal. Nose without bleeding or purulent drainage. Moist oral mucosa. NECK: Trachea midline. Supple, nontender. CARDIOVASCULAR: Regular rate and rhythm without murmurs, gallops, or rubs. Peripheral pulses symmetric. RESPIRATORY/CHEST: Symmetric, unlabored respirations. Clear to auscultation. Breath sounds equal bilaterally. No wheezes, rales, or rhonchi. GASTROINTESTINAL: Abdomen soft, non-tender, nondistended. No guarding. Bowel sounds present. GENITOURINARY: Without palpable bladder distension. MUSCULOSKELETAL: Extremities without clubbing, cyanosis, or edema. Severe deformity to right arm/hand. Muscle wasting to all 4 extremities. LYMPHATICS: No palpable cervical or supraclavicular adenopathy. NEUROLOGICAL: Awake and alert. Motor and sensory grossly within normal limits. Follows commands. PSYCHIATRIC: Calm, pleasant. Diagnostic Tests Laboratory: Laboratory Results - last 72 hr 01/16/18 01/18/18 01/18/18 04:10 04:12 04:12 WBC 1.3 L 1.5 L RBC 2.59 L 2.56 L Hgb 7.7 L 7.5 L Hct 22.8 L 23.0 L MCV 88.0 89.6 MCH 29.8 29.3 MCHC 33.8 32.7 RDW 16.6 16.4 Plt Count 74 L D 72 L MPV 7.6 8.1 Prelim Diff (Auto) Manual diff required WBC Differential Manual diff final Seg Neuts % (Manual) 17 Band Neuts % (Manual) 17 H Lymphocytes % (Manual) 39 Monocytes % (Manual) 23 H Eosinophils % (Manual) 2 Basophils % (Manual) 1 Myelocytes % (Man) 1 H Abs Neuts (Manual) 0.5 L* Differential Comment . Toxic Granulation 1+ H Dohle Bodies Present H Platelet Estimate Low L Platelet Morphology Normal Basophilic Stippling Faint H Sodium 146 H Potassium 3.7 Chloride 115 H Carbon Dioxide 22.6 Anion Gap 8 BUN 23 H Creatinine 0.68 Estimated GFR Greater than 89 Random Glucose 82 Calcium 7.5 L Phosphorus 1.9 L Magnesium 1.7 Result Diagrams: 01/18/18 04:12 01/18/18 04:12 Microbiology: Microbiology 01/14/18 00:28 Aerobic Blood Culture - Preliminary Blood - Peripheral No growth in 4 days Anaerobic Blood Culture - Preliminary No growth in 4 days 01/13/18 13:36 Aerobic Blood Culture - Final Blood - Peripheral No growth in 5 days Anaerobic Blood Culture - Final No growth in 5 days 01/13/18 13:36 Urine Culture - Final Catheterized Urine No growth in 48 hours Assessment and Plan - Disease Oriented Problem List (1) Physical deconditioning (2) Cachexia (3) Neutropenia (4) Acute UTI (5) Adult failure to thrive (6) Large granular lymphocytic leukemia (7) Rheumatoid arthritis - Symptom Scale (1) Poor appetite 0-10 Scale: Unable to quantify (2) Debility 0-10 Scale: Unable to quantify Pertinent Non-Medical Issues: Psychosocial: Patient originally from [place]. In [place] since the . He is , one biological daughter. 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 No service. Spiritual: No yarsanism affiliation. Legal: Designation of healthcare surrogate in file. Ethical issues impacting care: No ethical issues identified. Important Contacts: Cousin/[facility] Prognosis: Mr. 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 Patient presented to ED on 01/13/18 for evaluation of generalized weakness and poor appetite. Patient was found neutropenic and pancytopenic. Patient with progressive physical and clinical decline. Resident of [facility] since 1991, currently no longer able to care for himself. Mainly bedbound and incontinent of bowel for the past month. Patient is not a candidate for systemic therapy for his leukemia given his clinical condition. Overall prognosis is poor at the setting of profound physical deconditioning, failure to thrive, cachexia and multiple comorbidities. Patient appears hospice appropriate should he elects comfort directed care. He is a very high risk of further decompensation , continued decline and . Code Status: No Code DNR Plan: * CODE STATUS: DNR/DNI. Community DNR has been signed by patient, copy sent to EMR. * HEALTHCARE DECISION-MAKING: Patient participated in medical decision making. He appears to retain the ability to weight benefits versus burden of treatment options. Patient was assisted with completion of advance directives. Patient has designated his cousin Polly Harmon as healthcare surrogate decision maker. * GOALS OF CARE: Patient electing conservative management short of no code. Plan to discharge to long-term facility [facility] with hospice given overall poor prognosis for prolonged survival. Patient with progressive physical decline. Baseline cerebral palsy, LGL leukemia for which he is not a candidate for systemic treatment, failure to thrive with cachexia and multiple other comorbidities. [facility] supportive of patient's wishes. * SYMPTOMS: =Poor appetite: Patient reports that his appetite has improved since being at the hospital. Dietitian following, patient at nutritional risk secondary to diagnosis and very low BMI of 15. Patient currently on a full liquid diet eating about 75% of his meals. Ensure 3 times daily recommended by hoof and shoe inspector. Patient may benefit from trial of Remeron 15mg PO at . =Debility : Progressive. Patient with profound physical deconditioning, cachexia. No longer able to care for himself, plan to discharge to long-term facility. Unlikely to improve in the setting of multiple comorbidities and progressive decline. * Case discussed with [place] real [employer] financial analyst Monserrat. * Palliative care to continue to follow-up for further clarifications of goals of care, family support as patient's clinical course continues to evolve. Time Spent Total Floor Time (mins): 22 (Total time to include review of medical records, physical exam, goals of care conversation with patient and family, case discussion with hospice care sales consultant.) >50% Time in Counseling or Coordination of Care: Yes (Total visit time = 22 minutes; > 50% spent counseling/coordinating care) Attestation Attestation: To help prompt me to consider important information that might be impacting today's encounter and assessment, information from prior notes written by myself or my colleagues may have been "brought forward" into today's note. My signature on this note, however, is an attestation that I personally performed the exam, history, and/or decision-making noted today, and, unless otherwise indicated, the interactions with patient, family, and staff as well as the review of records all occurred today. I also attest that the listed assessment and stated plan reflect my best clinical judgment today based on the combination of historical information, prior notes, and today's exam/ interactions. When time spent is documented, it refers only to time spent today by the signer, or if indicated, combined time spent today by collaborating physician/nurse practitioner.
[2018-01-18 12:24] VITALS: BP 93/53; PULSE 93; O2SAT 100
== END 2018-01-18 15:23 | disposition hospice, inpatient (51) ==
LOC: NEPE 12:40 → NEDA 15:56 → N07 18:26
PROVIDERS: ADMIT Internal Medicine; ATTEND Internal Medicine